=== PATIENT | female | born 1955 | race Caucasian/White ===

== ENCOUNTER 2016-11-01 12:24 | Outpatient (CLI) | payer MEDICARE, MEDICAID | END 2016-11-01 12:25 | disposition critical access hospital (66) | LOC: EMS 12:24 | PROVIDERS: ATTEND Surgery | DX: R10.9 Unspecified abdominal pain (principal) | CPT/HCPCS: A0425; A0427 ==

== ENCOUNTER 2016-11-01 12:49 | Emergency (ER) | payer MEDICARE, MEDICAID ==
[2016-11-01] MEDS ORDERED: HYDROmorphone 1 MG/ML SYRINGE IVP STA ×2 (13:10→16:34)
--- NOTE | 2016-11-01 13:15 | ED Physician Documentation ---
PD HPI ABD PAIN - Stated complaint Stated Complaint: ABD PX - Chief complaint Chief Complaint: Abd Pain - History obtained from History obtained from: Patient, EMS - History of Present Illness Timing - onset: Other (This is a 61-year-old woman who presents by an ambulance for abdominal pain. 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 She has had multiple abdominal surgeries including appendectomy, bowel resections for diverticulitis et cetera. She was seen here on April 21 of last year and sent to [place] for common bile duct stone associated with the above complicated medical issues. She was treated conservatively there with antibiotics per her without ERCP or surgical intervention based on her comorbidities. She was feeling okay for a while after antibiotics but for the last month has had constant right upper quadrant pain radiating to the back associated with poor appetite and incontinence of urine and bowel. She is noncompliant with all of her medications including insulin, warfarin et cetera. She hasn't taken any medications for the last month. She is care for at home by her son.) Review of Systems Ten Systems: 10 systems reviewed and negative Constitutional: denies: Fever, Chills Nose: denies: Rhinorrhea / runny nose, Congestion Cardiac: denies: Chest pain / pressure, Palpitations Respiratory: reports: Dyspnea, Cough GI: denies: Vomiting, Diarrhea PD PAST MEDICAL HISTORY - Past Medical History Past Medical History: Yes Cardiovascular: Hypertension, Coronary artery disease, Deep vein thrombosis, [place] Respiratory: Asthma, COPD, Emphysema Neuro: CVA, Head injury, Fainting Endocrine/Autoimmune: Type 2 diabetes GI: Hiatal hernia, Hemorrhoids, Diverticulitis : None Psych: Depression, Anxiety Musculoskeletal: Gout Derm: None - Past Surgical History Past Surgical History: Yes General: Appendectomy, Bowel surgery 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 - Present Medications Home Medications: Ambulatory Orders Medication Instructions Recorded Confirmed Gabapentin [Neurontin] 1,200 mg PO Q8H 01/15/15 11/01/16 Warfarin Sodium [Coumadin] 5 mg PO DAILY 01/15/15 11/01/16 Metoprolol Tartrate 25 mg PO DAILY 11/07/15 11/01/16 Insulin Lispro Protamin/Lispro 15 units SUBQ BID 11/01/16 11/01/16 [Humalog Mix 75-25 Kwikpen] Lisinopril 5 mg ORAL DAILY 11/01/16 11/01/16 Spironolactone 25 mg ORAL DAILY 11/01/16 11/01/16 buPROPion [Wellbutrin Sr] 100 mg ORAL BID 11/01/16 11/01/16 traMADol [Ultram] 50 mg ORAL DAILY 11/01/16 11/01/16 - Allergies Allergies/Adverse Reactions: Allergies Allergy/AdvReac Type Severity Reaction Status Date / Time latex Allergy Unknown Verified 11/01/16 12:58 levofloxacin Allergy Itching Verified 07/15/15 11:57 levopropoxyphene Allergy Unknown Verified 11/01/16 12:58 Penicillins Allergy Hives Verified 07/15/15 11:57 - Social History Does the pt smoke?: Yes Smoking Status: Former smoker Does the pt drink ETOH?: No Does the pt have substance abuse?: Yes - Family History Family history: reports: Non contributory - Immunizations Immunizations are current?: No Immunizations: TDAP >10years/unknown - POLST Patient has POLST: No PD ED PE NORMAL - Vitals Vital signs reviewed: Yes - General General: Alert and oriented X 3, No acute distress - HEENT HEENT: PERRL, EOMI - Neck Neck: Supple, no meningeal sign, No bony TTP - Cardiac Cardiac: RRR, No murmur - Respiratory Respiratory: No respiratory distress, Clear bilaterally - Abdomen Abdomen: Other (TTP RUQ without G/R) - Back Back: No CVA TTP, No spinal TTP - Extremities Extremities: Other (Bilateral LE amputations ) - Neuro Neuro: Alert and oriented X 3, Normal speech - Psych Psych: Normal mood, Normal affect Results - Vitals Vitals: Vital Signs - 24 hr 11/01/16 11/01/16 11/01/16 12:54 14:43 16:43 Temperature 36.9 C Heart Rate 90 88 87 Respiratory 18 18 20 Rate Blood Pressure 137/94 H 134/84 H 139/94 H O2 Saturation 94 92 96 11/01/16 11/01/16 17:54 18:45 Temperature 35.9 C L Heart Rate 88 Respiratory 20 Rate Blood Pressure 144/92 H O2 Saturation 90 L 92 Oxygen O2 Source Room air - EKG (time done) 1326 Rate: Rate (enter#) (90) Rhythm: NSR QRS: LVH Ischemia: Q waves (anterior), Non specific changes Computer interpretation: Agree with computer - Labs Labs: Laboratory Tests 11/01/16 11/01/16 11/01/16 13:44 13:44 13:44 WBC 11.4 H RBC 3.52 L Hgb 11.3 L Hct 33.6 L MCV 95.6 MCH 32.0 H MCHC 33.5 RDW 15.5 H Plt Count 218 MPV 8.2 Neut # 7.8 H Lymph # 2.4 [place] # 1.0 Eos # 0.1 Baso # 0.1 Absolute Nucleated RBC 0.03 Nucleated RBCs 0.2 PT 17.1 H INR 1.5 H Sodium 133 L Potassium 4.6 Chloride 101 Carbon Dioxide 22 Anion Gap 10.0 BUN 27 H Creatinine 0.6 Estimated GFR (MDRD) 102 Glucose 197 H Lactic Acid Calcium 8.3 L Total Bilirubin 0.8 AST 199 H ALT 494 H Alkaline Phosphatase 102 Troponin I Total Protein 6.0 L Albumin 3.0 L Globulin 3.0 Albumin/Globulin Ratio 1.0 Lipase 12 L 11/01/16 11/01/16 13:44 13:44 WBC RBC Hgb Hct MCV MCH MCHC RDW Plt Count MPV Neut # Lymph # [place] # Eos # Baso # Absolute Nucleated RBC Nucleated RBCs PT INR Sodium Potassium Chloride Carbon Dioxide Anion Gap BUN Creatinine Estimated GFR (MDRD) Glucose Lactic Acid 1.7 Calcium Total Bilirubin AST ALT Alkaline Phosphatase Troponin I 0.04 Total Protein Albumin Globulin Albumin/Globulin Ratio Lipase - Rads (name of study) RUQ sono Radiology: EMP read contemporaneously (cholelithiasis with with 7mm GB wall and 8mm CBD) PD MEDICAL DECISION MAKING - ED course ED course: 61-year-old woman with multiple comorbidities including ischemic cardiomyopathy , coronary disease presents with one month of right upper quadrant pain, and has cholecystitis with liver enzyme abnormalities on examination. Her discharge summary from [facility] was reviewed, previously had negative HIDA scan. But now seems like she does have cholecystitis. Surgeon here was consulted, Dr. Morin who felt that given her comorbidities needed to be transferred and [facility] was called at 430 p.m. Accepted to the hospitalist service there shortly thereafter by Dr. Dobbins Departure - Departure Disposition: 02 Transfer Acute Care Hosp Clinical Impression: Cholecystitis Condition: Stable Discharge Date/Time: 11/01/16 19:12
[2016-11-01] MEDS ORDERED: HYDROmorphone 1 MG/ML SYRINGE ONE ×2 (13:17→16:36)
--- NOTE | 2016-11-01 13:50 | XRAY Report ---
EXAM: CHEST RADIOGRAPHY EXAM DATE: 11/01/2016 01:24 PM. CLINICAL HISTORY: Cough. COMPARISON: None. TECHNIQUE: 1 view. FINDINGS: Lungs/Pleura: Irregular opacities in left lung base medially. No pleural effusion or pneumothorax. Mediastinum: Within exam limitations, cardiomediastinal contour is normal. Other: None. IMPRESSION: Irregular opacities in left lung base medially may represent atelectasis, aspiration or i nfectious process. [facility] Referring Provider Line: [phone] SITE ID: [id number]
[2016-11-01 13:52] LABS: BASOPHILS # (AUTO) 0.1 10^3/uL (0.0-0.1); BASOPHILS % (AUTO) 0.8 %; EOSINOPHILS # (AUTO) 0.1 10^3/uL (0.0-0.7); EOSINOPHILS % (AUTO) 0.5 %; HCT - HEMATOCRIT 33.6 % (37.0-47.0); HGB - HEMOGLOBIN 11.3 g/dL (12.0-16.0); LYMPHOCYTES # (AUTO) 2.4 10^3/uL (1.5-3.5); LYMPHOCYTES % (AUTO) 21.1 %; MEAN CORPUSCULAR HGB CONC 33.5 g/dL (32.0-36.0); MEAN CORPUSCULAR VOLUME 95.6 fL (81.0-99.0); MEAN PLATELET VOLUME 8.2 fL (7.9-10.8); MONOCYTES % (AUTO) 9.1 %; NEUTROPHILS # (AUTO) 7.8 10^3/uL (1.5-6.6); NEUTROPHILS % (AUTO) 68.5 %; NUCLEATED RED BLOOD CELLS AUTO 0.2 /100WBC; RED BLOOD COUNT 3.52 10^6/uL (4.20-5.40); RED CELL DISTRIBUTION WIDTH 15.5 % (12.0-15.0); UNCORRECTED WHITE BLOOD COUNT 11.4 x10^3/uL; WHITE BLOOD COUNT 11.4 x10^3/uL (4.8-10.8)
[2016-11-01 13:58] LABS: INR 1.5 (0.8-1.2); PT - PROTHROMBIN TIME 17.1 secs (9.9-12.6)
[2016-11-01 14:11] LABS: BILIRUBIN,TOTAL 0.8 mg/dL (0.2-1.0); CALCIUM 8.3 mg/dL (8.5-10.3); CREATININE 0.6 mg/dL (0.4-1.0); POTASSIUM 4.6 mmol/L (3.5-5.0)
[2016-11-01] MEDS ORDERED: metroNIDAZOLE 500 MG/100 ML 100 ML IV ONE (16:34)
[2016-11-01] MEDS ORDERED: cefTRIAXone 1 GM in SODIUM CHLORIDE 0.9% MINIBAG 100 ML IV STA (16:34)
[2016-11-01] MEDS ORDERED: cefTRIAXone 1 GM VIAL ONE (16:36)
--- NOTE | 2016-11-01 17:06 | Ultrasound Report ---
RIGHT UPPER QUADRANT ULTRASOUND: 11/01/2016 CLINICAL INDICATION: Pain. COMPARISON: 04/21/2016 TECHNIQUE: Real-time scanning was performed with medical service representative static images obtained. The liver measures 18.9 cm. Hepatic echotexture is normal. No intrahepatic biliary dilatation or focal parenchymal lesion is seen. The common bile duct is again prominent, measuring 8 mm. The gallbladder demonstrates stones and sludge within the lumen. Gallbladder wall thickening has increased, now measuring 7 mm (previously 4 mm). The right kidney measures 10.6 cm, and demonstrates a small cortical cyst and trace perinephric fluid. Right pleural effusion is again noted. IMPRESSION: INCREASING GALLBLADDER WALL THICKENING. STABLE CHOLELITHIASIS. STABLE PROMINENCE OF THE COMMON BILE DUCT. JOB #: [id number] EXT JOB #: [id number]
[2016-11-01] MEDS ORDERED: metroNIDAZOLE 500 MG/100 ML 100 ML ONE (17:11)
[2016-11-01 17:54] VITALS: BP 144/92
== END 2016-11-01 19:12 | disposition short-term general hospital (02) ==
LOC: EDUNIT# → ED 12:49 → SUPCPDRO 12:49 → ED 19:12
DX: K81.9 Cholecystitis, unspecified (principal); E11.9 Type 2 diabetes mellitus without complications; Z79.4 Long term (current) use of insulin; I25.10 Atherosclerotic heart disease of native coronary artery without angina pectoris; I10 Essential (primary) hypertension; I25.2 Old myocardial infarction; J44.9 Chronic obstructive pulmonary disease, unspecified; J45.909 Unspecified asthma, uncomplicated; Z86.73 Personal history of transient ischemic attack (TIA), and cerebral infarction without residual deficits; Z86.718 Personal history of other venous thrombosis and embolism; Z79.01 Long term (current) use of anticoagulants; T38.3X6A Underdosing of insulin and oral hypoglycemic [antidiabetic] drugs, initial encounter; T45.516A Underdosing of anticoagulants, initial encounter; Z87.891 Personal history of nicotine dependence; M10.9 Gout, unspecified; Z89.612 Acquired absence of left leg above knee; Z89.611 Acquired absence of right leg above knee
CPT/HCPCS: 36415; 71010; 76705; 80053; 83605; 83690; 84484; 85025; 85610; 93005; 93010; 96374; 96375; 96376; 99284; 99285; J1170

== ENCOUNTER 2016-11-01 18:58 | Outpatient (CLI) | payer MEDICARE, MEDICAID | END 2016-11-01 18:59 | disposition short-term general hospital (02) | LOC: EMS 18:58 | PROVIDERS: ATTEND Surgery | DX: K81.9 Cholecystitis, unspecified (principal) | CPT/HCPCS: A0425; A0426 ==

== ENCOUNTER 2016-12-22 15:33 | Outpatient (CLI) | payer MEDICARE, MEDICAID | END 2016-12-22 15:34 | disposition critical access hospital (66) | LOC: EMS 15:33 | PROVIDERS: ATTEND Surgery | DX: R30.9 Painful micturition, unspecified (principal); R46.89 Other symptoms and signs involving appearance and behavior | CPT/HCPCS: A0425; A0429 ==

== ENCOUNTER 2016-12-22 15:56 | Inpatient (IN) | payer MEDICARE, MEDICAID ==
[2016-12-22] MEDS ORDERED: SODIUM CHLORIDE 0.9% 1,000 ML IV ONE ×2 (16:05)
[2016-12-22] MEDS ORDERED: SODIUM CHLORIDE 0.9% 500 ML IV ONE (16:07)
--- NOTE | 2016-12-22 16:11 | ED Physician Documentation ---
History of Present Illness - Stated complaint Stated Complaint: FAILURE TO THRIVE - Chief complaint Chief Complaint: General - History obtained from History obtained from: Patient, EMS - History of Present Illness Timing: Other (1 month) Pain level max: 4 Pain level now: 3 Improved by: nothing Worsened by: nothing - Additonal information Additional information: Patient is a 61 year old female with a history of DM, CHF, cardiac disease. Per EMS, family states she has been non-compliant with her medications for at least the last month. (Last ED note 11/01 states noncompliant for at least a month at that time). States decreased appetite for several months. Lying in bed daily at home. Not seeing psychiatry or counseling. States feels depressed Review of Systems Ten Systems: 10 systems reviewed and negative Constitutional: denies: Fever, Chills Ears: denies: Ear pain Nose: denies: Rhinorrhea / runny nose, Congestion Throat: denies: Sore throat Cardiac: denies: Chest pain / pressure Respiratory: denies: Cough GI: denies: Nausea, Vomiting, Diarrhea Skin: denies: Rash Musculoskeletal: denies: Neck pain, Back pain Neurologic: reports: Generalized weakness. denies: Focal weakness, Numbness, Seizure, Confused, Altered mental status, Headache Psychiatric: reports: Depressed. 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 - Present Medications Home Medications: Ambulatory Orders Medication Instructions Recorded Confirmed Gabapentin [Neurontin] 1,200 mg PO Q8H 01/15/15 11/01/16 Warfarin Sodium [Coumadin] 5 mg PO DAILY 01/15/15 12/22/16 Metoprolol Tartrate 25 mg PO BID 11/07/15 12/22/16 Insulin Lispro Protamin/Lispro 15 units SUBQ BID 11/01/16 12/22/16 [Humalog Mix 75-25 Kwikpen] Lisinopril 5 mg ORAL DAILY 11/01/16 12/22/16 Spironolactone 25 mg ORAL BID 11/01/16 12/22/16 buPROPion [Wellbutrin Sr] 100 mg ORAL BID 11/01/16 12/22/16 traMADol [Ultram] 50 mg ORAL Q6HR 11/01/16 12/22/16 Ascorbic Acid [Vitamin C] 500 mg PO DAILY 12/22/16 12/22/16 Ascorbic Acid [Vitamin C] 500 mg PO DAILY 12/22/16 12/22/16 DULoxetine [Cymbalta] 40 mg PO DAILY 12/22/16 12/22/16 Ferrous Sulfate 325 mg PO BID 12/22/16 12/22/16 Multivit with Calcium,Iron,Min 1 each PO DAILY 12/22/16 12/22/16 [Multiple Vitamins For Women] - Allergies Allergies/Adverse Reactions: Allergies Allergy/AdvReac Type Severity Reaction Status Date / Time latex Allergy Unknown Verified 11/01/16 12:58 levofloxacin Allergy Itching Verified 07/15/15 11:57 levopropoxyphene Allergy Unknown Verified 11/01/16 12:58 Penicillins Allergy Hives Verified 07/15/15 11:57 - Social History Does the pt smoke?: Yes Smoking Status: Former smoker Does the pt drink ETOH?: No Does the pt have substance abuse?: Yes - Immunizations Immunizations are current?: No Immunizations: TDAP >10years/unknown - POLST Patient has POLST: No PD ED PE NORMAL - Vitals Vital signs reviewed: Yes - General General: Alert and oriented X 3, No acute distress - HEENT HEENT: PERRL, Ears normal, Pharynx benign, Other (dry lips) - Neck Neck: Supple, no meningeal sign - Cardiac Cardiac: RRR, Strong equal pulses - Respiratory Respiratory: No respiratory distress, Clear bilaterally - Abdomen Abdomen: Soft, Non tender, Non distended - Back Back: No CVA TTP, No spinal TTP - Derm Derm: Warm and dry - Extremities Extremities: Other (B BKA. no signs of infection.) - Neuro Neuro: Alert and oriented X 3 - Psych Psych: Normal mood, Normal affect Results - Vitals Vitals: Vital Signs - 24 hr 12/22/16 16:00 Temperature 36.6 C Heart Rate 91 Respiratory 14 Rate Blood Pressure 157/107 H O2 Saturation 100 Oxygen O2 Source Room air - EKG (time done) 1816 Rate: Rate (enter#) (94) Rhythm: NSR [place]: Normal Intervals: Normal PA QRS: LVH Ischemia: ST elevation c/w repol, Q waves (V2-5) Computer interpretation: Agree with computer - Labs Labs: Laboratory Tests 12/22/16 12/22/16 12/22/16 16:30 16:30 18:10 WBC 13.6 H RBC 5.17 Hgb 15.3 Hct 48.1 H MCV 93.0 MCH 29.5 MCHC 31.8 L RDW 17.6 H Plt Count 178 MPV 8.8 Neut # 11.5 H Lymph # 1.2 L [place] # 1.0 Eos # 0.0 Baso # 0.0 Absolute Nucleated RBC 0.13 Nucleated RBCs 0.9 PT 16.5 H INR 1.5 H Sodium 125 L Potassium 5.9 H Chloride 90 L Carbon Dioxide 23 Anion Gap 12.0 BUN 62 H Creatinine 1.0 Estimated GFR (MDRD) 57 L Glucose 153 H Glycated Hemoglobin Estim Average Glucose Calcium 8.4 L Total Bilirubin 1.6 H AST 27 ALT 58 Alkaline Phosphatase 133 H Total Creatine Kinase Total Protein 6.3 L Albumin 2.6 L Globulin 3.7 Albumin/Globulin Ratio 0.7 L Lipase 12 L Salicylates < 6.0 Acetaminophen < 10 L Ethyl Alcohol < 5.0 12/22/16 12/22/16 18:10 18:10 WBC RBC Hgb Hct MCV MCH MCHC RDW Plt Count MPV Neut # Lymph # [place] # Eos # Baso # Absolute Nucleated RBC Nucleated RBCs PT INR Sodium Potassium Chloride Carbon Dioxide Anion Gap BUN Creatinine Estimated GFR (MDRD) Glucose Glycated Hemoglobin 8.3 H Estim Average Glucose 192 H Calcium Total Bilirubin AST ALT Alkaline Phosphatase Total Creatine Kinase 108 Total Protein Albumin Globulin Albumin/Globulin Ratio Lipase Salicylates Acetaminophen Ethyl Alcohol PD MEDICAL DECISION MAKING - ED course Complexity details: reviewed results, re-evaluated patient, considered differential, d/w patient, d/w security system 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 She is likely profoundly depressed. Will likely need psychiatric care after her acute medical issues are taken care of. She is found to be hyperkalemic and hyponatremic. She did not urinate in the emergency department and this will need to be performed on the floor to evaluate for potential infection. She was given IV fluids. No acute EKG changes. Sodium will need to be corrected slowly. Discussed the case with the hospitalist who accepts. This document was made in part using voice recognition software. While efforts are made to proofread this document, sound alike and grammatical errors may occur. Departure - Departure Disposition: 66 [facility] DC/Xfer Clinical Impression: Hyponatremia, Acute hypokalemia Leukocytosis Qualifiers: Leukocytosis type: unspecified Qualified Code(s): D72.829 - Elevated white blood cell count, unspecified Condition: Stable Discharge Date/Time: 12/22/16 19:41
[2016-12-22 17:01] LABS: ALBUMIN/GLOBULIN RATIO 0.7 (1.0-2.2); BILIRUBIN,TOTAL 1.6 mg/dL (0.2-1.0); BUN - BLOOD UREA NITROGEN 62 mg/dL (6-20); CALCIUM 8.4 mg/dL (8.5-10.3); CARBON DIOXIDE - CO2 23 mmol/L (21-32); CHLORIDE 90 mmol/L (101-111); GFR - MDRD 57 (>89); GLUCOSE 153 mg/dL (70-100); LIPASE 12 U/L (22-51); POTASSIUM 5.9 mmol/L (3.5-5.0); SALICYLATE < 6.0 mg/dL; SODIUM 125 mmol/L (135-145); TOTAL PROTEIN 6.3 g/dL (6.7-8.2)
[2016-12-22 17:03] LABS: ACETAMINOPHEN < 10 ug/mL (10-30)
[2016-12-22 17:15] LABS: BASOPHILS % (AUTO) 0.1 %; EOSINOPHILS % (AUTO) 0.1 %; HCT - HEMATOCRIT 48.1 % (37.0-47.0); HGB - HEMOGLOBIN 15.3 g/dL (12.0-16.0); LYMPHOCYTES # (AUTO) 1.2 10^3/uL (1.5-3.5); LYMPHOCYTES % (AUTO) 8.5 %; MEAN CORPUSCULAR HEMOGLOBIN 29.5 pg (27.0-31.0); MEAN CORPUSCULAR HGB CONC 31.8 g/dL (32.0-36.0); MEAN PLATELET VOLUME 8.8 fL (7.9-10.8); MONOCYTES % (AUTO) 7.1 %; NEUTROPHILS # (AUTO) 11.5 10^3/uL (1.5-6.6); NEUTROPHILS % (AUTO) 84.2 %; NUCLEATED RED BLOOD CELLS AUTO 0.9 /100WBC; RED BLOOD COUNT 5.17 10^6/uL (4.20-5.40); RED CELL DISTRIBUTION WIDTH 17.6 % (12.0-15.0); UNCORRECTED WHITE BLOOD COUNT 13.6 x10^3/uL; WHITE BLOOD COUNT 13.6 x10^3/uL (4.8-10.8)
[2016-12-22 18:22] LABS: INR 1.5 (0.8-1.2); PT - PROTHROMBIN TIME 16.5 secs (9.9-12.6)
[2016-12-22] MEDS ORDERED: PROCHLORPERAZINE 10 MG/2 ML VIAL IVP PRN ×2 (19:03→20:00)
[2016-12-22] MEDS ORDERED: ONDANSETRON 4 MG/2 ML VIAL IVP PRN (19:03)
[2016-12-22] MEDS ORDERED: ACETAMINOPHEN 325 MG TABLET PO PRN (19:03)
[2016-12-22] MEDS ORDERED: SODIUM CHLORIDE FLUSH 0.9% 10 ML SYRINGE IVP PRN ×2 (19:03→20:00)
[2016-12-22] MEDS ORDERED: TEMAZEPAM 15 MG CAPSULE PO PRN ×2 (19:03→20:00)
[2016-12-22] MEDS ORDERED: SODIUM POLYSTYRENE SULFONATE 15 GM/60 ML BOTTLE PO SCH (19:15)
[2016-12-22] MEDS ORDERED: SODIUM POLYSTYRENE SULFONATE 15 GM/60 ML BOTTLE PO STA (19:15)
[2016-12-22 19:32] LABS: HEMOGLOBIN A1C 1.07 g/dL
[2016-12-22] MEDS ORDERED: SODIUM CHLORIDE 0.9% 1,000 ML IV SCH (20:00)
[2016-12-22] MEDS: INSULIN ASPART 300 UNIT/3 ML PEN SUBQ SCH (20:30)
[2016-12-22] MEDS: HEPARIN 5,000 UNIT/ML VIAL SUBQ SCH (20:39)
[2016-12-22] MEDS: ONDANSETRON 4 MG/2 ML VIAL IVP PRN (20:39)
[2016-12-22] MEDS: ACETAMINOPHEN 325 MG TABLET PO PRN (20:58)
[2016-12-22] MEDS ORDERED: HEPARIN 5,000 UNIT/ML VIAL SUBQ SCH (21:00)
[2016-12-22] MEDS ORDERED: INSULIN ASPART 300 UNIT/3 ML PEN SUBQ SCH (21:00)
[2016-12-22] MEDS: SODIUM CHLORIDE FLUSH 0.9% 10 ML SYRINGE IVP SCH (21:04)
[2016-12-22] MEDS: SODIUM CHLORIDE 0.9% 1,000 ML IV SCH (21:09)
[2016-12-22] MEDS: METOPROLOL TARTRATE 25 MG TABLET PO SCH (21:16)
[2016-12-22] MEDS ORDERED: SODIUM CHLORIDE FLUSH 0.9% 10 ML SYRINGE IVP SCH (22:00)
--- NOTE | 2016-12-22 23:26 | PROVIDER PROGRESS NOTE ---
Hospitalist Cross-cover Note - Cross-Cover Note Cross-Cover Note: Called to bedside to look at rash on pt buttock. Pt states she has had the pain for several weeks. Pain is deep, burning sensation. On exam, pt has multiple small blistering lesions in dermatomal distributionon L buttock (S2 or s3). +crusting on some lesions, no appearance of new lesions. mild base erythema, no evidence of obvious secondary infection. - pt is outside time frame for acyclovir as lesion has likely been well over 72hrs and no evidence of new lesions - will try topical lidocaine for pain control, but may need oral medications as well. - standard contact precautions for health care workers - if possible or immunocompromised health care workers should not care for patient
[2016-12-23] MEDS: LIDOCAINE OINTMENT 5% 35.44 GM TUBE TOP SCH ×5 (01:39→21:19)
[2016-12-23] MEDS: GABAPENTIN 100 MG CAPSULE PO SCH ×4 (01:40→21:21)
[2016-12-23] MEDS: traMADol 50 MG TABLET PO PRN ×2 (01:57→10:59)
[2016-12-23] MEDS: SODIUM CHLORIDE 0.9% 1,000 ML IV SCH ×2 (05:14→16:12)
[2016-12-23] MEDS: SODIUM CHLORIDE FLUSH 0.9% 10 ML SYRINGE IVP SCH ×3 (07:17→21:21)
[2016-12-23 08:15] LABS: BASOPHILS % (AUTO) 0.5 %; EOSINOPHILS % (AUTO) 0.3 %; HCT - HEMATOCRIT 42.1 % (37.0-47.0); HGB - HEMOGLOBIN 13.5 g/dL (12.0-16.0); LYMPHOCYTES # (AUTO) 1.2 10^3/uL (1.5-3.5); LYMPHOCYTES % (AUTO) 13.2 %; MEAN CORPUSCULAR HEMOGLOBIN 29.4 pg (27.0-31.0); MEAN CORPUSCULAR VOLUME 91.7 fL (81.0-99.0); MEAN PLATELET VOLUME 8.6 fL (7.9-10.8); MONOCYTES # (AUTO) 0.8 10^3/uL (0.0-1.0); MONOCYTES % (AUTO) 8.9 %; NEUTROPHILS % (AUTO) 77.1 %; NUCLEATED RED BLOOD CELLS AUTO 1.1 /100WBC; RED BLOOD COUNT 4.59 10^6/uL (4.20-5.40); RED CELL DISTRIBUTION WIDTH 17.6 % (12.0-15.0); UNCORRECTED WHITE BLOOD COUNT 9.1 x10^3/uL; WHITE BLOOD COUNT 9.1 x10^3/uL (4.8-10.8)
[2016-12-23] MEDS: INSULIN ASPART 300 UNIT/3 ML PEN SUBQ SCH ×4 (08:20→21:19)
[2016-12-23 08:27] LABS: ALBUMIN/GLOBULIN RATIO 0.7 (1.0-2.2); BILIRUBIN,TOTAL 1.1 mg/dL (0.2-1.0); CALCIUM 7.5 mg/dL (8.5-10.3); CREATININE 0.8 mg/dL (0.4-1.0); MAGNESIUM 1.7 mg/dL (1.7-2.8); POTASSIUM 4.3 mmol/L (3.5-5.0); TOTAL PROTEIN 5.4 g/dL (6.7-8.2)
[2016-12-23] MEDS ORDERED: POLYETHYLENE GLYCOL 3350 17 GM PACKET PO SCH (09:00)
[2016-12-23] MEDS ORDERED: FAMOTIDINE 20 MG TABLET PO SCH (09:00)
[2016-12-23] MEDS ORDERED: DULoxetine 30 MG CAPSULE PO SCH (09:00)
[2016-12-23] MEDS: HEPARIN 5,000 UNIT/ML VIAL SUBQ SCH ×2 (10:52→21:21)
[2016-12-23] MEDS: FAMOTIDINE 20 MG TABLET PO SCH (10:52)
[2016-12-23] MEDS: METOPROLOL TARTRATE 25 MG TABLET PO SCH ×3 (10:52→21:19)
[2016-12-23] MEDS: POLYETHYLENE GLYCOL 3350 17 GM PACKET PO SCH (10:52)
[2016-12-23 11:59] LABS: BILIRUBIN,URINE NEGATIVE (NEGATIVE)
[2016-12-23 12:43] LABS: UR CULTURE IF IND NOT INDICATED; WBC,URINE 0-3 /HPF (0-5)
--- NOTE | 2016-12-23 13:07 | HISTORY & PHYSICAL EXAMINATION ---
Chief Complaint - Chief Complaint Chief Complaint: generalized weakness History of Present Illness - Admitted From Admitted From:: emergence department - History Obtained From History obtained from: patient - History of Present Illness HPI Comment/Other: this is a 61-year-old Cauc[place] female with significant past medical history of COPD, hypertension, DM2, seizure, urinary incontinence, diverticulitis, coronary artery disease with am MA in 2015 complicated with ventricular thrombus and embolic events including a CVA and emboli to the lower extremities , which requires bilateral lower extremities amputations, who present emergence department for evaluation of generalized weakness, dysuria, and failure to thrive. Patient state she has been lying in the bed daily for one month. She report she was loss of appetite for more than one month but denies loss of weight. She report she had history urinary incontinence. She had dysuria for about one week but denies hematuria. Patient state she has been burning sensation and pain at her left toyin and back area for more than two weeks. Patient report heart burning but denies chest pain, shortness of breathing. Patient report cough but without sputum. Patient report depression abut denies suicidal ideation or attempt. Patient denies fever, chill, headache, GI bleeding. No nausea, vomiting or diarrhea. Lab test Na 125, K 5.9, and slight elevated WBC at 13.6, HGB 15.3, Plt 178, creatinine 1.0, BUN 62. UA and UDS are pending. Patient is admitted for evaluation of generalized weakness and follow up. Review of Systems - Constitutional Constitutional: reports: Fatigue, Weakness, Poor appetite. denies: Fever, Chills, Diaphoresis, Night sweats, Weight gain, Weight loss - Eyes Eyes: denies: Pain, Irritation, Amaurosis, Blurred vision, Spots in vision, Field loss, Vision loss, Dipolpia - Ears, Nose & Throat Ears, Nose & Throat: denies: Ear pain, Hearing loss, Hearing aids, Tinnitus, Vertigo, Nasal pain, Nasal discharge, Nosebleeds, Nasal obstruction, Nasal congestion, Postnasal drainage, Sore throat - Cardiovascular Cariovascular: denies: Irregular heart rate, Palpitations, Chest pain, Edema, Lightheadedness, Syncope, Exertional dyspnea, Orthopnea - Respiratory Respiratory: reports: Cough. denies: Sputum production, Wheezing, Snoring, Hemoptysis, Orthopnea, SOB at rest, SOB with exertion, Apnea - Gastrointestinal Gastrointestinal: reports: Abdominal pain (left flank topic burning pain), Reflux/heartburn, Poor appetite. denies: Abdominal distention, Constipation, Diarrhea, Change in bowel habits, Rectal bleeding, Black stools, Nausea, Vomiting, Toyin blood emesis, Coffee grounds emesis - Genitourinary Genitourinary: reports: Dysuria, Incontinence. denies: Frequency, Urgency, Hematuria - Musculoskeletal Musculoskeletal: reports: Back pain, Muscle weakness. denies: Muscle aches, Stiffness, Gout, Joint pain - Integumentary Integumentary: reports: Rash, Lesions. denies: Dryness, Lumps, Acne, Pigment changes - Neurological Neurological: reports: General weakness. denies: Focal weakness, Headache, Dizziness, Numbness, Seizures, Incoordination, Slurred speech - Psychiatric Psychiatric: reports: Depression. denies: Anxiety, Suicidal, Delusions, Hallucinations, Homicidal - Endocrine Endocrine: denies: Polyuria, Polydypsia, Polyphagia, Intolerance to cold - Hematologic/Lymphatic Hematologic/Lymphatic: denies: Bruising, Petechiae, Lymphadenopathy, Bleeding tendencies History - Past Medical History Cardiovascular: reports: Hypertension, Coronary artery disease, Deep vein thrombosis, [place] Respiratory: reports: Asthma, COPD, Emphysema Neuro: reports: CVA, Head injury, Fainting Endocrine/Autoimmune: reports: Type 2 diabetes GI: reports: Hiatal hernia, Hemorrhoids, Diverticulitis : reports: None Psych: reports: Depression, Anxiety Musculoskeletal: reports: Gout Derm: reports: None MRSA Hx?: Yes - Past Surgical History General: reports: Appendectomy, Bowel surgery 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 - POLST Patient has POLST: No Meds/Allgy - Home Medications Home Medications: Ambulatory Orders Medication Instructions Recorded Confirmed Warfarin Sodium [Coumadin] 5 mg PO DAILY 01/15/15 12/23/16 Metoprolol Tartrate 25 mg PO BID 11/07/15 12/23/16 Insulin Lispro Protamin/Lispro 15 units SUBQ BID 11/01/16 12/23/16 [Humalog Mix 75-25 Kwikpen] Lisinopril 5 mg ORAL DAILY 11/01/16 12/23/16 Spironolactone 25 mg ORAL BID 11/01/16 12/23/16 traMADol [Ultram] 50 mg ORAL Q6HR 11/01/16 12/23/16 Ascorbic Acid [Vitamin C] 500 mg PO DAILY 12/22/16 12/23/16 DULoxetine [Cymbalta] 40 mg PO DAILY 12/22/16 12/23/16 Ferrous Sulfate 325 mg PO BIDWM 12/22/16 12/23/16 Multivit with Calcium,Iron,Min 1 each PO DAILY 12/22/16 12/23/16 [Multiple Vitamins For Women] - Allergies Allergies/Adverse Reactions: Allergies Allergy/AdvReac Type Severity Reaction Status Date / Time latex Allergy Unknown Verified 11/01/16 12:58 levofloxacin Allergy Itching Verified 07/15/15 11:57 levopropoxyphene Allergy Unknown Verified 11/01/16 12:58 Penicillins Allergy Hives Verified 07/15/15 11:57 Exam - Vital Signs Vital Signs: Vital Signs x48h Temp Pulse Resp BP Pulse Ox 12/23/16 07:49 36.4 C L 77 16 136/90 H 97 12/23/16 06:33 36.4 C L 78 16 108/78 96 - Physical Exam General Appearance: positive: Alert, Mild distress. negative: Anxious, Lethargic Eyes Bilateral: positive: Normal inspection, PERRL, EOMI. negative: No lid inflammation, Conjunctivae nml ENT: positive: ENT inspection nml, Pharynx nml, Dry mucous membranes. negative : Purulent nasal drainage, Pharyngeal erythema, Oral lesions Neck: positive: Nml inspection, Thyroid nml, Trachea midline. negative: Lymphadenopathy (R), Lymphadenopathy (L), Stiff neck, Carotid bruit, Swelling/ bruising Respiratory: positive: Chest non-tender, No respiratory distress, Breath sounds nml, Other (cough without sputum). negative: Wheezes, Rales, Rhonchi Cardiovascular: positive: Regular rate & rhythm, No murmur, No gallop. negative : Tachycardia, Bradycardia, Systolic murmur, Diastolic murmur Abdomen: positive: Non-tender, No distention, Other (mild slower bowel sound but pt tolerate food and had bowel movement without diarrhea). negative: Tenderness, Guarding, Rebound Back: positive: Other (red with dry bruits at left lower back flank area). negative: CVA tenderness (R), CVA tenderness (L) Skin: positive: Warm, Dry, Skin rash. negative: Diaphoresis, Pallor, Puncture wound, Embolic lesions Extremities: positive: Non-tender, Other (amputation of bilerate lower extremities) Neurologic/Psychiatric: positive: Oriented x3, Sensation nml, Weakness, Depressed mood/affect. negative: Disoriented to person, Disoriented to place, Disoriented to time, Facial droop, Slurred/abnml speech Conclusion/Plan - Problem List (1) Generalized weakness Conclusion/Plan: combination of pt's medical conditions, PT evaluation and treatment, closely monitor (2) Hyponatremia Conclusion/Plan: Na125, mild to moderate NS IVF and slowly correct the lower sodium (3) Hyperkalemia Conclusion/Plan: K5.9, pt denies chest pain, palpitation, SOB, order once kayalxate, on tele, closely monitor (4) Dysuria Conclusion/Plan: order UA, follow up (5) DM2 (diabetes mellitus, type 2) Conclusion/Plan: resume home meds, slide scale (6) Left flank pain Conclusion/Plan: appear herpes zoster, not acute it has been two weeks after pt had the initially symptoms Lidocaine cream topical Gabapentin (7) HTN (hypertension) Conclusion/Plan: stable, reconciliaition of home meds, monitor (8) History of embolism Conclusion/Plan: check daily PT/INR, will resume Coumadin after PT/INR (9) Depression Conclusion/Plan: resume home meds, closely monitor - Lab Results Fish Bones: 12/23/16 08:08 12/23/16 08:08 Issues/Core Measures - Anticipated LOS Anticipated Stay Length: 2 or more midnights - Issues Hospital Issues and Management Plan: heparin for DVT prophylaxis - DVT/VTE - Prophylaxis VTE/DVT Device ordered at admit?: Yes
[2016-12-23] MEDS: ASCORBIC ACID CHEW 500 MG TABLET PO SCH (14:24)
[2016-12-23] MEDS: CALCIUM CARBONATE CHEW 500 MG TABLET PO SCH ×2 (14:24→21:19)
[2016-12-23] MEDS: LISINOPRIL 5 MG TABLET PO SCH (14:25)
[2016-12-23] MEDS: MULTIVITAMIN TABLET PO SCH (14:25)
[2016-12-23] MEDS: SPIRONOLACTONE 25 MG TABLET PO SCH ×2 (14:25→21:19)
--- NOTE | 2016-12-23 16:10 | XRAY Report ---
FRONTAL CHEST: 12/23/2016 CLINICAL INDICATION: Cough. COMPARISON: 11/01/2016. FINDINGS: Frontal view of the chest demonstrates a normal cardiac silhouette. There is a new left ba silar infiltrate and likely small left effusion. No pneumothorax. The right lung is clear. IMPRESSION: NEW LEFT BASILAR INFILTRATE AND LIKELY SMALL EFFUSION. JOB #: [id number] EXT JOB #:[id number]
[2016-12-23] MEDS: FERROUS SULFATE 325 MG TABLET PO SCH (16:13)
[2016-12-23] MEDS: ONDANSETRON 4 MG/2 ML VIAL IVP PRN (16:20)
[2016-12-23] MEDS: ACETAMINOPHEN 325 MG TABLET PO PRN (16:20)
[2016-12-23] MEDS: traMADol 50 MG TABLET PO SCH (21:19)
[2016-12-24] MEDS: SODIUM CHLORIDE 0.9% 1,000 ML IV SCH ×3 (02:02→21:00)
[2016-12-24] MEDS: traMADol 50 MG TABLET PO SCH ×3 (02:02→14:51)
[2016-12-24] MEDS: ACETAMINOPHEN 325 MG TABLET PO PRN (05:04)
[2016-12-24] MEDS: LIDOCAINE OINTMENT 5% 35.44 GM TUBE TOP SCH ×4 (05:12→20:58)
[2016-12-24] MEDS: GABAPENTIN 100 MG CAPSULE PO SCH ×3 (06:57→21:00)
[2016-12-24] MEDS: SODIUM CHLORIDE FLUSH 0.9% 10 ML SYRINGE IVP SCH ×3 (07:07→21:00)
[2016-12-24] MEDS: INSULIN ASPART 300 UNIT/3 ML PEN SUBQ SCH ×4 (07:42→20:58)
[2016-12-24] MEDS: FAMOTIDINE 20 MG TABLET PO SCH (10:31)
[2016-12-24] MEDS: MULTIVITAMIN TABLET PO SCH (10:31)
[2016-12-24] MEDS: METOPROLOL TARTRATE 25 MG TABLET PO SCH ×2 (10:32→20:58)
[2016-12-24] MEDS: SPIRONOLACTONE 25 MG TABLET PO SCH ×2 (10:32→20:59)
[2016-12-24] MEDS: CALCIUM CARBONATE CHEW 500 MG TABLET PO SCH ×2 (10:32→20:58)
[2016-12-24] MEDS: FERROUS SULFATE 325 MG TABLET PO SCH ×2 (10:33→17:10)
[2016-12-24] MEDS: POLYETHYLENE GLYCOL 3350 17 GM PACKET PO SCH (10:34)
[2016-12-24 10:36] LABS: BASOPHILS # (AUTO) 0.1 10^3/uL (0.0-0.1); BASOPHILS % (AUTO) 0.6 %; EOSINOPHILS % (AUTO) 0.2 %; HCT - HEMATOCRIT 52.1 % (37.0-47.0); HGB - HEMOGLOBIN 16.2 g/dL (12.0-16.0); LYMPHOCYTES # (AUTO) 1.5 10^3/uL (1.5-3.5); LYMPHOCYTES % (AUTO) 14.7 %; MEAN CORPUSCULAR HEMOGLOBIN 29.2 pg (27.0-31.0); MEAN CORPUSCULAR VOLUME 94.1 fL (81.0-99.0); MONOCYTES # (AUTO) 0.7 10^3/uL (0.0-1.0); MONOCYTES % (AUTO) 7.3 %; NEUTROPHILS % (AUTO) 77.2 %; NUCLEATED RED BLOOD CELLS AUTO 0.8 /100WBC; RED BLOOD COUNT 5.54 10^6/uL (4.20-5.40); RED CELL DISTRIBUTION WIDTH 18.1 % (12.0-15.0); UNCORRECTED WHITE BLOOD COUNT 10.3 x10^3/uL; WHITE BLOOD COUNT 10.3 x10^3/uL (4.8-10.8)
[2016-12-24] MEDS: DULoxetine 20 MG CAPSULE PO SCH (10:37)
[2016-12-24] MEDS: HEPARIN 5,000 UNIT/ML VIAL SUBQ SCH ×2 (10:38→20:56)
[2016-12-24] MEDS: ASCORBIC ACID CHEW 500 MG TABLET PO SCH (10:38)
[2016-12-24] MEDS: LISINOPRIL 5 MG TABLET PO SCH (10:38)
[2016-12-24 10:46] LABS: INR 1.3 (0.8-1.2); PT - PROTHROMBIN TIME 14.8 secs (9.9-12.6)
[2016-12-24 10:50] LABS: BILIRUBIN,TOTAL 1.1 mg/dL (0.2-1.0)
[2016-12-24 10:52] LABS: ALBUMIN/GLOBULIN RATIO 0.7 (1.0-2.2); CALCIUM 7.8 mg/dL (8.5-10.3); MAGNESIUM 1.8 mg/dL (1.7-2.8); POTASSIUM 4.6 mmol/L (3.5-5.0); TOTAL PROTEIN 6.4 g/dL (6.7-8.2)
[2016-12-24] MEDS ORDERED: SODIUM CHLORIDE 1 GM TABLET PO SCH (11:00)
[2016-12-24] MEDS: ONDANSETRON ODT 4 MG TABLET TL PRN (12:03)
[2016-12-24] MEDS: cefTRIAXone 1 GM in SODIUM CHLORIDE 0.9% MINIBAG 100 ML IV SCH (12:51)
[2016-12-24] MEDS: AZITHROMYCIN INJ 500 MG in SODIUM CHLORIDE 0.9% 250 ML IV SCH (14:06)
[2016-12-24] MEDS ORDERED: LIDOCAINE-MPF 1% 5 ML VIAL ONE (15:00)
[2016-12-24] MEDS ORDERED: SODIUM CHLORIDE 0.9% 500 ML IV ONE (16:55)
--- NOTE | 2016-12-24 17:14 | PROVIDER PROGRESS NOTE ---
Subjective - Subjective Pt reports feeling: No change Subjective: pt report she has some abdominal pain, want to sleep. Pt denies chest pain, short of breathing, headache. Pt is alert, oriented plus 3 Objective - Vital Signs/Intake & Output Vital Signs: Vital Signs x48h Temp Pulse Resp BP BP Pulse Ox 12/24/16 17:08 36.4 C L 82/63 L 12/24/16 16:55 34.8 C L 80 16 89/67 L 97 12/24/16 16:40 76/60 L 12/24/16 16:20 83 16 98 12/24/16 14:00 36.3 C L 82 16 139/95 H 96 Intake & Output: Intake & Output 12/21/16 12/22/16 12/23/16 12/24/16 23:59 23:59 23:59 23:59 Intake Total 4103 674 Output Total 300 Balance -300 4103 674 - Objective General Appearance: positive: No acute distress, Alert. negative: Lethargic Eyes Bilateral: positive: Normal inspection, PERRL. negative: No lid inflammation, Conjunctivae nml ENT: positive: ENT inspection nml, Pharynx nml, No signs of dehydration. negative: Purulent nasal drainage, Pharyngeal erythema Neck: positive: Nml inspection, Thyroid nml, No JVD, Trachea midline. negative : Thyromegaly, Lymphadenopathy (R), Lymphadenopathy (L), Stiff neck, Carotid bruit, Swelling/bruising, Tracheal deviation Respiratory: positive: Chest non-tender, No respiratory distress, Rhonchi Cardiovascular: positive: Regular rate & rhythm, No murmur, No gallop. negative : Tachycardia, Bradycardia, Systolic murmur, Diastolic murmur, Gallop/S4 Peripheral Pulses: 2+ Radial (R), 2+ Radial (L), 2+ Dorsalis pedis (R), 2+ Dorsalis pedis (L) Abdomen: positive: Non-tender, Nml bowel sounds, No distention. negative: Tenderness, Guarding, Rebound Back: positive: Nml inspection. negative: CVA tenderness (R), CVA tenderness (L ) Skin: positive: Warm, Dry, Skin rash, Other (dried burst at left flank and lower back area). negative: Diaphoresis Extremities: positive: Non-tender, Other (bilateral amputation). negative: Calf tenderness, Brie's sign/cords - Lab Results Fish Bones: 12/25/16 06:35 12/25/16 05:25 Other Labs: Lab Results x24hrs 12/24/16 12/24/16 12/24/16 Range/Units 16:47 12:02 10:06 WBC (4.8-10.8) x10^3/uL RBC (4.20-5.40) 10^6/uL Hgb (12.0-16.0) g/dL Hct (37.0-47.0) % MCV (81.0-99.0) fL MCH (27.0-31.0) pg MCHC (32.0-36.0) g/dL RDW (12.0-15.0) % Plt Count (130-450) 10^3/uL MPV (7.9-10.8) fL Neut # (1.5-6.6) 10^3/uL Lymph # (1.5-3.5) 10^3/uL Hardy # (0.0-1.0) 10^3/uL Eos # (0.0-0.7) 10^3/uL Baso # (0.0-0.1) 10^3/uL Absolute Nucleated RBC x10^3/uL Nucleated RBCs /100WBC PT 14.8 H (9.9-12.6) secs INR 1.3 H (0.8-1.2) Sodium (135-145) mmol/L Potassium (3.5-5.0) mmol/L Chloride (101-111) mmol/L Carbon Dioxide (21-32) mmol/L Anion Gap (6-13) BUN (6-20) mg/dL Creatinine (0.4-1.0) mg/dL Estimated GFR (MDRD) (>89) Glucose (70-100) mg/dL POC Whole Bld Glucose 130 H 89 (70 - 100) mg/dL Calcium (8.5-10.3) mg/dL Magnesium (1.7-2.8) mg/dL Total Bilirubin (0.2-1.0) mg/dL AST (10-42) IU/L ALT (10-60) IU/L Alkaline Phosphatase (42-121) IU/L Total Protein (6.7-8.2) g/dL Albumin (3.2-5.5) g/dL Globulin (2.1-4.2) g/dL Albumin/Globulin Ratio (1.0-2.2) 12/24/16 12/24/16 12/24/16 Range/Units 10:06 10:06 07:36 WBC 10.3 (4.8-10.8) x10^3/uL RBC 5.54 H (4.20-5.40) 10^6/uL Hgb 16.2 H (12.0-16.0) g/dL Hct 52.1 H (37.0-47.0) % MCV 94.1 (81.0-99.0) fL MCH 29.2 (27.0-31.0) pg MCHC 31.0 L (32.0-36.0) g/dL RDW 18.1 H (12.0-15.0) % Plt Count 125 L (130-450) 10^3/uL MPV 9.0 (7.9-10.8) fL Neut # 8.0 H (1.5-6.6) 10^3/uL Lymph # 1.5 (1.5-3.5) 10^3/uL Hardy # 0.7 (0.0-1.0) 10^3/uL Eos # 0.0 (0.0-0.7) 10^3/uL Baso # 0.1 (0.0-0.1) 10^3/uL Absolute Nucleated RBC 0.08 x10^3/uL Nucleated RBCs 0.8 /100WBC PT (9.9-12.6) secs INR (0.8-1.2) Sodium 130 L (135-145) mmol/L Potassium 4.6 (3.5-5.0) mmol/L Chloride 95 L (101-111) mmol/L Carbon Dioxide 26 (21-32) mmol/L Anion Gap 9.0 (6-13) BUN 54 H (6-20) mg/dL Creatinine 1.0 (0.4-1.0) mg/dL Estimated GFR (MDRD) 57 L (>89) Glucose 83 (70-100) mg/dL POC Whole Bld Glucose 98 (70 - 100) mg/dL Calcium 7.8 L (8.5-10.3) mg/dL Magnesium 1.8 (1.7-2.8) mg/dL Total Bilirubin 1.1 H (0.2-1.0) mg/dL AST 38 (10-42) IU/L ALT 49 (10-60) IU/L Alkaline Phosphatase 144 H (42-121) IU/L Total Protein 6.4 L (6.7-8.2) g/dL Albumin 2.7 L (3.2-5.5) g/dL Globulin 3.7 (2.1-4.2) g/dL Albumin/Globulin Ratio 0.7 L (1.0-2.2) 12/23/16 Range/Units 20:56 WBC (4.8-10.8) x10^3/uL RBC (4.20-5.40) 10^6/uL Hgb (12.0-16.0) g/dL Hct (37.0-47.0) % MCV (81.0-99.0) fL MCH (27.0-31.0) pg MCHC (32.0-36.0) g/dL RDW (12.0-15.0) % Plt Count (130-450) 10^3/uL MPV (7.9-10.8) fL Neut # (1.5-6.6) 10^3/uL Lymph # (1.5-3.5) 10^3/uL Hardy # (0.0-1.0) 10^3/uL Eos # (0.0-0.7) 10^3/uL Baso # (0.0-0.1) 10^3/uL Absolute Nucleated RBC x10^3/uL Nucleated RBCs /100WBC PT (9.9-12.6) secs INR (0.8-1.2) Sodium (135-145) mmol/L Potassium (3.5-5.0) mmol/L Chloride (101-111) mmol/L Carbon Dioxide (21-32) mmol/L Anion Gap (6-13) BUN (6-20) mg/dL Creatinine (0.4-1.0) mg/dL Estimated GFR (MDRD) (>89) Glucose (70-100) mg/dL POC Whole Bld Glucose 165 H (70 - 100) mg/dL Calcium (8.5-10.3) mg/dL Magnesium (1.7-2.8) mg/dL Total Bilirubin (0.2-1.0) mg/dL AST (10-42) IU/L ALT (10-60) IU/L Alkaline Phosphatase (42-121) IU/L Total Protein (6.7-8.2) g/dL Albumin (3.2-5.5) g/dL Globulin (2.1-4.2) g/dL Albumin/Globulin Ratio (1.0-2.2) Assessment/Plan - Problem List (1) Generalized weakness Impression: continue PT treatment, encourage pt active as tolerate (2) Hyponatremia Impression: 1 gram NaCl ordered recheck with CMP (4) Dysuria Impression: pt feels better, UA negative UTI, continue monitor (5) DM2 (diabetes mellitus, type 2) Impression: slide scale, adjust insulin level as needed (10) Hypotension Impression: BP down to 85, pt state she feels dizziness, denies chest pain, headache. complains of abdominal pain 500 NS bolus recheck BP every 15 min, and vital every [address] of abdomen hold BP meds (11) Hypothermia Impression: order warming up recheck T, vital sign Q4H
[2016-12-24] MEDS: WARFARIN 5 MG TABLET PO SCH (18:55)
--- NOTE | 2016-12-24 20:48 | CT Preliminary Report ---
Exam: CT Abdomen/Pelvis W/O IMPRESSION: 1. Moderate left pleural effusion, increased. Small right pleural effusion, decreased. Small loculated pleural effusion at the left major fissure. Moderate left lower lobe airspace disease, new, could represent pneumonia. Mild airspace disease post eriorly in the right lower lobe, new. 2. Calcified gallstones. Mild common duct dilatation measuring 9 mm that tapers distally, appears unc hanged. 3. No evidence for bowel obstruction. A few sigmoid diverticula. Mild diffuse mesenteric stranding. M ild left lateral recess ascites. Increased presacral fluid/edema, could be related to increased fluid overload. 4. Severe diffuse anasarca. 5. Bilateral adrenal gland thickening or masses, increased compared to the prior with adjacent strand ing. This can be seen with adrenal hyperplasia. Adrenal mass is not excluded. [facility] SITE ID: [id number]
--- NOTE | 2016-12-24 20:51 | CT Report ---
EXAM: CT ABDOMEN AND PELVIS EXAM DATE: 12/24/2016 07:43 PM. CLINICAL HISTORY: Abdominal pain. COMPARISONS: CT abdomen pelvis 04/21/2016. Abdomen ultrasound 11/01/2016. TECHNIQUE: Routine helical CT imaging was performed through the abdomen and pelvis. IV contrast: No. Enteric contrast: Yes. Reconstructions: Coronal and sagittal. In accordance with CT protocol optimization, one or more of the following dose reduction techniques w ere utilized for this exam: automated exposure control, adjustment of mA and/or KV based on patient s ize, or use of iterative reconstructive technique. FINDINGS: Lung Bases: Moderate left pleural effusion, increased. Small right pleural effusion, decreased. Small loculated pleural effusion at the left major fissure. Moderate left lower lobe airspace disease, new. Mild airspace disease posteriorly in the right lower lobe, new. Prominent heart size. Small hiatal hernia. Liver: Normal. No masses. Gallbladder/Bile Ducts: Calcified gallstones. Mild common duct dilatation measuring 9 mm that tapers distally, appears unchanged. Spleen: No splenomegaly. Small splenic Calcification, unchanged. Pancreas: Unremarkable. Adrenals: Bilateral adrenal gland thickening or masses, increased compared to the prior with adjacent stranding. This can be seen with adrenal hyperplasia. Adrenal mass is not excluded. Kidneys: No renal calculi. Mild atrophy of the right kidney. Nonspecific low-density mass posterior m id pole right kidney measuring 7 mm. No hydronephrosis. Peritoneal Cavity/Bowel: No evidence for bowel obstruction. A few sigmoid diverticula. Mild diffuse m esenteric stranding. Mild left lateral recess ascites. Increased presacral fluid/edema, could be rela elver to increased fluid overload. No free air. Severe diffuse anasarca Pelvic Organs: Normal. The bladder and visualized pelvic organs are within normal limits. Vasculature: No abdominal aortic aneurysm Bones: No acute bone findings seen. IMPRESSION: 1. Moderate left pleural effusion, increased. Small right pleural effusion, decreased. Small loculated pleural effusion at the left major fissure. Moderate left lower lobe airspace disease, new, could represent pneumonia. Mild airspace disease post eriorly in the right lower lobe, new. 2. Calcified gallstones. Mild common duct dilatation measuring 9 mm that tapers distally, appears unc hanged. 3. No evidence for bowel obstruction. A few sigmoid diverticula. Mild diffuse mesenteric stranding. M ild left lateral recess ascites. Increased presacral fluid/edema, could be related to increased fluid overload. 4. Severe diffuse anasarca. 5. Bilateral adrenal gland thickening or masses, increased compared to the prior with adjacent strand ing. This can be seen with adrenal hyperplasia. Adrenal mass is not excluded. [facility] Referring Provider Line: [phone] SITE ID: [id number]
[2016-12-25] MEDS: GABAPENTIN 100 MG CAPSULE PO SCH ×3 (05:44→22:20)
[2016-12-25] MEDS: SODIUM CHLORIDE FLUSH 0.9% 10 ML SYRINGE IVP SCH ×3 (05:45→22:25)
[2016-12-25 05:50] LABS: INR 1.5 (0.8-1.2); PT - PROTHROMBIN TIME 16.5 secs (9.9-12.6)
[2016-12-25] MEDS: SODIUM CHLORIDE 0.9% 1,000 ML IV SCH (05:51)
[2016-12-25 05:52] LABS: ALBUMIN/GLOBULIN RATIO 0.6 (1.0-2.2); CALCIUM 7.6 mg/dL (8.5-10.3); POTASSIUM 4.4 mmol/L (3.5-5.0); TOTAL PROTEIN 5.6 g/dL (6.7-8.2)
[2016-12-25 06:48] LABS: BASOPHILS % (AUTO) 0.3 %; EOSINOPHILS % (AUTO) 0.1 %; HCT - HEMATOCRIT 44.8 % (37.0-47.0); LYMPHOCYTES # (AUTO) 1.1 10^3/uL (1.5-3.5); LYMPHOCYTES % (AUTO) 7.8 %; MEAN CORPUSCULAR HGB CONC 31.3 g/dL (32.0-36.0); MEAN CORPUSCULAR VOLUME 92.7 fL (81.0-99.0); MEAN PLATELET VOLUME 8.7 fL (7.9-10.8); MONOCYTES # (AUTO) 1.1 10^3/uL (0.0-1.0); MONOCYTES % (AUTO) 7.7 %; NEUTROPHILS # (AUTO) 12.4 10^3/uL (1.5-6.6); NEUTROPHILS % (AUTO) 84.1 %; NUCLEATED RED BLOOD CELLS AUTO 0.5 /100WBC; RED BLOOD COUNT 4.83 10^6/uL (4.20-5.40); RED CELL DISTRIBUTION WIDTH 18.1 % (12.0-15.0); UNCORRECTED WHITE BLOOD COUNT 14.7 x10^3/uL; WHITE BLOOD COUNT 14.7 x10^3/uL (4.8-10.8)
[2016-12-25] MEDS: INSULIN ASPART 300 UNIT/3 ML PEN SUBQ SCH ×5 (08:17→22:44)
[2016-12-25] MEDS: HEPARIN 5,000 UNIT/ML VIAL SUBQ SCH ×2 (08:18→22:37)
[2016-12-25] MEDS: SODIUM CHLORIDE 1 GM TABLET PO SCH (08:19)
[2016-12-25] MEDS: ASCORBIC ACID CHEW 500 MG TABLET PO SCH (08:19)
[2016-12-25] MEDS: CALCIUM CARBONATE CHEW 500 MG TABLET PO SCH ×2 (08:19→22:24)
[2016-12-25] MEDS: METOPROLOL TARTRATE 25 MG TABLET PO SCH ×2 (08:20→22:35)
[2016-12-25] MEDS: DULoxetine 20 MG CAPSULE PO SCH (08:20)
[2016-12-25] MEDS: MULTIVITAMIN TABLET PO SCH (08:20)
[2016-12-25] MEDS: FAMOTIDINE 20 MG TABLET PO SCH (08:20)
[2016-12-25] MEDS: POLYETHYLENE GLYCOL 3350 17 GM PACKET PO SCH (08:20)
[2016-12-25] MEDS: SPIRONOLACTONE 25 MG TABLET PO SCH ×2 (08:20→22:20)
[2016-12-25] MEDS: LISINOPRIL 5 MG TABLET PO SCH (08:20)
[2016-12-25] MEDS: LIDOCAINE OINTMENT 5% 35.44 GM TUBE TOP SCH ×4 (08:21→22:39)
[2016-12-25] MEDS: FERROUS SULFATE 325 MG TABLET PO SCH ×2 (08:21→17:27)
[2016-12-25] MEDS: cefTRIAXone 1 GM in SODIUM CHLORIDE 0.9% MINIBAG 100 ML IV SCH (08:29)
[2016-12-25] MEDS ORDERED: cefTRIAXone 1 GM VIAL ONE (08:31)
[2016-12-25] MEDS: ACETAMINOPHEN 325 MG TABLET PO PRN (09:11)
[2016-12-25] MEDS ORDERED: traMADol 50 MG TABLET PO ONE (09:26)
[2016-12-25] MEDS: traMADol 50 MG TABLET PO PRN (09:29)
[2016-12-25] MEDS ORDERED: COSYNTROPIN 0.25 MG VIAL IM ONE (11:26)
--- NOTE | 2016-12-25 12:49 | ED Physician Documentation ---
ED Addendum - Addendum Addendum: 12/25/16 12:49 I was called by nurse practitioner waiting to place a peripheral IV in this woman who was difficult for IV access. I personally placed a 20-gauge IV in the left external jugular vein after ChloraPrep which javi and flushed well.
[2016-12-25] MEDS ORDERED: DOCUSATE SODIUM 250 MG CAPSULE PO ONE (13:40)
[2016-12-25] MEDS: AZITHROMYCIN INJ 500 MG in SODIUM CHLORIDE 0.9% 250 ML IV SCH (13:47)
[2016-12-25] MEDS: WARFARIN 5 MG TABLET PO SCH (13:48)
[2016-12-25] MEDS: DOCUSATE SODIUM 250 MG CAPSULE PO SCH (13:48)
[2016-12-25] MEDS ORDERED: SODIUM CHLORIDE 0.9% 500 ML IV ONE ×2 (16:19→17:33)
--- NOTE | 2016-12-25 16:59 | PROVIDER PROGRESS NOTE ---
Subjective - Subjective Pt reports feeling: Improved Subjective: pt feels better, she eat well, more energetic. Objective - Vital Signs/Intake & Output Vital Signs: Vital Signs x48h Temp Pulse Resp BP Pulse Ox 12/25/16 16:00 36.3 C L 80 15 82/61 L 94 12/25/16 14:57 36.6 C 81 14 75/60 L 98 12/25/16 13:48 36.6 C 74 16 102/68 97 12/25/16 13:00 36.5 C 74 14 90/57 L 98 12/25/16 11:40 36.8 C 73 16 103/73 97 12/25/16 11:00 36.8 C 73 14 102/76 86 L 12/25/16 09:48 36.6 C 73 16 114/76 94 12/25/16 09:00 36.5 C 83 14 122/77 85 L Intake & Output: Intake & Output 12/22/16 12/23/16 12/24/16 12/25/16 23:59 23:59 23:59 23:59 Intake Total 4103 1854 194 Output Total 300 Balance -300 4103 1854 1945 - Objective General Appearance: positive: No acute distress, Alert. negative: Lethargic Eyes Bilateral: positive: Normal inspection, PERRL. negative: No lid inflammation, Conjunctivae nml ENT: positive: ENT inspection nml, Pharynx nml, No signs of dehydration. negative: Purulent nasal drainage, Pharyngeal erythema, Dry mucous membranes Neck: positive: Nml inspection, Thyroid nml, Trachea midline. negative: Lymphadenopathy (R), Lymphadenopathy (L), Stiff neck, Carotid bruit, Tracheal deviation Respiratory: positive: Chest non-tender, No respiratory distress, Rhonchi Cardiovascular: positive: Regular rate & rhythm, No murmur, No gallop. negative : Systolic murmur, Diastolic murmur, Gallop/S4 Peripheral Pulses: 2+ Radial (R), 2+ Radial (L) Abdomen: positive: Non-tender, Nml bowel sounds, No distention. negative: Tenderness, Guarding, Rebound Back: positive: Nml inspection. negative: CVA tenderness (R), CVA tenderness (L ) Skin: positive: Color nml, Warm, Dry. negative: Diaphoresis, Skin rash Extremities: positive: Non-tender, Other (amputated bilateral lower extremities) . negative: Calf tenderness, Brie's sign/cords Neurologic/Psychiatric: positive: Oriented x3, Motor nml, Sensation nml, Weakness. negative: Disoriented to person, Disoriented to place, Disoriented to time, Sensory loss, Facial droop, Slurred/abnml speech - Lab Results Fish Bones: 12/25/16 06:35 12/25/16 05:25 Other Labs: Lab Results x24hrs 12/25/16 12/25/16 12/25/16 Range/Units 16:24 11:08 08:52 WBC (4.8-10.8) x10^3/uL RBC (4.20-5.40) 10^6/uL Hgb (12.0-16.0) g/dL Hct (37.0-47.0) % MCV (81.0-99.0) fL MCH (27.0-31.0) pg MCHC (32.0-36.0) g/dL RDW (12.0-15.0) % Plt Count (130-450) 10^3/uL MPV (7.9-10.8) fL Neut # (1.5-6.6) 10^3/uL Lymph # (1.5-3.5) 10^3/uL [place] # (0.0-1.0) 10^3/uL Eos # (0.0-0.7) 10^3/uL Baso # (0.0-0.1) 10^3/uL Absolute Nucleated RBC x10^3/uL Nucleated RBCs /100WBC PT (9.9-12.6) secs INR (0.8-1.2) Sodium (135-145) mmol/L Potassium (3.5-5.0) mmol/L Chloride (101-111) mmol/L Carbon Dioxide (21-32) mmol/L Anion Gap (6-13) BUN (6-20) mg/dL Creatinine (0.4-1.0) mg/dL Estimated GFR (MDRD) (>89) Glucose (70-100) mg/dL POC Whole Bld Glucose 223 H 240 H (70 - 100) mg/dL Calcium (8.5-10.3) mg/dL Total Bilirubin (0.2-1.0) mg/dL AST (10-42) IU/L ALT (10-60) IU/L Alkaline Phosphatase (42-121) IU/L Total Protein (6.7-8.2) g/dL Albumin (3.2-5.5) g/dL Globulin (2.1-4.2) g/dL Albumin/Globulin Ratio (1.0-2.2) Cortisol AM Sample 26.2 ug/dL 12/25/16 12/25/16 12/25/16 Range/Units 07:33 06:35 05:25 WBC 14.7 H (4.8-10.8) x10^3/uL RBC 4.83 (4.20-5.40) 10^6/uL Hgb 14.0 (12.0-16.0) g/dL Hct 44.8 (37.0-47.0) % MCV 92.7 (81.0-99.0) fL MCH 29.0 (27.0-31.0) pg MCHC 31.3 L (32.0-36.0) g/dL RDW 18.1 H (12.0-15.0) % Plt Count 148 (130-450) 10^3/uL MPV 8.7 (7.9-10.8) fL Neut # 12.4 H (1.5-6.6) 10^3/uL Lymph # 1.1 L (1.5-3.5) 10^3/uL [place] # 1.1 H (0.0-1.0) 10^3/uL Eos # 0.0 (0.0-0.7) 10^3/uL Baso # 0.0 (0.0-0.1) 10^3/uL Absolute Nucleated RBC 0.08 x10^3/uL Nucleated RBCs 0.5 /100WBC PT 16.5 H (9.9-12.6) secs INR 1.5 H (0.8-1.2) Sodium (135-145) mmol/L Potassium (3.5-5.0) mmol/L Chloride (101-111) mmol/L Carbon Dioxide (21-32) mmol/L Anion Gap (6-13) BUN (6-20) mg/dL Creatinine (0.4-1.0) mg/dL Estimated GFR (MDRD) (>89) Glucose (70-100) mg/dL POC Whole Bld Glucose 206 H (70 - 100) mg/dL Calcium (8.5-10.3) mg/dL Total Bilirubin (0.2-1.0) mg/dL AST (10-42) IU/L ALT (10-60) IU/L Alkaline Phosphatase (42-121) IU/L Total Protein (6.7-8.2) g/dL Albumin (3.2-5.5) g/dL Globulin (2.1-4.2) g/dL Albumin/Globulin Ratio (1.0-2.2) Cortisol AM Sample ug/dL 12/25/16 12/24/16 12/24/16 Range/Units 05:25 20:55 16:47 WBC (4.8-10.8) x10^3/uL RBC (4.20-5.40) 10^6/uL Hgb (12.0-16.0) g/dL Hct (37.0-47.0) % MCV (81.0-99.0) fL MCH (27.0-31.0) pg MCHC (32.0-36.0) g/dL RDW (12.0-15.0) % Plt Count (130-450) 10^3/uL MPV (7.9-10.8) fL Neut # (1.5-6.6) 10^3/uL Lymph # (1.5-3.5) 10^3/uL [place] # (0.0-1.0) 10^3/uL Eos # (0.0-0.7) 10^3/uL Baso # (0.0-0.1) 10^3/uL Absolute Nucleated RBC x10^3/uL Nucleated RBCs /100WBC PT (9.9-12.6) secs INR (0.8-1.2) Sodium 131 L (135-145) mmol/L Potassium 4.4 (3.5-5.0) mmol/L Chloride 99 L (101-111) mmol/L Carbon Dioxide 22 (21-32) mmol/L Anion Gap 10.0 (6-13) BUN 51 H (6-20) mg/dL Creatinine 1.0 (0.4-1.0) mg/dL Estimated GFR (MDRD) 57 L (>89) Glucose 119 H (70-100) mg/dL POC Whole Bld Glucose 116 H 130 H (70 - 100) mg/dL Calcium 7.6 L (8.5-10.3) mg/dL Total Bilirubin 1.0 (0.2-1.0) mg/dL AST 21 (10-42) IU/L ALT 36 (10-60) IU/L Alkaline Phosphatase 111 (42-121) IU/L Total Protein 5.6 L (6.7-8.2) g/dL Albumin 2.2 L (3.2-5.5) g/dL Globulin 3.4 (2.1-4.2) g/dL Albumin/Globulin Ratio 0.6 L (1.0-2.2) Cortisol AM Sample ug/dL Assessment/Plan - Problem List (1) Generalized weakness Impression: continue PT treatment and evaluation (2) Hyponatremia Impression: improved, continue 1 gram NaCl (3) Hyperkalemia Impression: resolved, continue monitor (4) Dysuria Impression: improved, UA negative for UTI (5) DM2 (diabetes mellitus, type 2) Impression: adjust insulin, slide scale (6) Left flank pain Impression: better improved per pt, continue to treat (10) Hypotension Impression: pt is alert, oriented plus 3 happen again, order EKG, troponin, CT of head, pt complain headache NS 500 bolus recheck vital order cortisol test order TSH test if hemodynamically unstable, then transfer to ICU ECHO (11) Hypothermia Impression: happen again, order warming up order cortisol and TSH test will transfer to ICU if unstable
[2016-12-25] MEDS ORDERED: SODIUM CHLORIDE 0.9% 500 ML IV SCH (17:54)
--- NOTE | 2016-12-25 18:01 | CT Preliminary Report ---
Exam: CT Head W/O IMPRESSION: 1. Chronic appearing posterior right temporal lobe infarct is new compared to 11/06/2015. 2. No localizing parenchymal edema or hemorrhage. 3. Stable old small right superior parietal lobe infarct unchanged. [facility] SITE ID: [id number]
--- NOTE | 2016-12-25 18:04 | CT Report ---
EXAM: CT HEAD EXAM DATE: 12/25/2016 05:20 PM. CLINICAL HISTORY: Headache, dizziness. COMPARISON: 11/06/2015. TECHNIQUE: Multiaxial CT images were obtained from the foramen magnum to the vertex. IV contrast: Non e. Reformats: Coronal. In accordance with CT protocol optimization, one or more of the following dose reduction techniques w ere utilized for this exam: automated exposure control, adjustment of mA and/or KV based on patient s ize, or use of iterative reconstructive technique. FINDINGS: Parenchyma: There is a small area of cortical encephalomalacia within the superior posterior right pa rietal lobe. There is a moderate-sized area of encephalomalacia in the posterior right temporal lobe which is new since previous. Negative for acute hemorrhage. No midline shift or mass effect. Mild per iventricular white matter hypodensity. Extraaxial Spaces: There is no abnormal subdural or epidural fluid collection. Ventricles: Normal in size and position. Sinuses: Imaged paranasal sinuses, orbits, and mastoids show no significant abnormality. Bones: No fracture or bony destruction. Other: None. IMPRESSION: 1. Chronic appearing posterior right temporal lobe infarct is new compared to 11/06/2015. 2. No localizing parenchymal edema or hemorrhage. 3. Stable old small right superior parietal lobe infarct unchanged. [facility] Referring Provider Line: [phone] SITE ID: [id number]
[2016-12-25] MEDS ORDERED: SODIUM CHLORIDE 0.9% 500 ML IV PRN (20:18)
[2016-12-25] MEDS ORDERED: SODIUM CHLORIDE FLUSH 0.9% 10 ML SYRINGE IVP PRN (20:18)
[2016-12-25] MEDS ORDERED: SODIUM CHLORIDE FLUSH 0.9% 10 ML SYRINGE IVP ONE (20:39)
--- NOTE | 2016-12-26 00:36 | CONSULTATION NOTE ---
DATE OF CONSULTATION: 12/25/2016 00:00:00 REQUESTING PROVIDER: ERLIN Chase. REASON FOR CONSULTATION: Bilateral adrenal hyperplasia with possible bilateral adrenal masses. HISTORY OF PRESENT ILLNESS: This is a 61-year-old female with past medical history of COPD, hypertension, diabetes, seizure, urinary incontinence, diverticulitis, coronary artery disease with a previous myocardial infarct which was complicated by ventricular thrombus with subsequent embolic events resulting in bilateral lower extremity amputation. She presented to the emergency department yesterday for complaints of not being able to get out of bed for an entire month with nausea and vomiting and generalized weakness. She also states that she had not eaten anything for an entire month and does not recall having any bowel movements during that time. She also complains of left abdominal and left back pain, and she is unsure of the length of time that this has been present. She underwent a CT scan upon evaluation in the emergency department, which demonstrated "a loculated pleural effusion in the left fissure, a possible left- sided pneumonia, mild diffuse mesenteric stranding with a small amount of ascites. There is diffuse anasarca, and there is bilateral adrenal gland thickening or masses increased when compared to her prior CT scan with adjacent stranding. Adrenal mass is not excluded. This can be seen with adrenal hyperplasia". For this reason, a surgical consultation was obtained. Upon questioning the patient, she does state that she has been more depressed lately and fatigued. She does not note any change in her blood pressure at home. PAST MEDICAL HISTORY Includes: 1. Diabetes. 2. Coronary artery disease status post DC. 3. History of deep venous thrombosis. 4. Asthma. 5. COPD. 6. Emphysema. 7. History of CVA. 8. Hiatal hernia, diverticulitis in the past. 9. Anxiety and depression. 10. Gout. PAST SURGICAL HISTORY 1. Appendectomy. 2. Unknown type of bowel surgery. 3. Bilateral lower extremity amputations. 4. Hysterectomy. HOME MEDICATIONS 1. Coumadin 5 mg daily. 2. Metoprolol 25 mg daily. 3. Insulin 15 units subcutaneous twice daily. 4. Lisinopril 5 mg daily. 5. Spironolactone 25 mg twice daily. 6. Tramadol 50 mg q.6 hours. 7. Ascorbic acid 500 mg daily. 8. Cymbalta 40 mg p.o. daily. 9. Ferrous sulfate 225 mg twice daily. 10. Multivitamin. ALLERGIES TO MEDICATIONS 1. LATEX. 2. LEVOFLOXACIN. 3. LEVOPROPOXYPHENE. 4. PENICILLINS. PHYSICAL EXAMINATION VITAL SIGNS: Temperature is 36.3, blood pressure 85/58, respiratory rate is 15 , heart rate is 70, O2 sat is 94% on room air. GENERAL: The patient is sitting in bed comfortably. She is awake, alert, oriented x3, in no acute distress. She has central obesity. CARDIOVASCULAR: Regular rate and rhythm. CHEST: Clear to auscultation bilaterally with diminished breath sounds bilaterally. ABDOMEN: Soft, slightly distended with mild tenderness to palpation in the left lateral abdomen, with no guarding and no rigidity and no rebound tenderness. LABORATORY VALUES White blood cell count 14.7, hemoglobin 14.9, hematocrit 44.8, platelets 148. INR is 1.5. Sodium 131, potassium 4.4, chloride 99, bicarb 22, BUN 51, creatinine 1, glucose 119, UA has many bacteria but many squamous cells and is considered to be a contaminant. ASSESSMENT: This is a 61-year-old female complaining of abdominal pain with a mild leukocytosis, and CT scan findings which demonstrate diffuse mesenteric stranding and bilateral adrenal thickening, possibly suggesting bilateral adrenal hyperplasia versus bilateral adrenal masses. PLAN: It is unlikely that the adrenal finding is contributing to either her abdominal pain or her leukocytosis. I am recommending workup for bilateral adrenal hyperplasia vs bilateral adrenal masses including dexamethasone suppression test, serum ACTH, aldosterone-renin levels, and an MRI of the abdomen to further delineate these adrenal lesions. She is tolerating a diet, and her pain seems to be well controlled. I would recommend obtaining a serum lactate to ensure that this is not elevated. I will follow the results of the above-mentioned studies to make further recommendations. JOB #: [id number] EXT JOB #:[id number]
[2016-12-26] MEDS: traMADol 50 MG TABLET PO PRN ×2 (02:37→14:44)
[2016-12-26] MEDS: ACETAMINOPHEN 325 MG TABLET PO PRN (03:58)
[2016-12-26 04:24] LABS: BASOPHILS % (AUTO) 0.2 %; EOSINOPHILS % (AUTO) 0.1 %; HCT - HEMATOCRIT 43.9 % (37.0-47.0); HGB - HEMOGLOBIN 13.5 g/dL (12.0-16.0); LYMPHOCYTES # (AUTO) 0.9 10^3/uL (1.5-3.5); LYMPHOCYTES % (AUTO) 5.2 %; MEAN CORPUSCULAR HEMOGLOBIN 28.5 pg (27.0-31.0); MEAN CORPUSCULAR HGB CONC 30.8 g/dL (32.0-36.0); MEAN CORPUSCULAR VOLUME 92.6 fL (81.0-99.0); MEAN PLATELET VOLUME 8.7 fL (7.9-10.8); MONOCYTES # (AUTO) 1.2 10^3/uL (0.0-1.0); MONOCYTES % (AUTO) 6.6 %; NEUTROPHILS # (AUTO) 15.9 10^3/uL (1.5-6.6); NEUTROPHILS % (AUTO) 87.9 %; NUCLEATED RED BLOOD CELLS AUTO 0.4 /100WBC; RED BLOOD COUNT 4.74 10^6/uL (4.20-5.40); RED CELL DISTRIBUTION WIDTH 17.9 % (12.0-15.0)
[2016-12-26] MEDS: SODIUM CHLORIDE FLUSH 0.9% 10 ML SYRINGE IVP SCH ×3 (04:33→21:53)
[2016-12-26 04:35] LABS: ALBUMIN/GLOBULIN RATIO 0.6 (1.0-2.2); BILIRUBIN,TOTAL 0.4 mg/dL (0.2-1.0); CALCIUM 7.5 mg/dL (8.5-10.3); CREATININE 1.1 mg/dL (0.4-1.0); POTASSIUM 4.4 mmol/L (3.5-5.0); TOTAL PROTEIN 5.7 g/dL (6.7-8.2)
[2016-12-26] MEDS: GABAPENTIN 100 MG CAPSULE PO SCH ×3 (06:42→21:47)
[2016-12-26] MEDS ORDERED: ZINC OXIDE 20% OINT 28.35 GM TUBE TOP PRN (07:19)
[2016-12-26] MEDS: ASCORBIC ACID CHEW 500 MG TABLET PO SCH (09:08)
[2016-12-26] MEDS: FERROUS SULFATE 325 MG TABLET PO SCH ×2 (09:08→17:51)
[2016-12-26] MEDS: INSULIN ASPART 300 UNIT/3 ML PEN SUBQ SCH ×4 (09:08→21:46)
[2016-12-26] MEDS: MULTIVITAMIN TABLET PO SCH (09:08)
[2016-12-26] MEDS: CALCIUM CARBONATE CHEW 500 MG TABLET PO SCH ×2 (09:08→21:47)
[2016-12-26] MEDS: FAMOTIDINE 20 MG TABLET PO SCH (09:09)
[2016-12-26] MEDS: DOCUSATE SODIUM 250 MG CAPSULE PO SCH (09:09)
[2016-12-26] MEDS: DULoxetine 20 MG CAPSULE PO SCH (09:09)
[2016-12-26] MEDS: HEPARIN 5,000 UNIT/ML VIAL SUBQ SCH (09:09)
[2016-12-26] MEDS: LISINOPRIL 5 MG TABLET PO SCH (09:10)
[2016-12-26] MEDS: POLYETHYLENE GLYCOL 3350 17 GM PACKET PO SCH (09:10)
[2016-12-26] MEDS: METOPROLOL TARTRATE 25 MG TABLET PO SCH (09:10)
[2016-12-26] MEDS: LIDOCAINE OINTMENT 5% 35.44 GM TUBE TOP SCH ×4 (09:10→21:47)
[2016-12-26] MEDS: SODIUM CHLORIDE 1 GM TABLET PO SCH (09:11)
[2016-12-26] MEDS: SPIRONOLACTONE 25 MG TABLET PO SCH ×2 (09:11→20:49)
[2016-12-26] MEDS: ONDANSETRON ODT 4 MG TABLET TL PRN (14:12)
[2016-12-26] MEDS: WARFARIN 5 MG TABLET PO SCH (14:13)
[2016-12-26] MEDS ORDERED: WARFARIN 2.5 MG TABLET PO SCH (17:00)
[2016-12-26] MEDS: AZITHROMYCIN INJ 500 MG in SODIUM CHLORIDE 0.9% 250 ML IV SCH (17:49)
[2016-12-26] MEDS: cefTRIAXone 1 GM in SODIUM CHLORIDE 0.9% MINIBAG 100 ML IV SCH (17:59)
--- NOTE | 2016-12-26 18:23 | XRAY Preliminary Report ---
Exam: XR Chest for Line Placement IMPRESSION: 1. Left PICC catheter tip at cavoatrial junction. 2. Extensive infiltrates throughout the left lung. [facility] SITE ID: [id number]
--- NOTE | 2016-12-26 18:25 | XRAY Report ---
EXAM: CHEST RADIOGRAPHY EXAM DATE: 12/26/2016 05:52 PM. CLINICAL HISTORY: Eval tip of PICC. COMPARISON: None. TECHNIQUE: 1 view. FINDINGS: Lungs/Pleura: Extensive hazy infiltration of left lung with obscuration of left hemidiaphragm. Probab le small left effusion area clear right lung with coarse lung markings. No definite pneumothorax. Mediastinum: Normal heart size. Upper lobe vessels not distended. Other: Left PIC catheter at cavoatrial junction about 5.4 cm below level of robert. IMPRESSION: 1. Left PICC catheter tip at cavoatrial junction. 2. Extensive infiltrates throughout the left lung. [facility] Referring Provider Line: [phone] SITE ID: [id number]
--- NOTE | 2016-12-26 18:49 | PROVIDER PROGRESS NOTE ---
Assessment/Plan - Problem List (1) Pneumonia Qualifiers: Pneumonia type: due to unspecified organism Laterality: left Assessment/Plan: Pt's respiratory status is improving, no respiratory distress. Continue iv antibiotics (2) Hypotension Assessment/Plan: No sudden drops in BP today. Pt's iv's have infiltrated. A PICC line was inserted today, confirmed by CXR. No evidence for AMI, sepsis, GI bleed or dehydration as cause of previous 2 days of sudden hypotension. Will continue to monitor in ICU. (3) Absence attack Assessment/Plan: No further sudden lethargy (which accompanied hypotension the past 2 days). Will evaluate for TIA with brain CT and MRI. (4) Ischemic cardiomyopathy Assessment/Plan: Echo today was remarkable for 4-chamber dilitation, LVEF 20%, large ovoid clots in the apex of the LV and the RV and probably in the descending aorta/abdominal aorta. I reviewed her past admissions and LVEF has been this low with Hx of CAD and MIs. Will change Metoprolol Tartrate to Carvedilol 12.5 mg po bid, continue RAVINDER but lower the dose due to low BP, continue Spironolactone and ASA. Pt needs anticoagulation. Will start Lovenox therapetic dose until INR therapeutic on Coumadin. (5) DM2 (diabetes mellitus, type 2) Qualifiers: Diabetes mellitus complication detail: with other neurological complication Assessment/Plan: Continue DM meds and diet. (6) Psychiatric disorder Assessment/Plan: The patient described that she has needed psych care in the past and wishes to continue. Thus far, no evidence of psychiatric behavior. - Current Meds Current Meds: Current Medications Generic Name Dose Route Start Last Admin Trade Name María PRN Reason Stop Dose Admin Acetaminophen 650 mg 12/22/16 20:00 12/26/16 03:58 Tylenol PO 650 mg Q4HR PRN Administration Pain 1 to 4 Ascorbic Acid 500 mg 12/23/16 13:00 12/26/16 09:08 Vitamin C PO 500 mg DAILY MILA Administration Calcium Carbonate/Glycine 500 mg 12/23/16 13:00 12/26/16 09:08 Tums PO 500 mg BID MILA Administration Docusate Sodium 250 - 500 mg 12/25/16 14:00 12/26/16 09:09 Colace 250mg Capsule PO 250 mg DAILY MILA Administration Duloxetine HCl 40 mg 12/24/16 09:00 12/26/16 09:09 Cymbalta PO 40 mg DAILY MILA Administration Famotidine 20 mg 12/23/16 09:00 12/26/16 09:09 Pepcid PO 20 mg DAILY MILA Administration Ferrous Sulfate 325 mg 12/23/16 17:00 12/26/16 17:51 Feosol PO 325 mg BIDWM MILA Administration Gabapentin 100 mg 12/22/16 23:45 12/26/16 14:13 Neurontin PO 100 mg TID MILA Administration Heparin Sodium (Porcine) 5,000 unit 12/22/16 21:00 12/26/16 09:09 SUBQ 5,000 unit BID MILA Administration Ceftriaxone Sodium 1 gm/ 100 mls @ 200 mls/hr 12/24/16 10:00 12/26/16 17:59 Sodium Chloride IV 200 mls/hr DAILY MILA Administration Azithromycin 500 mg/ Sodium 250 mls @ 250 mls/hr 12/24/16 11:00 12/26/16 17:49 Chloride IV 250 mls/hr DAILY@1100 MILA Administration Insulin Aspart 2 - 10 unit 12/26/16 08:00 12/26/16 17:51 Novolog SUBQ Not Given 0800,1200,1700,2100 [facility] Protocol Lidocaine 1 applic 12/22/16 23:45 12/26/16 17:51 Xylocaine Ointment 5% TOP 1 applic QID MILA Administration Multivitamins 1 tab 12/23/16 13:00 12/26/16 09:08 Theragran PO 1 tab DAILYWM [facility] Administration Ondansetron HCl 4 mg 12/22/16 20:00 12/23/16 16:20 Zofran Inj IVP 4 mg Q6HR PRN Administration Nausea / Vomiting Ondansetron HCl 4 mg 12/24/16 11:47 12/26/16 14:12 Zofran Odt TL 4 mg Q4HR PRN Administration Nausea / Vomiting Polyethylene Glycol 17 gm 12/23/16 09:00 12/26/16 09:10 Miralax PO 17 gm DAILY MILA Administration Sodium Chloride 10 ml 12/22/16 22:00 12/26/16 14:04 Normal Saline Flush 0.9% IVP Not Given Q8HR [facility] Spironolactone 25 mg 12/23/16 13:00 12/26/16 09:11 Aldactone PO 25 mg BID MILA Administration Tramadol HCl 25 mg 12/26/16 12:06 12/26/16 14:44 Ultram PO 25 mg Q12H PRN Administration PAIN Warfarin Sodium 5 mg 12/24/16 17:00 12/26/16 14:13 Coumadin PO 5 mg QDWARFARIN MILA Administration - Lab Result Fish Bone Diagrams: 12/27/16 04:25 12/27/16 04:25 - Additional Planning My Orders: My Active Orders 12/26/16 Brain W/WO [MRI] Routine 12/26/16 12:06 traMADol [Ultram] 25 mg PO Q12H PRN 12/26/16 12:07 Lisinopril [Zestril] 2.5 mg PO DAILY 12/26/16 21:00 Carvedilol [Coreg] 12.5 mg PO BID Subjective - Subjective Patient Reports: Feeling Better Objective Vital Signs: Vital Signs - 24 hr 12/25/16 12/25/16 12/25/16 19:00 20:00 21:00 Temperature 36.9 C Heart Rate [ 78 78 80 Monitoring electrodes] Respiratory 17 16 14 Rate Blood Pressure Blood Pressure 112/84 H 112/85 H 96/79 [Right Brachial artery] O2 Saturation 97 99 93 12/25/16 12/25/16 12/25/16 22:00 22:35 23:00 Temperature Heart Rate [ 80 78 Monitoring electrodes] Respiratory 19 20 Rate Blood Pressure 107/74 Blood Pressure 105/82 H 104/84 H [Right Brachial artery] O2 Saturation 95 94 12/26/16 12/26/16 12/26/16 00:00 01:00 02:00 Temperature 36.9 C Heart Rate [ 79 77 78 Monitoring electrodes] Respiratory 14 16 14 Rate Blood Pressure Blood Pressure 108/80 103/81 H 116/92 H [Right Brachial artery] O2 Saturation 95 96 100 12/26/16 12/26/16 12/26/16 03:00 04:00 05:00 Temperature 36.9 C Heart Rate [ 77 78 78 Monitoring electrodes] Respiratory 27 H 15 14 Rate Blood Pressure Blood Pressure 103/77 95/68 85/73 L [Right Brachial artery] O2 Saturation 93 94 93 12/26/16 12/26/16 12/26/16 06:00 06:47 08:00 Temperature 36.8 C Heart Rate [ 79 79 76 Monitoring electrodes] Respiratory 14 13 15 Rate Blood Pressure Blood Pressure 93/74 90/55 L 103/83 H [Right Brachial artery] O2 Saturation 96 93 96 12/26/16 12/26/16 12/26/16 09:00 09:10 10:00 Temperature Heart Rate [ 76 77 Monitoring electrodes] Respiratory 17 100 H Rate Blood Pressure 103/83 H Blood Pressure 94/75 106/86 H [Right Brachial artery] O2 Saturation 96 12/26/16 12/26/16 12/26/16 11:00 12:00 13:00 Temperature 36.6 C Heart Rate [ 74 73 72 Monitoring electrodes] Respiratory 14 12 12 Rate Blood Pressure Blood Pressure 96/86 H 100/62 104/86 H [Right Brachial artery] O2 Saturation 95 99 95 12/26/16 12/26/16 12/26/16 14:00 15:00 16:18 Temperature 36.6 C Heart Rate [ 72 73 76 Monitoring electrodes] Respiratory 16 13 14 Rate Blood Pressure Blood Pressure 97/84 H 100/79 111/82 H [Right Brachial artery] O2 Saturation 96 98 97 12/26/16 12/26/16 17:00 18:00 Temperature Heart Rate [ 72 78 Monitoring electrodes] Respiratory 17 18 Rate Blood Pressure Blood Pressure 102/74 106/55 L [Right Brachial artery] O2 Saturation 97 96 Oxygen O2 Source Room air I&O (Last 24 Hrs): Intake and Output Totals x24h 12/24/16 12/25/16 12/26/16 23:59 23:59 23:59 Intake Total 1854 3390 830 Output Total 105 405 Balance 1854 3285 425 General: Alert, Cooperative HEENT: Mucous membr. moist/pink Neck: Supple Neuro: Non Focal Cardiovascular: Regular rate, Other (1-2/6 syst murmur LLSB) Respiratory: No respiratory distress Abdomen: Soft Extremities: Other (BKAs) - Results Results: Laboratory Results WBC 18.0 x10^3/uL (4.8-10.8) H 12/26/16 04:16 RBC 4.74 10^6/uL (4.20-5.40) 12/26/16 04:16 Hgb 13.5 g/dL (12.0-16.0) 12/26/16 04:16 Hct 43.9 % (37.0-47.0) 12/26/16 04:16 MCV 92.6 fL (81.0-99.0) 12/26/16 04:16 MCH 28.5 pg (27.0-31.0) 12/26/16 04:16 MCHC 30.8 g/dL (32.0-36.0) L 12/26/16 04:16 RDW 17.9 % (12.0-15.0) H 12/26/16 04:16 Plt Count 165 10^3/uL (130-450) 12/26/16 04:16 MPV 8.7 fL (7.9-10.8) 12/26/16 04:16 Neut # 15.9 10^3/uL (1.5-6.6) H 12/26/16 04:16 Lymph # 0.9 10^3/uL (1.5-3.5) L 12/26/16 04:16 Trigg # 1.2 10^3/uL (0.0-1.0) H 12/26/16 04:16 Eos # 0.0 10^3/uL (0.0-0.7) 12/26/16 04:16 Baso # 0.0 10^3/uL (0.0-0.1) 12/26/16 04:16 Absolute Nucleated RBC 0.07 x10^3/uL 12/26/16 04:16 Nucleated RBCs 0.4 /100WBC 12/26/16 04:16 PT 16.5 secs (9.9-12.6) H 12/25/16 05:25 INR 1.5 (0.8-1.2) H 12/25/16 05:25 Whole Blood INR 1.4 (0.8-1.2) H 12/26/16 05:06 Sodium 129 mmol/L (135-145) L 12/26/16 04:16 Potassium 4.4 mmol/L (3.5-5.0) 12/26/16 04:16 Chloride 101 mmol/L (101-111) 12/26/16 04:16 Carbon Dioxide 21 mmol/L (21-32) 12/26/16 04:16 Anion Gap 7.0 (6-13) 12/26/16 04:16 BUN 59 mg/dL (6-20) H 12/26/16 04:16 Creatinine 1.1 mg/dL (0.4-1.0) H 12/26/16 04:16 Estimated GFR (MDRD) 51 (>89) L 12/26/16 04:16 Glucose 142 mg/dL (70-100) H 12/26/16 04:16 POC Whole Bld Glucose 129 mg/dL (70 - 100) H 12/26/16 17:32 Glycated Hemoglobin 8.3 % (4.6-6.2) H 12/22/16 18:10 Estim Average Glucose 192 (70-100) H 12/22/16 18:10 Lactic Acid 1.5 mmol/L (0.5-2.2) 12/26/16 04:16 Calcium 7.5 mg/dL (8.5-10.3) L 12/26/16 04:16 Magnesium 1.8 mg/dL (1.7-2.8) 12/24/16 10:06 Total Bilirubin 0.4 mg/dL (0.2-1.0) 12/26/16 04:16 AST 17 IU/L (10-42) 12/26/16 04:16 ALT 31 IU/L (10-60) 12/26/16 04:16 Alkaline Phosphatase 108 IU/L (42-121) 12/26/16 04:16 Total Creatine Kinase 108 IU/L (22-269) 12/22/16 18:10 Troponin I < 0.04 ng/mL (<0.49) 12/26/16 10:08 B-Natriuretic Peptide 1899 pg/mL (5-100) H 12/26/16 10:08 Total Protein 5.7 g/dL (6.7-8.2) L 12/26/16 04:16 Albumin 2.2 g/dL (3.2-5.5) L 12/26/16 04:16 Globulin 3.5 g/dL (2.1-4.2) 12/26/16 04:16 Albumin/Globulin Ratio 0.6 (1.0-2.2) L 12/26/16 04:16 Lipase 12 U/L (22-51) L 12/22/16 16:30 TSH 7.66 uIU/mL (0.34-5.60) H 12/25/16 16:35 Cortisol AM Sample 26.2 ug/dL 12/25/16 08:52 Urine Color YELLOW 12/22/16 22:00 Urine Clarity CLOUDY (CLEAR) 12/22/16 22:00 Urine pH 6.0 PH (5.0-7.5) 12/22/16 22:00 Ur Specific Dresher 1.020 (1.002-1.030) 12/22/16 22:00 Urine Protein 100 mg/dL (NEGATIVE) H 12/22/16 22:00 Urine Glucose (UA) NEGATIVE mg/dL (NEGATIVE) 12/22/16 22:00 Urine Ketones NEGATIVE mg/dL (NEGATIVE) 12/22/16 22:00 Urine Occult Blood TRACE-LYSE (NEGATIVE) 12/22/16 22:00 Urine Nitrite NEGATIVE (NEGATIVE) 12/22/16 22:00 Urine Bilirubin NEGATIVE (NEGATIVE) 12/22/16 22:00 Urine Urobilinogen 0.2 (NORMAL) E.U./dL (NORMAL) 12/22/16 22:00 Ur Leukocyte Esterase NEGATIVE (NEGATIVE) 12/22/16 22:00 Urine RBC 0-5 /HPF (0-5) 12/22/16 22:00 Urine WBC 0-3 /HPF (0-5) 12/22/16 22:00 Ur Squamous Epith Cells MANY Squamous (<= Few) H 12/22/16 22:00 Amorphous Sediment Marked /LPF 12/22/16 22:00 Urine Bacteria Many /HPF (None Seen) H 12/22/16 22:00 Urine Culture Comments NOT INDICATED 12/22/16 22:00 Salicylates < 6.0 mg/dL 12/22/16 16:30 Urine Opiates Screen NEGATIVE (NEGATIVE) 12/22/16 22:00 Ur Oxycodone Screen NEGATIVE (NEGATIVE) 12/22/16 22:00 Urine Methadone Screen NEGATIVE (NEGATIVE) 12/22/16 22:00 Ur Propoxyphene Screen NEGATIVE (NEGATIVE) 12/22/16 22:00 Acetaminophen < 10 ug/mL (10-30) L 12/22/16 16:30 Ur Barbiturates Screen NEGATIVE (NEGATIVE) 12/22/16 22:00 Ur Tricyclics Screen NEGATIVE (NEGATIVE) 12/22/16 22:00 Ur Phencyclidine Scrn NEGATIVE (NEGATIVE) 12/22/16 22:00 Ur Amphetamine Screen NEGATIVE (NEGATIVE) 12/22/16 22:00 U Methamphetamines Scrn NEGATIVE (NEGATIVE) 12/22/16 22:00 U Benzodiazepines Scrn NEGATIVE (NEGATIVE) 12/22/16 22:00 Urine Cocaine Screen NEGATIVE (NEGATIVE) 12/22/16 22:00 U Cannabinoids Screen POSITIVE (NEGATIVE) H 12/22/16 22:00 Ethyl Alcohol < 5.0 mg/dL 12/22/16 16:30 - Procedures Procedures: Procedures CONTINUOUS INVASIVE MECHANICAL VENTILATION <96 CONSEC HRS (01/14/15)
[2016-12-26] MEDS: CARVEDILOL 12.5 MG TABLET PO SCH (20:49)
[2016-12-26] MEDS ORDERED: ENOXAPARIN 40 MG/0.4 ML SYRINGE SUBQ SCH (21:00)
[2016-12-26] MEDS: ENOXAPARIN 60 MG/0.6 ML SYRINGE SUBQ SCH (21:46)
[2016-12-27 05:49] LABS: MONOCYTES % (AUTO) 5.3 %
[2016-12-27 05:53] LABS: INR 2.5 (0.8-1.2); PT - PROTHROMBIN TIME 28.1 secs (9.9-12.6)
[2016-12-27 05:56] LABS: BASOPHILS % (AUTO) 0.1 %; EOSINOPHILS % (AUTO) 0.1 %; HGB - HEMOGLOBIN 14.1 g/dL (12.0-16.0); LYMPHOCYTES # (AUTO) 1.1 10^3/uL (1.5-3.5); LYMPHOCYTES % (AUTO) 5.7 %; MEAN CORPUSCULAR HGB CONC 31.3 g/dL (32.0-36.0); MEAN CORPUSCULAR VOLUME 92.6 fL (81.0-99.0); NEUTROPHILS # (AUTO) 16.4 10^3/uL (1.5-6.6); NEUTROPHILS % (AUTO) 88.8 %; NUCLEATED RED BLOOD CELLS AUTO 0.1 /100WBC; RED BLOOD COUNT 4.86 10^6/uL (4.20-5.40); RED CELL DISTRIBUTION WIDTH 18.9 % (12.0-15.0); UNCORRECTED WHITE BLOOD COUNT 18.5 x10^3/uL; WHITE BLOOD COUNT 18.5 x10^3/uL (4.8-10.8)
[2016-12-27 06:02] LABS: ALBUMIN/GLOBULIN RATIO 0.6 (1.0-2.2); BILIRUBIN,TOTAL 0.7 mg/dL (0.2-1.0); CALCIUM 7.5 mg/dL (8.5-10.3); CREATININE 1.1 mg/dL (0.4-1.0); POTASSIUM 4.8 mmol/L (3.5-5.0)
[2016-12-27] MEDS: GABAPENTIN 100 MG CAPSULE PO SCH ×3 (06:32→21:12)
[2016-12-27] MEDS: SODIUM CHLORIDE FLUSH 0.9% 10 ML SYRINGE IVP SCH ×3 (06:33→21:14)
[2016-12-27] MEDS: INSULIN ASPART 300 UNIT/3 ML PEN SUBQ SCH ×4 (07:49→21:29)
[2016-12-27] MEDS: DOCUSATE SODIUM 250 MG CAPSULE PO SCH (07:50)
[2016-12-27] MEDS: POLYETHYLENE GLYCOL 3350 17 GM PACKET PO SCH (07:52)
[2016-12-27] MEDS: MULTIVITAMIN TABLET PO SCH (08:46)
[2016-12-27] MEDS: FERROUS SULFATE 325 MG TABLET PO SCH ×2 (08:46→21:13)
[2016-12-27] MEDS: ASCORBIC ACID CHEW 500 MG TABLET PO SCH (08:46)
[2016-12-27] MEDS: CALCIUM CARBONATE CHEW 500 MG TABLET PO SCH ×2 (08:46→21:11)
[2016-12-27] MEDS: ENOXAPARIN 60 MG/0.6 ML SYRINGE SUBQ SCH ×2 (08:47→21:12)
[2016-12-27] MEDS: DULoxetine 20 MG CAPSULE PO SCH (08:47)
[2016-12-27] MEDS: CARVEDILOL 12.5 MG TABLET PO SCH ×2 (08:47→21:12)
[2016-12-27] MEDS: cefTRIAXone 1 GM in SODIUM CHLORIDE 0.9% MINIBAG 100 ML IV SCH (08:47)
[2016-12-27] MEDS: FAMOTIDINE 20 MG TABLET PO SCH (08:47)
[2016-12-27] MEDS: LIDOCAINE OINTMENT 5% 35.44 GM TUBE TOP SCH ×4 (08:48→21:16)
[2016-12-27] MEDS: SPIRONOLACTONE 25 MG TABLET PO SCH ×2 (08:49→21:11)
[2016-12-27] MEDS: LISINOPRIL 5 MG TABLET PO SCH (08:49)
--- NOTE | 2016-12-27 10:02 | CONSULTATION NOTE ---
Referring Provider Name of Referring Provider:: Matt Porras CRNA Consult Date: 12/27/16 (Met with Dr. Gilbert to review PICC line placement. He recommended that the line be pulled back 4 cm, which I did, redressed and placed new stat lock secure device.) History - Past Medical History Cardiovascular: reports: Hypertension, Coronary artery disease, Deep vein thrombosis, [place] Respiratory: reports: Asthma, COPD, Emphysema Neuro: reports: CVA, Head injury, Fainting Endocrine/Autoimmune: reports: Type 2 diabetes GI: reports: Hiatal hernia, Hemorrhoids, Diverticulitis : reports: None Psych: reports: Depression, Anxiety Musculoskeletal: reports: Gout Derm: reports: None MRSA Hx?: Yes - Past Surgical History General: reports: Appendectomy, Bowel surgery 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 - POLST Patient has POLST: No Meds/Allgy - Home Medications Home Medications: Ambulatory Orders Medication Instructions Recorded Confirmed Warfarin Sodium [Coumadin] 5 mg PO DAILY 01/15/15 12/23/16 Metoprolol Tartrate 25 mg PO BID 11/07/15 12/23/16 Insulin Lispro Protamin/Lispro 15 units SUBQ BID 11/01/16 12/23/16 [Humalog Mix 75-25 Kwikpen] Lisinopril 5 mg ORAL DAILY 11/01/16 12/23/16 Spironolactone 25 mg ORAL BID 11/01/16 12/23/16 traMADol [Ultram] 50 mg ORAL Q6HR 11/01/16 12/23/16 Ascorbic Acid [Vitamin C] 500 mg PO DAILY 12/22/16 12/23/16 DULoxetine [Cymbalta] 40 mg PO DAILY 12/22/16 12/23/16 Ferrous Sulfate 325 mg PO BIDWM 12/22/16 12/23/16 Multivit with Calcium,Iron,Min 1 each PO DAILY 12/22/16 12/23/16 [Multiple Vitamins For Women] - Allergies Allergies/Adverse Reactions: Allergies Allergy/AdvReac Type Severity Reaction Status Date / Time latex Allergy Unknown Verified 11/01/16 12:58 levofloxacin Allergy Itching Verified 07/15/15 11:57 levopropoxyphene Allergy Unknown Verified 11/01/16 12:58 Penicillins Allergy Hives Verified 07/15/15 11:57 Exam - Vital Signs Vital Signs: Vital Signs x48h Temp Pulse Resp BP Pulse Ox 12/27/16 08:52 86 13 97/79 96 12/27/16 07:34 37.2 C 88 15 100/47 L 93 12/27/16 07:00 37.0 C 89 14 102/91 H 92 12/27/16 06:00 90 12 106/72 92 12/27/16 05:00 37.4 C 88 12 98/68 91 L 12/27/16 04:00 88 15 108/71 95 12/27/16 03:00 85 18 103/78 91 L Conclusion/Plan - Lab Results Fish Bones: 12/27/16 04:25 12/27/16 04:25
[2016-12-27] MEDS ORDERED: GADOBUTROL 7.5 MMOL/7.5 ML VIAL IVP ONE (12:36)
[2016-12-27] MEDS: AZITHROMYCIN INJ 500 MG in SODIUM CHLORIDE 0.9% 250 ML IV SCH (13:11)
[2016-12-27] MEDS: traMADol 50 MG TABLET PO PRN (13:12)
[2016-12-27] MEDS: WARFARIN 5 MG TABLET PO SCH (13:12)
--- NOTE | 2016-12-27 14:03 | MRI Preliminary Report ---
Exam: MRI Brain W/WO IMPRESSION: (Study limited by motion artifact.) 1. Linear and wedge-shaped focus of signal abnormality in the right superior temporal gyrus extending to the superior temporal sulcus. Finding suggest a late acute or subacute infarct (likely less than one week-up to 3 weeks in age). No associated hemorrhage. 2. Focal area of cortical and subcortical T2 and FLAIR bright signal in the high right parietal conve xity with subcortical focus in the high right precentral gyrus. This may represent sequela of old lac un[place] infarct. 3. White matter T2 and FLAIR bright signal in the cerebral hemispheres and brainstem. It is nonspecif ic but typically secondary to small vessel ischemic change. Critical result: We are paging the referring physician to be made aware of these findings. [facility] SITE ID: [id number]
--- NOTE | 2016-12-27 14:06 | MRI Report ---
EXAM: MRI BRAIN WITHOUT AND WITH CONTRAST EXAM DATE: 12/27/2016 12:47 PM. CLINICAL HISTORY: CVA. COMPARISON: CT scan of the head 12/25/2016, 11/06/2015. TECHNIQUE: Multiplanar, multisequence T1-weighted and fluid-sensitive MR sequences of the brain were performed. Sequences optimized for routine evaluation. Other: None. Without and with IV Contrast: 3 c c Gadavist. FINDINGS: (Study is limited by patient motion artifact.) Brain Volume: Normal for age. Parenchyma/Dura: Wedge-shaped focus of signal abnormality is seen in the mid and posterior aspect of the right superior temporal gyrus extending to the superior temporal sulcus. Decreased T1 with increa sed T2 and FLAIR signal is seen. Patchy areas of increased diffusion is seen. Several foci of decreas ed ADC map signal are present as well. No associated hemorrhage. 13 mm focus of cortical and underlying white matter T2 and FLAIR bright signal is seen in the high po sterior right parietal lobe without associated restricted diffusion. Linear focus of subcortical whit e matter T2 and FLAIR bright signal is seen in the high right precentral gyrus without restricted dif fusion. Mild patchy periventricular and deep white matter T2 and FLAIR bright signal is seen througho ut the cerebral hemispheres and brainstem. Ventricles/Cisterns: No hydrocephalus. No abnormal extra-axial fluid collection or hemorrhage. Orbits: Unremarkable. Sella turcica: Unremarkable. IAC: Unremarkable. Vasculature: Normal signal flow void is seen in the major arterial structures at the skull base. Sinuses: No sinusitis evident. Bones: The skull appears intact. Other: None. IMPRESSION: (Study limited by motion artifact.) 1. Linear and wedge-shaped focus of signal abnormality in the right superior temporal gyrus extending to the superior temporal sulcus. Finding suggest a late acute or subacute infarct (likely less than one week-up to 3 weeks in age). No associated hemorrhage. 2. Focal area of cortical and subcortical T2 and FLAIR bright signal in the high right parietal conve xity with subcortical focus in the high right precentral gyrus. This may represent sequela of old [place] infarct. 3. White matter T2 and FLAIR bright signal in the cerebral hemispheres and brainstem. It is nonspecif ic but typically secondary to small vessel ischemic change. Critical result: We are paging the referring physician to be made aware of these findings. [facility] Referring Provider Line: [phone] SITE ID: [id number]
[2016-12-27] MEDS ORDERED: SODIUM CHLORIDE 0.9% 1,000 ML IV ONE ×3 (14:17→15:39)
[2016-12-27] MEDS ORDERED: SODIUM CHLORIDE FLUSH 0.9% 10 ML SYRINGE IVP ONE (14:18)
[2016-12-27] MEDS: SODIUM CHLORIDE FLUSH 0.9% 10 ML SYRINGE IVP PRN (14:30)
--- NOTE | 2016-12-27 15:03 | MRI Preliminary Report ---
Exam: MRI Abdomen W/WO IMPRESSION: 1. Bilateral adrenal gland enlargement left greater than right with bilateral adrenal gland nodules a nd nodularity similar compared to 04/21/2016 and 12/24/2016 CT scans although the nodularity and size of the implants is slightly more prominent compared to 01/28/2014. Overall, findings may be due in p art related to hyperplasia or reactive in origin with the overall appearance of the nodules appearing similar. Ability to differentiate for adenoma is limited due to respiratory motion. 2. Bilateral renal cysts including a left renal hemorrhagic/proteinaceous cyst. 3. Cholelithiasis. 4. Large left pleural effusion and [id number] right pleural effusions. 5. Subcutaneous edema. [facility] SITE ID: [id number]
--- NOTE | 2016-12-27 15:31 | MRI Report ---
EXAM: MR ABDOMEN WITH AND WITHOUT CONTRAST (MR ADRENALS) EXAM DATE: 12/27/2016 12:42 PM. CLINICAL HISTORY: Abdominal pain. COMPARISON: 04/21/2016. 12/24/2016. TECHNIQUE: Multiplanar breath-hold T1 and T2 sequences obtained through the adrenals and abdomen on a n MR scanner. Thin-section, in-phase and [id number] sequence obtained through the adrenal glands. 3 -D axial precontrast and postcontrast images were obtained following the intravenous administration o f 3 cc of Gadavist. Coronal postcontrast images were also obtained. FINDINGS: Throughout the study, motion limits detail. Lung Bases: Large left and small to moderate right pleural effusions and bibasilar opacities. There i s a small to moderate hiatal hernia. Liver: Signal intensity of the liver is homogeneous. No distinct hepatic lesions are identified. No i ntrahepatic ductal dilatation. Gallbladder: Gallstones are seen in the gallbladder. No pericholecystic fluid or edema. No biliary du ctal dilatation. Pancreas: Pancreatic parenchymal volume loss is again seen. No peripancreatic edema. Detail of the pa ncreas is limited due to motion. Spleen: The spleen appears normal. Kidneys: Signal intensity of the kidneys is. There is right renal atrophy in comparison to the left. There are bilateral renal cysts present, the largest measuring up to 10 mm. No hydronephrosis. There is perinephric stranding bilaterally, left greater than right. High-attenuation 10 mm lesion in the l eft kidney likely represents a hemorrhagic cyst with high signal intensity on the T1 and markedly dec reased signal intensity on the T2 weighted sequences. Adrenals: There is adrenal gland nodularity and thickening bilaterally with a lobular contour as befo re. This is similar compared to the 12/24/[address] from 04/21/2016 although slightly more promi nent compared to 01/28/2014 CT. The lobularity and thickening is more prominent on the left than the right, with slight enlargement particularly of the left adrenal gland. The most prominent area of nod ularity is seen in the body of the left adrenal gland as before, measuring 10 mm although this is unc hanged. Due to motion, clear depiction for assessment of dropout of signal between in- and out-of-pha se images is limited. Bowel: Stomach is mildly distended and unremarkable. Included portions of the small bowel and colon a re unremarkable. There is mild mesenteric edema. Small volume of fluid is seen in the abdomen. Retroperitoneum: Extensive peripheral noncalcified atheromatous plaque and thrombus is seen in the ab dominal aorta, particularly proximally. Maximal size of the proximal abdominal aorta measures 2.3 cm. No enlarged retroperitoneal lymph nodes. Degenerative changes of the lower thoracic and lumbar spine. There is diffuse subcutaneous edema. IMPRESSION: 1. Bilateral adrenal gland enlargement, left greater than right, with bilateral adrenal gland nodules and nodularity similar compared to 04/21/2016 and 12/24/2016 CT scans. However, the nodularity and s ize of the adrenal glands is slightly more prominent compared to the CT from 01/28/2014. Overall, fin dings may be due in part to hyperplasia or reactive in origin with the overall appearance of the nodu les appearing similar and/or adrenal adenomas. Ability to differentiate and delineate for an adrenal adenoma is limited due to respiratory motion. 2. Bilateral renal cysts including a left renal hemorrhagic/proteinaceous cyst. 3. Cholelithiasis. 4. Large left pleural effusion and [id number] right pleural effusions. 5. Subcutaneous edema. [facility] Referring Provider Line: [phone] SITE ID: [id number]
[2016-12-27] MEDS: MAG HYDROX/AL HYDROX/SIMETH 30 ML UDC PO PRN (23:29)
[2016-12-28] MEDS ORDERED: MIN OIL/DIMETHICON/COCONUT OIL 92 GM TUBE TOP ONE (02:54)
[2016-12-28] MEDS ORDERED: MIN OIL/DIMETHICON/COCONUT OIL 92 GM TUBE TOP PRN (03:25)
[2016-12-28] MEDS: SODIUM CHLORIDE FLUSH 0.9% 10 ML SYRINGE IVP SCH ×3 (05:30→21:58)
[2016-12-28] MEDS: GABAPENTIN 100 MG CAPSULE PO SCH ×3 (05:30→20:29)
[2016-12-28 06:00] LABS: BASOPHILS # (AUTO) 0.1 10^3/uL (0.0-0.1); BASOPHILS % (AUTO) 0.6 %; EOSINOPHILS % (AUTO) 0.2 %; HCT - HEMATOCRIT 43.2 % (37.0-47.0); HGB - HEMOGLOBIN 13.5 g/dL (12.0-16.0); LYMPHOCYTES # (AUTO) 0.9 10^3/uL (1.5-3.5); LYMPHOCYTES % (AUTO) 6.1 %; MEAN CORPUSCULAR HEMOGLOBIN 28.7 pg (27.0-31.0); MEAN CORPUSCULAR HGB CONC 31.1 g/dL (32.0-36.0); MEAN CORPUSCULAR VOLUME 92.2 fL (81.0-99.0); MEAN PLATELET VOLUME 8.8 fL (7.9-10.8); MONOCYTES # (AUTO) 0.8 10^3/uL (0.0-1.0); MONOCYTES % (AUTO) 5.3 %; NEUTROPHILS # (AUTO) 13.6 10^3/uL (1.5-6.6); NEUTROPHILS % (AUTO) 87.8 %; NUCLEATED RED BLOOD CELLS AUTO 0.2 /100WBC; RED BLOOD COUNT 4.69 10^6/uL (4.20-5.40); RED CELL DISTRIBUTION WIDTH 18.7 % (12.0-15.0); UNCORRECTED WHITE BLOOD COUNT 15.5 x10^3/uL; WHITE BLOOD COUNT 15.5 x10^3/uL (4.8-10.8)
[2016-12-28 06:06] LABS: PT - PROTHROMBIN TIME 57.1 secs (9.9-12.6)
[2016-12-28 06:11] LABS: ALBUMIN/GLOBULIN RATIO 0.6 (1.0-2.2); BILIRUBIN,TOTAL 0.8 mg/dL (0.2-1.0); CALCIUM 7.3 mg/dL (8.5-10.3); CREATININE 0.9 mg/dL (0.4-1.0); POTASSIUM 4.6 mmol/L (3.5-5.0); TOTAL PROTEIN 3.9 g/dL (6.7-8.2)
[2016-12-28] MEDS: INSULIN ASPART 300 UNIT/3 ML PEN SUBQ SCH ×4 (08:29→20:29)
[2016-12-28] MEDS: FERROUS SULFATE 325 MG TABLET PO SCH ×2 (09:30→17:22)
[2016-12-28] MEDS: CARVEDILOL 12.5 MG TABLET PO SCH ×2 (09:31→21:58)
[2016-12-28] MEDS: DOCUSATE SODIUM 250 MG CAPSULE PO SCH (09:32)
[2016-12-28] MEDS: POLYETHYLENE GLYCOL 3350 17 GM PACKET PO SCH (09:32)
[2016-12-28] MEDS: CALCIUM CARBONATE CHEW 500 MG TABLET PO SCH ×2 (09:41→20:29)
[2016-12-28] MEDS: DULoxetine 20 MG CAPSULE PO SCH (09:42)
[2016-12-28] MEDS: MULTIVITAMIN TABLET PO SCH (09:42)
[2016-12-28] MEDS: SPIRONOLACTONE 25 MG TABLET PO SCH ×2 (09:42→21:58)
[2016-12-28] MEDS: LISINOPRIL 5 MG TABLET PO SCH (09:42)
[2016-12-28] MEDS: ASCORBIC ACID CHEW 500 MG TABLET PO SCH (09:42)
[2016-12-28] MEDS: cefTRIAXone 1 GM in SODIUM CHLORIDE 0.9% MINIBAG 100 ML IV SCH (09:46)
[2016-12-28] MEDS: FAMOTIDINE 20 MG TABLET PO SCH (10:30)
[2016-12-28] MEDS: AZITHROMYCIN INJ 500 MG in SODIUM CHLORIDE 0.9% 250 ML IV SCH (10:30)
[2016-12-28] MEDS: LIDOCAINE OINTMENT 5% 35.44 GM TUBE TOP SCH ×3 (10:38→21:58)
[2016-12-28] MEDS: WARFARIN 2.5 MG TABLET PO SCH (14:30)
[2016-12-28] MEDS: SODIUM CHLORIDE FLUSH 0.9% 10 ML SYRINGE IVP PRN (20:29)
[2016-12-29] MEDS: MAG HYDROX/AL HYDROX/SIMETH 30 ML UDC PO PRN (04:00)
[2016-12-29] MEDS: SODIUM CHLORIDE FLUSH 0.9% 10 ML SYRINGE IVP SCH ×3 (06:13→21:20)
[2016-12-29] MEDS: GABAPENTIN 100 MG CAPSULE PO SCH ×4 (06:13→21:20)
[2016-12-29] MEDS: ONDANSETRON 4 MG/2 ML VIAL IVP PRN (06:21)
[2016-12-29] MEDS: FERROUS SULFATE 325 MG TABLET PO SCH ×2 (08:43→17:16)
[2016-12-29] MEDS: CARVEDILOL 12.5 MG TABLET PO SCH ×2 (08:44→21:12)
[2016-12-29] MEDS: MULTIVITAMIN TABLET PO SCH (08:44)
[2016-12-29] MEDS: CALCIUM CARBONATE CHEW 500 MG TABLET PO SCH ×2 (08:44→21:20)
[2016-12-29] MEDS: ASCORBIC ACID CHEW 500 MG TABLET PO SCH (08:44)
[2016-12-29] MEDS: DOCUSATE SODIUM 250 MG CAPSULE PO SCH (08:45)
[2016-12-29] MEDS: FAMOTIDINE 20 MG TABLET PO SCH (08:45)
[2016-12-29] MEDS: DULoxetine 20 MG CAPSULE PO SCH (08:45)
[2016-12-29] MEDS: LISINOPRIL 5 MG TABLET PO SCH (08:46)
[2016-12-29] MEDS: SPIRONOLACTONE 25 MG TABLET PO SCH ×2 (08:46→21:20)
[2016-12-29] MEDS: POLYETHYLENE GLYCOL 3350 17 GM PACKET PO SCH (08:46)
[2016-12-29] MEDS: INSULIN ASPART 300 UNIT/3 ML PEN SUBQ SCH ×4 (08:50→21:21)
[2016-12-29 09:24] LABS: BASOPHILS # (AUTO) 0.1 10^3/uL (0.0-0.1); BASOPHILS % (AUTO) 0.4 %; EOSINOPHILS % (AUTO) 0.2 %; HGB - HEMOGLOBIN 12.9 g/dL (12.0-16.0); LYMPHOCYTES # (AUTO) 0.6 10^3/uL (1.5-3.5); LYMPHOCYTES % (AUTO) 4.7 %; MEAN CORPUSCULAR HEMOGLOBIN 28.7 pg (27.0-31.0); MEAN CORPUSCULAR HGB CONC 31.4 g/dL (32.0-36.0); MEAN CORPUSCULAR VOLUME 91.5 fL (81.0-99.0); MEAN PLATELET VOLUME 8.3 fL (7.9-10.8); MONOCYTES # (AUTO) 0.9 10^3/uL (0.0-1.0); MONOCYTES % (AUTO) 6.9 %; NEUTROPHILS # (AUTO) 11.9 10^3/uL (1.5-6.6); NEUTROPHILS % (AUTO) 87.8 %; NUCLEATED RED BLOOD CELLS AUTO 0.1 /100WBC; RED BLOOD COUNT 4.48 10^6/uL (4.20-5.40); RED CELL DISTRIBUTION WIDTH 18.4 % (12.0-15.0); UNCORRECTED WHITE BLOOD COUNT 13.6 x10^3/uL; WHITE BLOOD COUNT 13.6 x10^3/uL (4.8-10.8)
[2016-12-29 09:31] LABS: INR 3.3 (0.8-1.2); PT - PROTHROMBIN TIME 37.1 secs (9.9-12.6)
[2016-12-29 09:37] LABS: ALBUMIN/GLOBULIN RATIO 0.6 (1.0-2.2); BILIRUBIN,TOTAL 0.7 mg/dL (0.2-1.0); BUN - BLOOD UREA NITROGEN 50 mg/dL (6-20); CALCIUM 7.6 mg/dL (8.5-10.3); CARBON DIOXIDE - CO2 27 mmol/L (21-32); CHLORIDE 100 mmol/L (101-111); CREATININE 0.8 mg/dL (0.4-1.0); GFR - MDRD 73 (>89); GLUCOSE 184 mg/dL (70-100); MAGNESIUM 1.6 mg/dL (1.7-2.8); PHOSPHORUS 1.7 mg/dL (2.5-4.6); POTASSIUM 4.7 mmol/L (3.5-5.0); SODIUM 132 mmol/L (135-145); TOTAL PROTEIN 4.7 g/dL (6.7-8.2)
[2016-12-29] MEDS: cefTRIAXone 1 GM in SODIUM CHLORIDE 0.9% MINIBAG 100 ML IV SCH (09:37)
[2016-12-29 09:49] LABS: CALCIUM, IONIZED 1.12 mmol/L (1.15-1.33); VBG PH 7.371 (7.31-7.41)
[2016-12-29] MEDS ORDERED: LIDOCAINE JELLY 2% 5 ML TUBE TOP ONE (10:06)
[2016-12-29] MEDS: AZITHROMYCIN INJ 500 MG in SODIUM CHLORIDE 0.9% 250 ML IV SCH (10:07)
[2016-12-29] MEDS: LIDOCAINE OINTMENT 5% 35.44 GM TUBE TOP SCH ×3 (10:50→17:20)
[2016-12-29] MEDS: MAGNESIUM OXIDE 400 MG TABLET PO SCH (12:34)
[2016-12-29] MEDS: WARFARIN 2.5 MG TABLET PO SCH (13:37)
--- NOTE | 2016-12-29 13:46 | PROVIDER PROGRESS NOTE ---
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 and was on coumadin but in April of 2016 she stopped her coumadin for unknown reason and now has developed more emboli Plan: Lovenox and coumadin Patients INR is 2.5 today If therapuetic for 24 hours then can stop lovenox and continue coumadin alone (2) Right ventricular apical thrombus Assessment/Plan: On echocardiogram patient found to have 0.6 x 1.8 cm apical thrombus with a translucent center meaning that it is subacute Patient likely having absence attacks and hypotension secondary to these cardiac thrombi in right and left ventricle Hypotension is likely due to reduced EF of 20% in conjunction with bilateral thrombi that may be effecting flow of blood through the heart Patients also likely having transient absence attacks secondary to the thrombus as he is likely having TIAs due to emboli 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 Continue IV ceftriaxone and azithromycin day 4 (4) Hypotension Assessment/Plan: Patient had another sudden drop in her BP with lethargy around 4pm today she responded to IVF but BP still no higher than 80-90 systolic No evidence for AMI, sepsis, GI bleed or dehydration as cause of sudden hypotension. Mostly likely this is occurring secondary to CHF with very low EF and cardiac thrombus causing decreased blood flow through the heart Will continue to monitor in ICU. (5) Absence attack Assessment/Plan: Patient had another event today with drop in her BP MRI suggests a linear and wedge-shaped focus of signal abnormality in the right superior temporal gyrus extending to superior temporal sulcus. Finding suggest a late acute or subacute infarct. No associated hemorrhage Patient likely having TIAs secondary to cardiac thrombus and she likely had a recent stoke Patient on coumadin now with therapeutic dose Will start ASA and lipitor PT to evaluate once more stable (6) Ischemic cardiomyopathy Assessment/Plan: Echo was remarkable for 4-chamber dilitation, LVEF 20%, large ovoid clots in the apex of the LV and the RV and probably in the descending aorta/abdominal aorta. Past admissions were reviewed and LVEF has been this low with Hx of CAD and MIs. Metoprolol Tartrate changed to Carvedilol 12.5 mg po bid, continue RAVINDER but lower the dose due to low BP, continue Spironolactone and ASA. Placed on lovenox and coumadin for thrombus. May need to adjust coreg dose if BP continues to be low. (7) DM2 (diabetes mellitus, type 2) Qualifiers: Diabetes mellitus complication detail: with other neurological complication Assessment/Plan: SS insulin and dm diet BG well controlled (8) Depression Assessment/Plan: Patient has history of psych disorder with inpatient hospitalization She currently appears very depressed She is on cymbalta Will continue to monitor closely. - Current Meds Current Meds: Current Medications Generic Name Dose Route Start Last Admin Trade Name Freq PRN Reason Stop Dose Admin Acetaminophen 650 mg 12/22/16 20:00 12/26/16 03:58 Tylenol PO 650 mg Q4HR PRN Administration Pain 1 to 4 Al Hydroxide/Mg Hydroxide 30 ml 12/27/16 23:04 12/29/16 04:00 Mylanta Plus PO 30 ml Q4HR PRN Administration INDIGESTION Ascorbic Acid 500 mg 12/23/16 13:00 12/29/16 08:44 Vitamin C PO 500 mg DAILY MILA Administration Calcium Carbonate/Glycine 500 mg 12/23/16 13:00 12/29/16 08:44 Tums PO 500 mg BID MILA Administration Carvedilol 12.5 mg 12/26/16 21:00 12/29/16 08:44 Coreg PO 12.5 mg BID MILA Administration Docusate Sodium 250 - 500 mg 12/25/16 14:00 12/29/16 08:45 Colace 250mg Capsule PO Not Given DAILY MILA Famotidine 20 mg 12/23/16 09:00 12/29/16 08:45 Pepcid PO 20 mg DAILY MILA Administration Ferrous Sulfate 325 mg 12/23/16 17:00 12/29/16 08:43 Feosol PO 325 mg BIDWM MILA Administration Gabapentin 100 mg 12/22/16 23:45 12/29/16 06:17 Neurontin PO Not Given TID MILA Ceftriaxone Sodium 1 gm/ 100 mls @ 200 mls/hr 12/24/16 10:00 12/29/16 09:37 Sodium Chloride IV 200 mls/hr DAILY MILA Administration Azithromycin 500 mg/ Sodium 250 mls @ 250 mls/hr 12/24/16 11:00 12/29/16 10:07 Chloride IV 250 mls/hr DAILY@1100 MILA Administration Insulin Aspart 2 - 10 unit 12/26/16 08:00 12/29/16 13:06 Novolog SUBQ 2 unit 0800,1200,1700,2100 MILA Administration Protocol Lidocaine 1 applic 12/22/16 23:45 12/29/16 12:38 Xylocaine Ointment 5% TOP 1 applic QID MILA Administration Lisinopril 2.5 mg 12/26/16 12:07 12/29/16 08:46 Zestril PO 2.5 mg DAILY MILA Administration Magnesium Oxide 400 mg 12/29/16 11:00 12/29/16 12:34 Mag Ox PO 400 mg DAILYWM MILA Administration Mineral Oil 1 applic 12/28/16 03:25 12/28/16 05:41 Cavilon TOP 1 applic PRN PRN Administration Skin Care Multivitamins 1 tab 12/23/16 13:00 12/29/16 08:44 Theragran PO 1 tab DAILYWM MILA Administration Ondansetron HCl 4 mg 12/22/16 20:00 12/29/16 06:21 Zofran Inj IVP 4 mg Q6HR PRN Administration Nausea / Vomiting Ondansetron HCl 4 mg 12/24/16 11:47 12/26/16 14:12 Zofran Odt TL 4 mg Q4HR PRN Administration Nausea / Vomiting Polyethylene Glycol 17 gm 12/23/16 09:00 12/29/16 08:46 Miralax PO 17 gm DAILY MILA Administration Sodium Chloride 10 ml 12/22/16 22:00 12/29/16 06:13 Normal Saline Flush 0.9% IVP Not Given Q8HR MILA Sodium Chloride 10 ml 12/26/16 18:50 12/27/16 14:30 Normal Saline Flush 0.9% IVP 10 ml PRN PRN Administration NEEDED PER PROVIDER ORDERS Sodium Chloride 20 ml 12/26/16 18:50 12/28/16 20:29 Normal Saline Flush 0.9% IVP 20 ml PRN PRN Administration After TPN or Blood Draw Spironolactone 25 mg 12/23/16 13:00 12/29/16 08:46 Aldactone PO 25 mg BID MILA Administration Tramadol HCl 25 mg 12/26/16 12:06 12/27/16 13:12 Ultram PO 25 mg Q12H PRN Administration PAIN Warfarin Sodium 2.5 mg 12/28/16 08:37 12/29/16 13:37 Coumadin PO Not Given QDWARFARIN MILA - Lab Result Lab results reviewed: Yes Fish Bone Diagrams: 12/29/16 09:17 12/29/16 09:17 - EKG Results EKG Interpreted Independently: Yes - Diagnostic Imaging Results Diagnostic Imaging Results: Final report reviewed - Additional Planning Condition/Complexity: Guarded My Orders: My Active Orders 12/29/16 10:06 Admit \ Transfer \ Status [RC] ONCE 12/29/16 10:08 Vital Signs [RC] Q4HR 12/29/16 10:11 DULoxetine [Cymbalta] 60 mg PO DAILY 12/29/16 11:00 Magnesium Oxide [Mag Ox] 400 mg PO DAILYWM 12/29/16 12:00 Neutra-Phos [K-Phos Neutral] 250 mg PO TIDWM 12/30/16 05:00 CBC - COMP BLD CT W/AUTO DIFF [HEME] DAILYLAB CMP, RFLX TO IONIZED CA IF [CHEM] DAILYLAB MAGNESIUM [CHEM] DAILYLAB PHOSPHORUS [CHEM] DAILYLAB PT WITH INR [COAG] DAILYLAB 12/31/16 05:00 CBC - COMP BLD CT W/AUTO DIFF [HEME] DAILYLAB CMP, RFLX TO IONIZED CA IF [CHEM] DAILYLAB MAGNESIUM [CHEM] DAILYLAB PHOSPHORUS [CHEM] DAILYLAB PT WITH INR [COAG] DAILYLAB 01/01/17 05:00 CBC - COMP BLD CT W/AUTO DIFF [HEME] DAILYLAB CMP, RFLX TO IONIZED CA IF [CHEM] DAILYLAB MAGNESIUM [CHEM] DAILYLAB PHOSPHORUS [CHEM] DAILYLAB PT WITH INR [COAG] DAILYLAB Plan Discussed with:: Patient Time Spent: 31-60 minutes Subjective - Subjective Patient Reports: Other (She is very lethargic and appears to be depressed. She denies any fevers or chills. She denies any chest pain or shortness of breath.) Nursing Reports: Other (HYpotensive and lethargic) Objective Vital Signs: Vital Signs - 24 hr 12/28/16 12/28/16 12/28/16 14:00 15:00 16:00 Temperature 36.9 C Heart Rate [ 70 72 73 Monitoring electrodes] Respiratory 15 16 13 Rate Blood Pressure 92/63 96/69 86/72 L [Right Brachial artery] O2 Saturation 99 99 99 12/28/16 12/28/16 12/28/16 17:27 18:00 19:00 Temperature Heart Rate [ 73 75 74 Monitoring electrodes] Respiratory 13 13 14 Rate Blood Pressure 85/65 L 95/77 90/52 L [Right Brachial artery] O2 Saturation 99 99 100 12/28/16 12/28/16 12/28/16 20:00 21:00 22:00 Temperature 36.8 C Heart Rate [ 73 75 76 Monitoring electrodes] Respiratory 25 H 14 12 Rate Blood Pressure 95/71 92/55 L 93/62 [Right Brachial artery] O2 Saturation 100 96 98 12/28/16 12/29/16 12/29/16 23:00 00:00 01:00 Temperature 36.7 C Heart Rate [ 80 77 78 Monitoring electrodes] Respiratory 15 12 16 Rate Blood Pressure 95/75 102/69 97/64 [Right Brachial artery] O2 Saturation 100 99 93 12/29/16 12/29/16 12/29/16 02:00 03:00 04:00 Temperature Heart Rate [ 80 82 85 Monitoring electrodes] Respiratory 14 25 H 19 Rate Blood Pressure 119/76 116/79 122/77 [Right Brachial artery] O2 Saturation 95 95 88 L 12/29/16 12/29/16 12/29/16 05:00 06:00 07:00 Temperature 36.7 C Heart Rate [ 86 87 88 Monitoring electrodes] Respiratory 21 12 19 Rate Blood Pressure 134/84 H 134/86 H 118/83 H [Right Brachial artery] O2 Saturation 98 99 98 08/10/17 08/10/17 08/10/17 08:00 09:00 13:00 Temperature 36.4 C L 37.2 C Heart Rate [ 90 90 82 Monitoring electrodes] Respiratory 16 23 16 Rate Blood Pressure 128/79 123/74 108/68 [Right Brachial artery] O2 Saturation 99 94 95 Oxygen O2 Source Room air I&O (Last 24 Hrs): Intake and Output Totals x24h 12/27/16 12/28/16 12/29/16 23:59 23:59 23:59 Intake Total 1834 1497 826 Output Total 507 432 410 Balance 1327 1065 416 General: Other (Depressed and lethargic) HEENT: Atraumatic, PERRLA, EOMI, Mucous membr. moist/pink Neck: Supple, No JVD, No thyromegaly, +2 carotid pulse wo bruit, No LAD Lymphatic: no adenopathy Neuro: Non Focal, CN 2-12 Grossly Intact, Oriented Times 3, Other (Lethargic but arousable) Cardiovascular: Regular rate, Other (2/6 systolic mumur LLSB) Respiratory: Chest non-tender, No respiratory distress, Breath sounds nml Abdomen: Normal bowel sounds, Soft, No tenderness, No hepatospenomegaly Extremities: No clubbing, No cyanosis, No edema, Normal pulses Skin: No rashes, No breakdown - Results Results: Laboratory Results WBC 13.6 x10^3/uL (4.8-10.8) H 12/29/16 09:17 RBC 4.48 10^6/uL (4.20-5.40) 12/29/16 09:17 Hgb 12.9 g/dL (12.0-16.0) 12/29/16 09:17 Hct 41.0 % (37.0-47.0) 12/29/16 09:17 MCV 91.5 fL (81.0-99.0) 12/29/16:17 MCH 28.7 pg (27.0-31.0) 12/29/16 09:17 MCHC 31.4 g/dL (32.0-36.0) L 12/29/16 09:17 RDW 18.4 % (12.0-15.0) H 12/29/16 09:17 Plt Count 168 10^3/uL (130-450) 12/29/16 09:17 MPV 8.3 fL (7.9-10.8) 12/29/16 09: Neut # 11.9 10^3/uL (1.5-6.6) H 12/29/16 09:17 Lymph # 0.6 10^3/uL (1.5-3.5) L 12/29/16 09:17 [place] # 0.9 10^3/uL (0.0-1.0) 12/29/16 09: Eos # 0.0 10^3/uL (0.0-0.7) 12/29/16 09: Baso # 0.1 10^3/uL (0.0-0.1) 12/29/16 09: Absolute Nucleated RBC 0.01 x10^3/uL 12/29/16 09: Nucleated RBCs 0.1 /100WBC 12/29/16 09:17 PT 37.1 secs (9.9-12.6) H 12/29/16 09:17 INR 3.3 (0.8-1.2) H 12/29/16 09:17 Whole Blood INR 1.4 (0.8-1.2) H 12/26/16 05:06 VBG pH 7.371 (7.31-7.41) 12/29/16 09:17 Ionized Calcium 1.12 mmol/L (1.15-1.33) L 12/29/16 09:17 Sodium 132 mmol/L (135-145) L 12/29/16 09:17 Potassium 4.7 mmol/L (3.5-5.0) 12/29/16 09:17 Chloride 100 mmol/L (101-111) L 12/29/16 09:17 Carbon Dioxide 27 mmol/L (21-32) 12/29/16 09:17 Anion Gap 5.0 (6-13) L 12/29/16 09:17 BUN 50 mg/dL (6-20) H 12/29/16 09:17 Creatinine 0.8 mg/dL (0.4-1.0) 12/29/16 09:17 Estimated GFR (MDRD) 73 (>89) L 12/29/16 09:17 Glucose 184 mg/dL (70-100) H 12/29/16 09:17 POC Whole Bld Glucose 162 mg/dL (70 - 100) H 12/29/16 12:58 Glycated Hemoglobin 8.3 % (4.6-6.2) H 12/22/16 18:10 Estim Average Glucose 192 (70-100) H 12/22/16 18:10 Lactic Acid 1.5 mmol/L (0.5-2.2) 12/26/16 04:16 Calcium 7.6 mg/dL (8.5-10.3) L 12/29/16 09:17 Ionized Calcium YES 12/29/16 09:17 Phosphorus 1.7 mg/dL (2.5-4.6) L 12/29/16 09:17 Magnesium 1.6 mg/dL (1.7-2.8) L 12/29/16 09:17 Total Bilirubin 0.7 mg/dL (0.2-1.0) 12/29/16 09:17 AST 17 IU/L (10-42) 12/29/16 09:17 ALT 20 IU/L (10-60) 12/29/16 09:17 Alkaline Phosphatase 64 IU/L (42-121) 12/29/16 09:17 Total Creatine Kinase 108 IU/L (22-269) 12/22/16 18:10 Troponin I < 0.04 ng/mL (<0.49) 12/26/16 10:08 B-Natriuretic Peptide 1899 pg/mL (5-100) H 12/26/16 10:08 Total Protein 4.7 g/dL (6.7-8.2) L 12/29/16 09:17 Albumin 1.7 g/dL (3.2-5.5) L 12/29/16 09:17 Globulin 3.0 g/dL (2.1-4.2) 12/29/16 09:17 Albumin/Globulin Ratio 0.6 (1.0-2.2) L 12/29/16 09:17 Lipase 12 U/L (22-51) L 12/22/16 16:30 TSH 7.66 uIU/mL (0.34-5.60) H 12/25/16 16:35 Cortisol AM Sample 26.2 ug/dL 12/25/16 08:52 Urine Color YELLOW 12/22/16 22:00 Urine Clarity CLOUDY (CLEAR) 12/22/16 22:00 Urine pH 6.0 PH (5.0-7.5) 12/22/16 22:00 Ur Specific Carlyle 1.020 (1.002-1.030) 12/22/16 22:00 Urine Protein 100 mg/dL (NEGATIVE) H 12/22/16 22:00 Urine Glucose (UA) NEGATIVE mg/dL (NEGATIVE) 12/22/16 22:00 Urine Ketones NEGATIVE mg/dL (NEGATIVE) 12/22/16 22:00 Urine Occult Blood TRACE-LYSE (NEGATIVE) 12/22/16 22:00 Urine Nitrite NEGATIVE (NEGATIVE) 12/22/16 22:00 Urine Bilirubin NEGATIVE (NEGATIVE) 12/22/16 22:00 Urine Urobilinogen 0.2 (NORMAL) E.U./dL (NORMAL) 12/22/16 22:00 Ur Leukocyte Esterase NEGATIVE (NEGATIVE) 12/22/16 22:00 Urine RBC 0-5 /HPF (0-5) 12/22/16 22:00 Urine WBC 0-3 /HPF (0-5) 12/22/16 22:00 Ur Squamous Epith Cells MANY Squamous (<= Few) H 12/22/16 22:00 Amorphous Sediment Marked /LPF 12/22/16 22:00 Urine Bacteria Many /HPF (None Seen) H 12/22/16 22:00 Urine Culture Comments NOT INDICATED 12/22/16 22:00 Salicylates < 6.0 mg/dL 12/22/16 16:30 Urine Opiates Screen NEGATIVE (NEGATIVE) 12/22/16 22:00 Ur Oxycodone Screen NEGATIVE (NEGATIVE) 12/22/16 22:00 Urine Methadone Screen NEGATIVE (NEGATIVE) 12/22/16 22:00 Ur Propoxyphene Screen NEGATIVE (NEGATIVE) 12/22/16 22:00 Acetaminophen < 10 ug/mL (10-30) L 12/22/16 16:30 Ur Barbiturates Screen NEGATIVE (NEGATIVE) 12/22/16 22:00 Ur Tricyclics Screen NEGATIVE (NEGATIVE) 12/22/16 22:00 Ur Phencyclidine Scrn NEGATIVE (NEGATIVE) 12/22/16 22:00 Ur Amphetamine Screen NEGATIVE (NEGATIVE) 12/22/16 22:00 U Methamphetamines Scrn NEGATIVE (NEGATIVE) 12/22/16 22:00 U Benzodiazepines Scrn NEGATIVE (NEGATIVE) 12/22/16 22:00 Urine Cocaine Screen NEGATIVE (NEGATIVE) 12/22/16 22:00 U Cannabinoids Screen POSITIVE (NEGATIVE) H 12/22/16 22:00 Ethyl Alcohol < 5.0 mg/dL 12/22/16 16:30 - Procedures Procedures: Procedures CONTINUOUS INVASIVE MECHANICAL VENTILATION <96 CONSEC HRS (01/14/15)
[2016-12-29] MEDS: NEUTRA-PHOS 250 MG TABLET PO SCH ×3 (14:10→22:18)
--- NOTE | 2016-12-29 14:55 | PROVIDER PROGRESS NOTE ---
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 and was on coumadin but in April of 2016 she stopped her coumadin for unknown reason and now has developed more emboli Patients INR is 5.0 today Stop lovenox and continue coumadin (2) Right ventricular apical thrombus Assessment/Plan: On echocardiogram patient found to have 0.6 x 1.8 cm apical thrombus with a translucent center meaning that it is subacute Patient likely having absence attacks and hypotension secondary to these cardiac thrombi in right and left ventricle Hypotension is likely due to reduced EF of 20% in conjunction with bilateral thrombi that may be effecting flow of blood through the heart Patients also likely having transient absence attacks secondary to the thrombus as he is likely having TIAs due to emboli 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 WBC is elevated was 18.5 yesterday and down to 15.5 today Continue IV ceftriaxone and azithromycin day 5 Improving (4) Hypotension Assessment/Plan: Patient had another sudden drop in her BP with lethargy around 4pm yesterday she responded to IVF but BP still no higher than 80-90 systolic No evidence for AMI, sepsis, GI bleed or dehydration as cause of sudden hypotension. Mostly likely this is occurring secondary to CHF with very low EF and cardiac thrombus causing decreased blood flow through the heart Will continue to monitor in ICU. (5) CVA Assessment/Plan: Patient had another event today with drop in her BP MRI suggests a linear and wedge-shaped focus of signal abnormality in the right superior temporal gyrus extending to superior temporal sulcus. Finding suggest a late acute or subacute infarct. No associated hemorrhage Patient likely having TIAs secondary to cardiac thrombus and she likely had a recent stoke Patient on coumadin now with therapeutic dose Will start ASA and lipitor PT to evaluate once more stable (6) Ischemic cardiomyopathy Assessment/Plan: Echo was remarkable for 4-chamber dilitation, LVEF 20%, large ovoid clots in the apex of the LV and the RV and probably in the descending aorta/abdominal aorta. Past admissions were reviewed and LVEF has been this low with Hx of CAD and MIs. Metoprolol Tartrate changed to Carvedilol 12.5 mg po bid, continued RAVINDER but lower the dose due to low BP, continued Spironolactone and ASA. Placed on coumadin for thrombus. HOld bP meds today as BP continues to run low (7) DM2 (diabetes mellitus, type 2) Qualifiers: Diabetes mellitus complication detail: with other neurological complication Assessment/Plan: SS insulin and dm diet BG well controlled (8) Depression Assessment/Plan: Patient has history of psych disorder with inpatient hospitalization She currently appears very depressed She is on cymbalta Will continue to monitor closely. Social work consult - Current Meds Current Meds: Current Medications Generic Name Dose Route Start Last Admin Trade Name Freq PRN Reason Stop Dose Admin Acetaminophen 650 mg 12/22/16 20:00 12/26/16 03:58 Tylenol PO 650 mg Q4HR PRN Administration Pain 1 to 4 Al Hydroxide/Mg Hydroxide 30 ml 12/27/16 23:04 12/29/16 04:00 Mylanta Plus PO 30 ml Q4HR PRN Administration INDIGESTION Ascorbic Acid 500 mg 12/23/16 13:00 12/29/16 08:44 Vitamin C PO 500 mg DAILY MILA Administration Calcium Carbonate/Glycine 500 mg 12/23/16 13:00 12/29/16 08:44 Tums PO 500 mg BID MILA Administration Carvedilol 12.5 mg 12/26/16 21:00 12/29/16 08:44 Coreg PO 12.5 mg BID MILA Administration Docusate Sodium 250 - 500 mg 12/25/16 14:00 12/29/16 08:45 Colace 250mg Capsule PO Not Given DAILY MILA Famotidine 20 mg 12/23/16 09:00 12/29/16 08:45 Pepcid PO 20 mg DAILY MILA Administration Ferrous Sulfate 325 mg 12/23/16 17:00 12/29/16 08:43 Feosol PO 325 mg BIDWM MILA Administration Gabapentin 100 mg 12/22/16 23:45 12/29/16 14:13 Neurontin PO 100 mg TID MILA Administration Ceftriaxone Sodium 1 gm/ 100 mls @ 200 mls/hr 12/24/16 10:00 12/29/16 09:37 Sodium Chloride IV 200 mls/hr DAILY MILA Administration Azithromycin 500 mg/ Sodium 250 mls @ 250 mls/hr 12/24/16 11:00 12/29/16 10:07 Chloride IV 250 mls/hr DAILY@1100 MILA Administration Insulin Aspart 2 - 10 unit 12/26/16 08:00 12/29/16 13:06 Novolog SUBQ 2 unit 0800,1200,1700,2100 MILA Administration Protocol Lidocaine 1 applic 12/22/16 23:45 12/29/16 12:38 Xylocaine Ointment 5% TOP 1 applic QID MILA Administration Lisinopril 2.5 mg 12/26/16 12:07 12/29/16 08:46 Zestril PO 2.5 mg DAILY MILA Administration Magnesium Oxide 400 mg 12/29/16 11:00 12/29/16 12:34 Mag Ox PO 400 mg DAILYWM MILA Administration Mineral Oil 1 applic 12/28/16 03:25 12/28/16 05:41 Cavilon TOP 1 applic PRN PRN Administration Skin Care Multivitamins 1 tab 12/23/16 13:00 12/29/16 08:44 Theragran PO 1 tab DAILYWM MILA Administration Ondansetron HCl 4 mg 12/22/16 20:00 12/29/16 06:21 Zofran Inj IVP 4 mg Q6HR PRN Administration Nausea / Vomiting Ondansetron HCl 4 mg 12/24/16 11:47 12/26/16 14:12 Zofran Odt TL 4 mg Q4HR PRN Administration Nausea / Vomiting Polyethylene Glycol 17 gm 12/23/16 09:00 12/29/16 08:46 Miralax PO 17 gm DAILY MILA Administration Sodium Chloride 10 ml 12/22/16 22:00 12/29/16 14:08 Normal Saline Flush 0.9% IVP 10 ml Q8HR MILA Administration Sodium Chloride 10 ml 12/26/16 18:50 12/27/16 14:30 Normal Saline Flush 0.9% IVP 10 ml PRN PRN Administration NEEDED PER PROVIDER ORDERS Sodium Chloride 20 ml 12/26/16 18:50 12/28/16 20:29 Normal Saline Flush 0.9% IVP 20 ml PRN PRN Administration After TPN or Blood Draw Sodium Phosphate 250 mg 12/29/16 12:00 12/29/16 14:10 K-Phos Neutral PO 250 mg TIDWM MILA Administration Spironolactone 25 mg 12/23/16 13:00 12/29/16 08:46 Aldactone PO 25 mg BID MILA Administration Tramadol HCl 25 mg 12/26/16 12:06 12/27/16 13:12 Ultram PO 25 mg Q12H PRN Administration PAIN Warfarin Sodium 2.5 mg 12/28/16 08:37 12/29/16 13:37 Coumadin PO Not Given QDWARFARIN MILA - Lab Result Lab results reviewed: Yes Fish Bone Diagrams: 12/29/16 09:17 12/29/16 09:17 - EKG Results EKG Interpreted Independently: Yes - Diagnostic Imaging Results Diagnostic Imaging Results: Final report reviewed - Additional Planning Condition/Complexity: Guarded My Orders: My Active Orders 12/29/16 10:08 Vital Signs [RC] Q4HR 12/29/16 10:11 DULoxetine [Cymbalta] 60 mg PO DAILY 12/29/16 11:00 Magnesium Oxide [Mag Ox] 400 mg PO DAILYWM 12/29/16 12:00 Neutra-Phos [K-Phos Neutral] 250 mg PO TIDWM 12/29/16 15:00 Aspirin [Diana] 81 mg PO DAILYWM 12/29/16 21:00 Atorvastatin [Lipitor] 80 mg PO QPM 12/30/16 05:00 CBC - COMP BLD CT W/AUTO DIFF [HEME] DAILYLAB CMP, RFLX TO IONIZED CA IF [CHEM] DAILYLAB MAGNESIUM [CHEM] DAILYLAB PHOSPHORUS [CHEM] DAILYLAB PT WITH INR [COAG] DAILYLAB 12/31/16 05:00 CBC - COMP BLD CT W/AUTO DIFF [HEME] DAILYLAB CMP, RFLX TO IONIZED CA IF [CHEM] DAILYLAB MAGNESIUM [CHEM] DAILYLAB PHOSPHORUS [CHEM] DAILYLAB PT WITH INR [COAG] DAILYLAB 01/01/17 05:00 CBC - COMP BLD CT W/AUTO DIFF [HEME] DAILYLAB CMP, RFLX TO IONIZED CA IF [CHEM] DAILYLAB MAGNESIUM [CHEM] DAILYLAB PHOSPHORUS [CHEM] DAILYLAB PT WITH INR [COAG] DAILYLAB Consult/Specialty: PT Plan Discussed with:: Patient Time Spent: 31-60 minutes Subjective - Subjective Patient Reports: Other (Drowsy but easily arousable. Does not want to talk to me. She denies any chest pain, shortness of breath, cough, fevers or chills. She states she feels weak and depressed.) Nursing Reports: No Complaints Objective Vital Signs: Vital Signs - 24 hr 12/28/16 12/28/16 12/28/16 15:00 16:00 17:27 Temperature 36.9 C Heart Rate [ 72 73 73 Monitoring electrodes] Respiratory 16 13 13 Rate Blood Pressure 96/69 86/72 L 85/65 L [Right Brachial artery] O2 Saturation 99 99 99 12/28/16 12/28/16 12/28/16 18:00 19:00 20:00 Temperature 36.8 C Heart Rate [ 75 74 73 Monitoring electrodes] Respiratory 13 14 25 H Rate Blood Pressure 95/77 90/52 L 95/71 [Right Brachial artery] O2 Saturation 99 100 100 12/28/16 12/28/16 12/28/16 21:00 22:00 23:00 Temperature 36.7 C Heart Rate [ 75 76 80 Monitoring electrodes] Respiratory 14 12 15 Rate Blood Pressure 92/55 L 93/62 95/75 [Right Brachial artery] O2 Saturation 96 98 100 12/29/16 12/29/16 12/29/16 00:00 01:00 02:00 Temperature Heart Rate [ 77 78 80 Monitoring electrodes] Respiratory 12 16 14 Rate Blood Pressure 102/69 97/64 119/76 [Right Brachial artery] O2 Saturation 99 93 95 12/29/16 12/29/16 12/29/16 03:00 04:00 05:00 Temperature Heart Rate [ 82 85 86 Monitoring electrodes] Respiratory 25 H 19 21 Rate Blood Pressure 116/79 122/77 134/84 H [Right Brachial artery] O2 Saturation 95 88 L 98 12/29/16 12/29/16 12/29/16 06:00 07:00 08:00 Temperature 36.7 C 36.4 C L Heart Rate [ 87 88 90 Monitoring electrodes] Respiratory 12 19 16 Rate Blood Pressure 134/86 H 118/83 H 128/79 [Right Brachial artery] O2 Saturation 99 98 99 12/29/16 12/29/16 09:00 13:00 Temperature 37.2 C Heart Rate [ 90 82 Monitoring electrodes] Respiratory 23 16 Rate Blood Pressure 123/74 108/68 [Right Brachial artery] O2 Saturation 94 95 Oxygen O2 Source Room air I&O (Last 24 Hrs): Intake and Output Totals x24h 12/27/16 12/28/16 12/29/16 23:59 23:59 23:59 Intake Total 1834 1497 826 Output Total 507 432 410 Balance 1327 1065 416 General: Oriented x3, Cooperative, Other (Very depressed and sleepy) HEENT: Atraumatic, PERRLA, EOMI, Other (Dry mucus membranes) Neck: Supple, No JVD, No thyromegaly, +2 carotid pulse wo bruit, No LAD Lymphatic: no adenopathy Neuro: Alert, Non Focal, CN 2-12 Grossly Intact, Oriented Times 3 Cardiovascular: Regular rate, Other (Systolic murmur) Respiratory: Chest non-tender, No respiratory distress, Breath sounds nml Abdomen: Normal bowel sounds, Soft, No tenderness, No hepatospenomegaly Extremities: No clubbing, No cyanosis, No edema, Normal pulses, Other ( Bilateral BKA) Skin: No rashes, No breakdown - Results Results: Laboratory Results WBC 13.6 x10^3/uL (4.8-10.8) H 12/29/16:17 RBC 4.48 10^6/uL (4.20-5.40) 12/29/16 09:17 Hgb 12.9 g/dL (12.0-16.0) 12/29/16 09:17 Hct 41.0 % (37.0-47.0) 12/29/16 09:17 MCV 91.5 fL (81.0-99.0) 12/29/16 09:17 MCH 28.7 pg (27.0-31.0) 12/29/16 09:17 MCHC 31.4 g/dL (32.0-36.0) L 12/29/16:17 RDW 18.4 % (12.0-15.0) H 12/29/16 09:17 Plt Count 168 10^3/uL (130-450) 12/29/16 09:17 MPV 8.3 fL (7.9-10.8) 12/29/16 09:17 Neut # 11.9 10^3/uL (1.5-6.6) H 12/29/16 09:17 Lymph # 0.6 10^3/uL (1.5-3.5) L 12/29/16 09:17 Charles Mix # 0.9 10^3/uL (0.0-1.0) 12/29/16 09:17 Eos # 0.0 10^3/uL (0.0-0.7) 12/29/16 09: Baso # 0.1 10^3/uL (0.0-0.1) 12/29/16 09:17 Absolute Nucleated RBC 0.01 x10^3/uL 12/29/16 09: Nucleated RBCs 0.1 /100WBC 12/29/16 09:17 PT 37.1 secs (9.9-12.6) H 12/29/16 09:17 INR 3.3 (0.8-1.2) H 12/29/16 09:17 Whole Blood INR 1.4 (0.8-1.2) H 12/26/16 05:06 VBG pH 7.371 (7.31-7.41) 12/29/16 09:17 Ionized Calcium 1.12 mmol/L (1.15-1.33) L 12/29/16 09:17 Sodium 132 mmol/L (135-145) L 12/29/16 09:17 Potassium 4.7 mmol/L (3.5-5.0) 12/29/16 09:17 Chloride 100 mmol/L (101-111) L 12/29/16 09:17 Carbon Dioxide 27 mmol/L (21-32) 12/29/16 09:17 Anion Gap 5.0 (6-13) L 12/29/16 09:17 BUN 50 mg/dL (6-20) H 12/29/16 09:17 Creatinine 0.8 mg/dL (0.4-1.0) 12/29/16 09:17 Estimated GFR (MDRD) 73 (>89) L 12/29/16 09:17 Glucose 184 mg/dL (70-100) H 12/29/16 09:17 POC Whole Bld Glucose 162 mg/dL (70 - 100) H 12/29/16 12:58 Glycated Hemoglobin 8.3 % (4.6-6.2) H 12/22/16 18:10 Estim Average Glucose 192 (70-100) H 12/22/16 18:10 Lactic Acid 1.5 mmol/L (0.5-2.2) 12/26/16 04:16 Calcium 7.6 mg/dL (8.5-10.3) L 12/29/16 09:17 Ionized Calcium YES 12/29/16 09:17 Phosphorus 1.7 mg/dL (2.5-4.6) L 12/29/16 09:17 Magnesium 1.6 mg/dL (1.7-2.8) L 12/29/16 09:17 Total Bilirubin 0.7 mg/dL (0.2-1.0) 12/29/16 09:17 AST 17 IU/L (10-42) 12/29/16 09:17 ALT 20 IU/L (10-60) 12/29/16 09:17 Alkaline Phosphatase 64 IU/L (42-121) 12/29/16 09:17 Total Creatine Kinase 108 IU/L (22-269) 12/22/16 18:10 Troponin I < 0.04 ng/mL (<0.49) 12/26/16 10:08 B-Natriuretic Peptide 1899 pg/mL (5-100) H 12/26/16 10:08 Total Protein 4.7 g/dL (6.7-8.2) L 12/29/16 09:17 Albumin 1.7 g/dL (3.2-5.5) L 12/29/16 09:17 Globulin 3.0 g/dL (2.1-4.2) 12/29/16 09:17 Albumin/Globulin Ratio 0.6 (1.0-2.2) L 12/29/16 09:17 Lipase 12 U/L (22-51) L 12/22/16 16:30 TSH 7.66 uIU/mL (0.34-5.60) H 12/25/16 16:35 Cortisol AM Sample 26.2 ug/dL 12/25/16 08:52 Urine Color YELLOW 12/22/16 22:00 Urine Clarity CLOUDY (CLEAR) 12/22/16 22:00 Urine pH 6.0 PH (5.0-7.5) 12/22/16 22:00 Ur Specific Recluse 1.020 (1.002-1.030) 12/22/16 22:00 Urine Protein 100 mg/dL (NEGATIVE) H 12/22/16 22:00 Urine Glucose (UA) NEGATIVE mg/dL (NEGATIVE) 12/22/16 22:00 Urine Ketones NEGATIVE mg/dL (NEGATIVE) 12/22/16 22:00 Urine Occult Blood TRACE-LYSE (NEGATIVE) 12/22/16 22:00 Urine Nitrite NEGATIVE (NEGATIVE) 12/22/16 22:00 Urine Bilirubin NEGATIVE (NEGATIVE) 12/22/16 22:00 Urine Urobilinogen 0.2 (NORMAL) E.U./dL (NORMAL) 12/22/16 22:00 Ur Leukocyte Esterase NEGATIVE (NEGATIVE) 12/22/16 22:00 Urine RBC 0-5 /HPF (0-5) 12/22/16 22:00 Urine WBC 0-3 /HPF (0-5) 12/22/16 22:00 Ur Squamous Epith Cells MANY Squamous (<= Few) H 12/22/16 22:00 Amorphous Sediment Marked /LPF 12/22/16 22:00 Urine Bacteria Many /HPF (None Seen) H 12/22/16 22:00 Urine Culture Comments NOT INDICATED 12/22/16 22:00 Salicylates < 6.0 mg/dL 12/22/16 16:30 Urine Opiates Screen NEGATIVE (NEGATIVE) 12/22/16 22:00 Ur Oxycodone Screen NEGATIVE (NEGATIVE) 12/22/16 22:00 Urine Methadone Screen NEGATIVE (NEGATIVE) 12/22/16 22:00 Ur Propoxyphene Screen NEGATIVE (NEGATIVE) 12/22/16 22:00 Acetaminophen < 10 ug/mL (10-30) L 12/22/16 16:30 Ur Barbiturates Screen NEGATIVE (NEGATIVE) 12/22/16 22:00 Ur Tricyclics Screen NEGATIVE (NEGATIVE) 12/22/16 22:00 Ur Phencyclidine Scrn NEGATIVE (NEGATIVE) 12/22/16 22:00 Ur Amphetamine Screen NEGATIVE (NEGATIVE) 12/22/16 22:00 U Methamphetamines Scrn NEGATIVE (NEGATIVE) 12/22/16 22:00 U Benzodiazepines Scrn NEGATIVE (NEGATIVE) 12/22/16 22:00 Urine Cocaine Screen NEGATIVE (NEGATIVE) 12/22/16 22:00 U Cannabinoids Screen POSITIVE (NEGATIVE) H 12/22/16 22:00 Ethyl Alcohol < 5.0 mg/dL 12/22/16 16:30 - Procedures Procedures: Procedures CONTINUOUS INVASIVE MECHANICAL VENTILATION <96 CONSEC HRS (01/14/15)
[2016-12-29] MEDS ORDERED: ASPIRIN 325 MG TABLET PO SCH (15:00)
--- NOTE | 2016-12-29 15:25 | PROVIDER PROGRESS NOTE ---
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 and was on coumadin but in April of 2016 she stopped her coumadin for unknown reason and now has developed more emboli Patients INR is 3.3 today Continue coumadin (2) Right ventricular apical thrombus Assessment/Plan: On echocardiogram patient found to have 0.6 x 1.8 cm apical thrombus with a translucent center meaning that it is subacute Patient likely having absence attacks and hypotension secondary to these cardiac thrombi in right and left ventricle Hypotension is likely due to reduced EF of 20% in conjunction with bilateral thrombi that may be effecting flow of blood through the heart Patients also likely having transient absence attacks secondary to the thrombus as he is likely having TIAs due to emboli 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 WBC is elevated was 18.5 and down to 13.6 today Continue IV ceftriaxone and azithromycin day 6 Improving (4) Hypotension Assessment/Plan: BP improved this morning No evidence for AMI, sepsis, GI bleed or dehydration as cause of sudden hypotension. Mostly likely this is occurring secondary to CHF with very low EF and cardiac thrombus causing decreased blood flow through the heart Improving Transfer to Med/Surg today (5) CVA Assessment/Plan: Patient had another event today with drop in her BP MRI suggests a linear and wedge-shaped focus of signal abnormality in the right superior temporal gyrus extending to superior temporal sulcus. Finding suggest a late acute or subacute infarct. No associated hemorrhage Patient likely having TIAs secondary to cardiac thrombus and she likely had a recent stoke Patient on coumadin now with therapeutic dose Started on ASA and lipitor PT to evaluate today (6) Ischemic cardiomyopathy Assessment/Plan: Echo was remarkable for 4-chamber dilitation, LVEF 20%, large ovoid clots in the apex of the LV and the RV and probably in the descending aorta/abdominal aorta. Past admissions were reviewed and LVEF has been this low with Hx of CAD and MIs. Metoprolol Tartrate changed to Carvedilol 12.5 mg po bid, continued RAVINDER but lower the dose due to low BP, continued Spironolactone and ASA. Placed on coumadin for thrombus. HOld bP meds today as BP continues to run low (7) DM2 (diabetes mellitus, type 2) Qualifiers: Diabetes mellitus complication detail: with other neurological complication Assessment/Plan: SS insulin and dm diet BG well controlled (8) Depression Assessment/Plan: Patient has history of psych disorder with inpatient hospitalization She currently appears very depressed Will increase cymbalta dose today Social work consult Patient finally appears to be more stable and maybe 1-2 days from discharge if she continues to improve. - Current Meds Current Meds: Current Medications Generic Name Dose Route Start Last Admin Trade Name Freq PRN Reason Stop Dose Admin Acetaminophen 650 mg 12/22/16 20:00 12/26/16 03:58 Tylenol PO 650 mg Q4HR PRN Administration Pain 1 to 4 Al Hydroxide/Mg Hydroxide 30 ml 12/27/16 23:04 12/29/16 04:00 Mylanta Plus PO 30 ml Q4HR PRN Administration INDIGESTION Ascorbic Acid 500 mg 12/23/16 13:00 12/29/16 08:44 Vitamin C PO 500 mg DAILY MILA Administration Calcium Carbonate/Glycine 500 mg 12/23/16 13:00 12/29/16 08:44 Tums PO 500 mg BID MILA Administration Carvedilol 12.5 mg 12/26/16 21:00 12/29/16 08:44 Coreg PO 12.5 mg BID MILA Administration Docusate Sodium 250 - 500 mg 12/25/16 14:00 12/29/16 08:45 Colace 250mg Capsule PO Not Given DAILY MILA Famotidine 20 mg 12/23/16 09:00 12/29/16 08:45 Pepcid PO 20 mg DAILY MILA Administration Ferrous Sulfate 325 mg 12/23/16 17:00 12/29/16 08:43 Feosol PO 325 mg BIDWM MILA Administration Gabapentin 100 mg 12/22/16 23:45 12/29/16 14:13 Neurontin PO 100 mg TID MILA Administration Ceftriaxone Sodium 1 gm/ 100 mls @ 200 mls/hr 12/24/16 10:00 12/29/16 09:37 Sodium Chloride IV 200 mls/hr DAILY MILA Administration Azithromycin 500 mg/ Sodium 250 mls @ 250 mls/hr 12/24/16 11:00 12/29/16 10:07 Chloride IV 250 mls/hr DAILY@1100 MILA Administration Insulin Aspart 2 - 10 unit 12/26/16 08:00 12/29/16 13:06 Novolog SUBQ 2 unit 0800,1200,1700,2100 MILA Administration Protocol Lidocaine 1 applic 12/22/16 23:45 12/29/16 12:38 Xylocaine Ointment 5% TOP 1 applic QID MILA Administration Lisinopril 2.5 mg 12/26/16 12:07 12/29/16 08:46 Zestril PO 2.5 mg DAILY MILA Administration Magnesium Oxide 400 mg 12/29/16 11:00 12/29/16 12:34 Mag Ox PO 400 mg DAILYWM MILA Administration Mineral Oil 1 applic 12/28/16 03:25 12/28/16 05:41 Cavilon TOP 1 applic PRN PRN Administration Skin Care Multivitamins 1 tab 12/23/16 13:00 12/29/16 08:44 Theragran PO 1 tab DAILYWM MILA Administration Ondansetron HCl 4 mg 12/22/16 20:00 12/29/16 06:21 Zofran Inj IVP 4 mg Q6HR PRN Administration Nausea / Vomiting Ondansetron HCl 4 mg 12/24/16 11:47 12/26/16 14:12 Zofran Odt TL 4 mg Q4HR PRN Administration Nausea / Vomiting Polyethylene Glycol 17 gm 12/23/16 09:00 12/29/16 08:46 Miralax PO 17 gm DAILY MILA Administration Sodium Chloride 10 ml 12/22/16 22:00 12/29/16 14:08 Normal Saline Flush 0.9% IVP 10 ml Q8HR MILA Administration Sodium Chloride 10 ml 12/26/16 18:50 12/27/16 14:30 Normal Saline Flush 0.9% IVP 10 ml PRN PRN Administration NEEDED PER PROVIDER ORDERS Sodium Chloride 20 ml 12/26/16 18:50 12/28/16 20:29 Normal Saline Flush 0.9% IVP 20 ml PRN PRN Administration After TPN or Blood Draw Sodium Phosphate 250 mg 12/29/16 12:00 12/29/16 14:10 K-Phos Neutral PO 250 mg TIDWM MILA Administration Spironolactone 25 mg 12/23/16 13:00 12/29/16 08:46 Aldactone PO 25 mg BID MILA Administration Tramadol HCl 25 mg 12/26/16 12:06 12/27/16 13:12 Ultram PO 25 mg Q12H PRN Administration PAIN Warfarin Sodium 2.5 mg 12/28/16 08:37 12/29/16 13:37 Coumadin PO Not Given QDWARFARIN MILA - Lab Result Lab results reviewed: Yes Fish Bone Diagrams: 12/29/16 09:17 12/29/16 09:17 - EKG Results EKG Interpreted Independently: Yes - Diagnostic Imaging Results Diagnostic Imaging Results: Final report reviewed - Additional Planning Condition/Complexity: Improved My Orders: My Active Orders 12/29/16 10:08 Vital Signs [RC] Q4HR 12/29/16 10:11 DULoxetine [Cymbalta] 60 mg PO DAILY 12/29/16 11:00 Magnesium Oxide [Mag Ox] 400 mg PO DAILYWM 12/29/16 12:00 Neutra-Phos [K-Phos Neutral] 250 mg PO TIDWM 12/29/16 15:00 Aspirin [Diana] 81 mg PO DAILYWM 12/29/16 21:00 Atorvastatin [Lipitor] 80 mg PO QPM 12/30/16 05:00 CBC - COMP BLD CT W/AUTO DIFF [HEME] DAILYLAB CMP, RFLX TO IONIZED CA IF [CHEM] DAILYLAB MAGNESIUM [CHEM] DAILYLAB PHOSPHORUS [CHEM] DAILYLAB PT WITH INR [COAG] DAILYLAB 12/31/16 05:00 CBC - COMP BLD CT W/AUTO DIFF [HEME] DAILYLAB CMP, RFLX TO IONIZED CA IF [CHEM] DAILYLAB MAGNESIUM [CHEM] DAILYLAB PHOSPHORUS [CHEM] DAILYLAB PT WITH INR [COAG] DAILYLAB 01/01/17 05:00 CBC - COMP BLD CT W/AUTO DIFF [HEME] DAILYLAB CMP, RFLX TO IONIZED CA IF [CHEM] DAILYLAB MAGNESIUM [CHEM] DAILYLAB PHOSPHORUS [CHEM] DAILYLAB PT WITH INR [COAG] DAILYLAB Consult/Specialty: PT Plan Discussed with:: Patient Time Spent: 31-60 minutes Subjective - Subjective Patient Reports: Other (Still very sleepy but easy to arouse. She admits to being depressed. She also feels weak. Otherwise denies any fevers, dizziness, chills, chest pain or shortness of breath.) Nursing Reports: No Complaints Objective Vital Signs: Vital Signs - 24 hr 12/28/16 12/28/16 12/28/16 16:00 17:27 18:00 Temperature 36.9 C Heart Rate [ 73 73 75 Monitoring electrodes] Respiratory 13 13 13 Rate Blood Pressure 86/72 L 85/65 L 95/77 [Right Brachial artery] O2 Saturation 99 99 99 12/28/16 12/28/16 12/28/16 19:00 20:00 21:00 Temperature 36.8 C Heart Rate [ 74 73 75 Monitoring electrodes] Respiratory 14 25 H 14 Rate Blood Pressure 90/52 L 95/71 92/55 L [Right Brachial artery] O2 Saturation 100 100 96 12/28/16 12/28/16 12/29/16 22:00 23:00 00:00 Temperature 36.7 C Heart Rate [ 76 80 77 Monitoring electrodes] Respiratory 12 15 12 Rate Blood Pressure 93/62 95/75 102/69 [Right Brachial artery] O2 Saturation 98 100 99 12/29/16 12/29/16 12/29/16 01:00 02:00 03:00 Temperature Heart Rate [ 78 80 82 Monitoring electrodes] Respiratory 16 14 25 H Rate Blood Pressure 97/64 119/76 116/79 [Right Brachial artery] O2 Saturation 93 95 95 12/29/16 12/29/16 12/29/16 04:00 05:00 06:00 Temperature 36.7 C Heart Rate [ 85 86 87 Monitoring electrodes] Respiratory 19 21 12 Rate Blood Pressure 122/77 134/84 H 134/86 H [Right Brachial artery] O2 Saturation 88 L 98 99 12/29/16 12/29/16 12/29/16 07:00 08:00 09:00 Temperature 36.4 C L Heart Rate [ 88 90 90 Monitoring electrodes] Respiratory 19 16 23 Rate Blood Pressure 118/83 H 128/79 123/74 [Right Brachial artery] O2 Saturation 98 99 94 12/29/16 12/29/16 13:00 14:55 Temperature 37.2 C 36.8 C Heart Rate [ 82 82 Monitoring electrodes] Respiratory 16 18 Rate Blood Pressure 108/68 119/75 [Right Brachial artery] O2 Saturation 95 100 Oxygen O2 Source Room air I&O (Last 24 Hrs): Intake and Output Totals x24h 12/27/16 12/28/16 12/29/16 23:59 23:59 23:59 Intake Total 1834 1497 826 Output Total 507 432 410 Balance 1327 1065 416 General: Alert, Oriented x3, Cooperative, No acute distress, Other (Sleepy and depressed) HEENT: Atraumatic, PERRLA, EOMI, Mucous membr. moist/pink Neck: Supple, No JVD, No thyromegaly, +2 carotid pulse wo bruit, No LAD Lymphatic: no adenopathy Neuro: Alert, Non Focal, CN 2-12 Grossly Intact, Oriented Times 3 Cardiovascular: Regular rate, No murmurs, Other (Systolic murmur) Respiratory: Chest non-tender, No respiratory distress, Breath sounds nml Abdomen: Normal bowel sounds Extremities: No clubbing, No cyanosis, No edema, Normal pulses, Other ( Bilateral BKA) Skin: No rashes, No breakdown - Results Results: Laboratory Results WBC 13.6 x10^3/uL (4.8-10.8) H 12/29/16 09:17 RBC 4.48 10^6/uL (4.20-5.40) 12/29/16 09:17 Hgb 12.9 g/dL (12.0-16.0) 12/29/16 09:17 Hct 41.0 % (37.0-47.0) 12/29/16 09:17 MCV 91.5 fL (81.0-99.0) 12/29/16 09:17 MCH 28.7 pg (27.0-31.0) 12/29/16 09:17 MCHC 31.4 g/dL (32.0-36.0) L 12/29/16 09:17 RDW 18.4 % (12.0-15.0) H 12/29/16 09:17 Plt Count 168 10^3/uL (130-450) 12/29/16 09:17 MPV 8.3 fL (7.9-10.8) 12/29/16 09: Neut # 11.9 10^3/uL (1.5-6.6) H 12/29/16 09:17 Lymph # 0.6 10^3/uL (1.5-3.5) L 12/29/16 09:17 Andrews # 0.9 10^3/uL (0.0-1.0) 12/29/16 09: Eos # 0.0 10^3/uL (0.0-0.7) 12/29/16 09: Baso # 0.1 10^3/uL (0.0-0.1) 12/29/16 09: Absolute Nucleated RBC 0.01 x10^3/uL 12/29/16 09: Nucleated RBCs 0.1 /100WBC 12/29/16 09:17 PT 37.1 secs (9.9-12.6) H 12/29/16 09:17 INR 3.3 (0.8-1.2) H 12/29/16 09:17 Whole Blood INR 1.4 (0.8-1.2) H 12/26/16 05:06 VBG pH 7.371 (7.31-7.41) 12/29/16 09:17 Ionized Calcium 1.12 mmol/L (1.15-1.33) L 12/29/16 09:17 Sodium 132 mmol/L (135-145) L 12/29/16 09:17 Potassium 4.7 mmol/L (3.5-5.0) 12/29/16 09:17 Chloride 100 mmol/L (101-111) L 12/29/16 09:17 Carbon Dioxide 27 mmol/L (21-32) 12/29/16 09:17 Anion Gap 5.0 (6-13) L 12/29/16 09:17 BUN 50 mg/dL (6-20) H 12/29/16 09:17 Creatinine 0.8 mg/dL (0.4-1.0) 12/29/16 09:17 Estimated GFR (MDRD) 73 (>89) L 12/29/16 09:17 Glucose 184 mg/dL (70-100) H 12/29/16 09:17 POC Whole Bld Glucose 162 mg/dL (70 - 100) H 12/29/16 12:58 Glycated Hemoglobin 8.3 % (4.6-6.2) H 12/22/16 18:10 Estim Average Glucose 192 (70-100) H 12/22/16 18:10 Lactic Acid 1.5 mmol/L (0.5-2.2) 12/26/16 04:16 Calcium 7.6 mg/dL (8.5-10.3) L 12/29/16 09:17 Ionized Calcium YES 12/29/16 09:17 Phosphorus 1.7 mg/dL (2.5-4.6) L 12/29/16 09:17 Magnesium 1.6 mg/dL (1.7-2.8) L 12/29/16 09:17 Total Bilirubin 0.7 mg/dL (0.2-1.0) 12/29/16 09:17 AST 17 IU/L (10-42) 12/29/16 09:17 ALT 20 IU/L (10-60) 12/29/16 09:17 Alkaline Phosphatase 64 IU/L (42-121) 12/29/16 09:17 Total Creatine Kinase 108 IU/L (22-269) 12/22/16 18:10 Troponin I < 0.04 ng/mL (<0.49) 12/26/16 10:08 B-Natriuretic Peptide 1899 pg/mL (5-100) H 12/26/16 10:08 Total Protein 4.7 g/dL (6.7-8.2) L 12/29/16 09:17 Albumin 1.7 g/dL (3.2-5.5) L 12/29/16 09:17 Globulin 3.0 g/dL (2.1-4.2) 12/29/16 09:17 Albumin/Globulin Ratio 0.6 (1.0-2.2) L 12/29/16 09:17 Lipase 12 U/L (22-51) L 12/22/16 16:30 TSH 7.66 uIU/mL (0.34-5.60) H 12/25/16 16:35 Cortisol AM Sample 26.2 ug/dL 12/25/16 08:52 Urine Color YELLOW 12/22/16 22:00 Urine Clarity CLOUDY (CLEAR) 12/22/16 22:00 Urine pH 6.0 PH (5.0-7.5) 12/22/16 22:00 Ur Specific [place] 1.020 (1.002-1.030) 12/22/16 22:00 Urine Protein 100 mg/dL (NEGATIVE) H 12/22/16 22:00 Urine Glucose (UA) NEGATIVE mg/dL (NEGATIVE) 12/22/16 22:00 Urine Ketones NEGATIVE mg/dL (NEGATIVE) 12/22/16 22:00 Urine Occult Blood TRACE-LYSE (NEGATIVE) 12/22/16 22:00 Urine Nitrite NEGATIVE (NEGATIVE) 12/22/16 22:00 Urine Bilirubin NEGATIVE (NEGATIVE) 12/22/16 22:00 Urine Urobilinogen 0.2 (NORMAL) E.U./dL (NORMAL) 12/22/16 22:00 Ur Leukocyte Esterase NEGATIVE (NEGATIVE) 12/22/16 22:00 Urine RBC 0-5 /HPF (0-5) 12/22/16 22:00 Urine WBC 0-3 /HPF (0-5) 12/22/16 22:00 Ur Squamous Epith Cells MANY Squamous (<= Few) H 12/22/16 22:00 Amorphous Sediment Marked /LPF 12/22/16 22:00 Urine Bacteria Many /HPF (None Seen) H 12/22/16 22:00 Urine Culture Comments NOT INDICATED 12/22/16 22:00 Salicylates < 6.0 mg/dL 12/22/16 16:30 Urine Opiates Screen NEGATIVE (NEGATIVE) 12/22/16 22:00 Ur Oxycodone Screen NEGATIVE (NEGATIVE) 12/22/16 22:00 Urine Methadone Screen NEGATIVE (NEGATIVE) 12/22/16 22:00 Ur Propoxyphene Screen NEGATIVE (NEGATIVE) 12/22/16 22:00 Acetaminophen < 10 ug/mL (10-30) L 12/22/16 16:30 Ur Barbiturates Screen NEGATIVE (NEGATIVE) 12/22/16 22:00 Ur Tricyclics Screen NEGATIVE (NEGATIVE) 12/22/16 22:00 Ur Phencyclidine Scrn NEGATIVE (NEGATIVE) 12/22/16 22:00 Ur Amphetamine Screen NEGATIVE (NEGATIVE) 12/22/16 22:00 U Methamphetamines Scrn NEGATIVE (NEGATIVE) 12/22/16 22:00 U Benzodiazepines Scrn NEGATIVE (NEGATIVE) 12/22/16 22:00 Urine Cocaine Screen NEGATIVE (NEGATIVE) 12/22/16 22:00 U Cannabinoids Screen POSITIVE (NEGATIVE) H 12/22/16 22:00 Ethyl Alcohol < 5.0 mg/dL 12/22/16 16:30 - Procedures Procedures: Procedures CONTINUOUS INVASIVE MECHANICAL VENTILATION <96 CONSEC HRS (01/14/15)
[2016-12-29] MEDS: ASPIRIN CHEW 81 MG TABLET PO SCH (17:16)
[2016-12-29] MEDS: SODIUM CHLORIDE FLUSH 0.9% 10 ML SYRINGE IVP PRN (21:20)
[2016-12-29] MEDS: ATORVASTATIN 40 MG TABLET PO SCH (21:21)
[2016-12-30] MEDS: LIDOCAINE OINTMENT 5% 35.44 GM TUBE TOP SCH ×5 (03:45→21:21)
[2016-12-30] MEDS: SODIUM CHLORIDE FLUSH 0.9% 10 ML SYRINGE IVP SCH ×3 (06:17→22:00)
[2016-12-30] MEDS: GABAPENTIN 100 MG CAPSULE PO SCH ×3 (06:17→21:20)
[2016-12-30 06:40] LABS: BASOPHILS % (AUTO) 0.4 %; EOSINOPHILS # (AUTO) 0.1 10^3/uL (0.0-0.7); EOSINOPHILS % (AUTO) 0.5 %; HCT - HEMATOCRIT 40.1 % (37.0-47.0); HGB - HEMOGLOBIN 12.5 g/dL (12.0-16.0); LYMPHOCYTES % (AUTO) 9.9 %; MEAN CORPUSCULAR HEMOGLOBIN 28.7 pg (27.0-31.0); MEAN CORPUSCULAR HGB CONC 31.3 g/dL (32.0-36.0); MEAN CORPUSCULAR VOLUME 91.7 fL (81.0-99.0); MEAN PLATELET VOLUME 7.9 fL (7.9-10.8); MONOCYTES # (AUTO) 0.9 10^3/uL (0.0-1.0); MONOCYTES % (AUTO) 8.2 %; NEUTROPHILS # (AUTO) 8.6 10^3/uL (1.5-6.6); NUCLEATED RED BLOOD CELLS AUTO 0.1 /100WBC; RED BLOOD COUNT 4.37 10^6/uL (4.20-5.40); RED CELL DISTRIBUTION WIDTH 18.3 % (12.0-15.0); UNCORRECTED WHITE BLOOD COUNT 10.6 x10^3/uL; WHITE BLOOD COUNT 10.6 x10^3/uL (4.8-10.8)
[2016-12-30 06:59] LABS: ALBUMIN/GLOBULIN RATIO 0.5 (1.0-2.2); BILIRUBIN,TOTAL 0.7 mg/dL (0.2-1.0); BUN - BLOOD UREA NITROGEN 42 mg/dL (6-20); CALCIUM 7.6 mg/dL (8.5-10.3); CARBON DIOXIDE - CO2 24 mmol/L (21-32); CHLORIDE 101 mmol/L (101-111); CREATININE 0.7 mg/dL (0.4-1.0); GFR - MDRD 86 (>89); GLUCOSE 111 mg/dL (70-100); MAGNESIUM 1.7 mg/dL (1.7-2.8); PHOSPHORUS 1.9 mg/dL (2.5-4.6); POTASSIUM 4.6 mmol/L (3.5-5.0); SODIUM 130 mmol/L (135-145)
[2016-12-30 07:16] LABS: CALCIUM, IONIZED 1.14 mmol/L (1.15-1.33); VBG PH 7.312 (7.31-7.41)
[2016-12-30 07:28] LABS: INR 3.1 (0.8-1.2); PT - PROTHROMBIN TIME 35.1 secs (9.9-12.6)
[2016-12-30] MEDS: MULTIVITAMIN TABLET PO SCH (08:16)
[2016-12-30] MEDS: FERROUS SULFATE 325 MG TABLET PO SCH ×2 (08:16→17:10)
[2016-12-30] MEDS: ASPIRIN CHEW 81 MG TABLET PO SCH (08:16)
[2016-12-30] MEDS: CARVEDILOL 12.5 MG TABLET PO SCH ×2 (08:16→21:18)
[2016-12-30] MEDS: LISINOPRIL 5 MG TABLET PO SCH (08:20)
[2016-12-30] MEDS: CALCIUM CARBONATE CHEW 500 MG TABLET PO SCH ×2 (08:20→22:00)
[2016-12-30] MEDS: MAGNESIUM OXIDE 400 MG TABLET PO SCH (08:21)
[2016-12-30] MEDS: SPIRONOLACTONE 25 MG TABLET PO SCH ×2 (08:21→21:18)
[2016-12-30] MEDS: FAMOTIDINE 20 MG TABLET PO SCH (08:21)
[2016-12-30] MEDS: ASCORBIC ACID CHEW 500 MG TABLET PO SCH (08:21)
[2016-12-30] MEDS: DOCUSATE SODIUM 250 MG CAPSULE PO SCH (08:21)
[2016-12-30] MEDS: DULoxetine 20 MG CAPSULE PO SCH (08:21)
[2016-12-30] MEDS: NEUTRA-PHOS 250 MG TABLET PO SCH ×3 (08:21→21:20)
[2016-12-30] MEDS: INSULIN ASPART 300 UNIT/3 ML PEN SUBQ SCH ×4 (08:22→21:20)
[2016-12-30] MEDS ORDERED: SODIUM CHLORIDE 0.9% 50 ML IV ONE (08:33)
[2016-12-30] MEDS: cefTRIAXone 1 GM in SODIUM CHLORIDE 0.9% MINIBAG 100 ML IV SCH (08:34)
[2016-12-30] MEDS: POLYETHYLENE GLYCOL 3350 17 GM PACKET PO SCH (08:34)
[2016-12-30] MEDS: SODIUM CHLORIDE FLUSH 0.9% 10 ML SYRINGE IVP PRN (08:36)
[2016-12-30] MEDS ORDERED: CALCIUM GLUCONATE 1,000 MG in SODIUM CHLORIDE 0.9% 50 ML IV ONE (08:45)
[2016-12-30 10:27] LABS: CREATININE, URINE 0.4 g/24 h (0.63-2.50)
[2016-12-30] MEDS: AZITHROMYCIN INJ 500 MG in SODIUM CHLORIDE 0.9% 250 ML IV SCH (10:32)
[2016-12-30] MEDS: WARFARIN 2.5 MG TABLET PO SCH (13:12)
--- NOTE | 2016-12-30 16:58 | PROVIDER PROGRESS NOTE ---
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 and was on coumadin but in April of 2016 she stopped her coumadin for unknown reason and now has developed more emboli Patients INR is 3.1 today Continue coumadin (2) Right ventricular apical thrombus Assessment/Plan: On echocardiogram patient found to have 0.6 x 1.8 cm apical thrombus with a translucent center meaning that it is subacute Patient likely having absence attacks and hypotension secondary to these cardiac thrombi in right and left ventricle Hypotension is likely due to reduced EF of 20% in conjunction with bilateral thrombi that may be effecting flow of blood through the heart Patients also likely having transient absence attacks secondary to the thrombus as he is likely having TIAs due to emboli 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 WBC is elevated was 18.5 and down to 10.6 today Continue IV ceftriaxone and azithromycin day 7 Improving (4) Hypotension Assessment/Plan: BP now stable No evidence for AMI, sepsis, GI bleed or dehydration as cause of sudden hypotension. Mostly likely this is occurring secondary to CHF with very low EF and cardiac thrombus causing decreased blood flow through the heart Resolved (5) CVA Assessment/Plan: Patient had another event today with drop in her BP MRI suggests a linear and wedge-shaped focus of signal abnormality in the right superior temporal gyrus extending to superior temporal sulcus. Finding suggest a late acute or subacute infarct. No associated hemorrhage Patient likely having TIAs secondary to cardiac thrombus and she likely had a recent stoke Patient on coumadin now with therapeutic dose Started on ASA and lipitor PT recommend SNF for rehab as patient is not at baseline Social work will work on getting patient placement starting tomorrow as patient is improving (6) Ischemic cardiomyopathy Assessment/Plan: Echo was remarkable for 4-chamber dilitation, LVEF 20%, large ovoid clots in the apex of the LV and the RV and probably in the descending aorta/abdominal aorta. Past admissions were reviewed and LVEF has been this low with Hx of CAD and MIs. Metoprolol Tartrate changed to Carvedilol 12.5 mg po bid, continued RAVINDER but lower the dose due to low BP, continued Spironolactone and ASA. Placed on coumadin for thrombus. Restart coreg, ravinder and aldactone now that BP is improved (7) DM2 (diabetes mellitus, type 2) Qualifiers: Diabetes mellitus complication detail: with other neurological complication Assessment/Plan: SS insulin and dm diet BG well controlled (8) Depression Assessment/Plan: Patient has history of psych disorder with inpatient hospitalization Cymbalta dose increased yesterday and patients mood is better today Social work consult for depression Improving PT recommend placement for rehab patient is improved and we will begin looking for placement tomorrow - Current Meds Current Meds: Current Medications Generic Name Dose Route Start Last Admin Trade Name Freq PRN Reason Stop Dose Admin Acetaminophen 650 mg 12/22/16 20:00 12/26/16 03:58 Tylenol PO 650 mg Q4HR PRN Administration Pain 1 to 4 Al Hydroxide/Mg Hydroxide 30 ml 12/27/16 23:04 12/29/16 04:00 Mylanta Plus PO 30 ml Q4HR PRN Administration INDIGESTION Ascorbic Acid 500 mg 12/23/16 13:00 12/30/16 08:21 Vitamin C PO 500 mg DAILY MILA Administration Aspirin 81 mg 12/29/16 17:00 12/30/16 08:16 [facility] Aspirin PO 81 mg DAILY MILA Administration Atorvastatin Calcium 80 mg 12/29/16 21:00 12/29/16 21:21 Lipitor PO 80 mg QPM MILA Administration Calcium Carbonate/Glycine 500 mg 12/23/16 13:00 12/30/16 08:20 Tums PO 500 mg BID MILA Administration Carvedilol 12.5 mg 12/26/16 21:00 12/30/16 08:16 Coreg PO 12.5 mg BID MILA Administration Docusate Sodium 250 - 500 mg 12/25/16 14:00 12/30/16 08:21 Colace 250mg Capsule PO 250 mg DAILY MILA Administration Duloxetine HCl 60 mg 12/29/16 10:11 12/30/16 08:21 Cymbalta PO 60 mg DAILY MILA Administration Famotidine 20 mg 12/23/16 09:00 12/30/16 08:21 Pepcid PO 20 mg DAILY MILA Administration Ferrous Sulfate 325 mg 12/23/16 17:00 12/30/16 08:16 Feosol PO 325 mg BIDWM MILA Administration Gabapentin 100 mg 12/22/16 23:45 12/30/16 13:10 Neurontin PO 100 mg TID MILA Administration Ceftriaxone Sodium 1 gm/ 100 mls @ 200 mls/hr 12/24/16 10:00 12/30/16 08:34 Sodium Chloride IV 200 mls/hr DAILY MILA Administration Azithromycin 500 mg/ Sodium 250 mls @ 250 mls/hr 12/24/16 11:00 12/30/16 10:32 Chloride IV 250 mls/hr DAILY@1100 MILA Administration Insulin Aspart 2 - 10 unit 12/26/16 08:00 12/30/16 11:39 Novolog SUBQ 2 unit 0800,1200,1700,2100 MILA Administration Protocol Lidocaine 1 applic 12/22/16 23:45 12/30/16 13:10 Xylocaine Ointment 5% TOP 1 applic QID MILA Administration Lisinopril 2.5 mg 12/26/16 12:07 12/30/16 08:20 Zestril PO 2.5 mg DAILY MILA Administration Magnesium Oxide 400 mg 12/29/16 11:00 12/30/16 08:21 Mag Ox PO 400 mg DAILYWM MILA Administration Mineral Oil 1 applic 12/28/16 03:25 12/28/16 05:41 Cavilon TOP 1 applic PRN PRN Administration Skin Care Multivitamins 1 tab 12/23/16 13:00 12/30/16 08:16 Theragran PO 1 tab DAILYWM MILA Administration Ondansetron HCl 4 mg 12/22/16 20:00 12/29/16 06:21 Zofran Inj IVP 4 mg Q6HR PRN Administration Nausea / Vomiting Ondansetron HCl 4 mg 12/24/16 11:47 12/26/16 14:12 Zofran Odt TL 4 mg Q4HR PRN Administration Nausea / Vomiting Polyethylene Glycol 17 gm 12/23/16 09:00 12/30/16 08:34 Miralax PO 17 gm DAILY MILA Administration Sodium Chloride 10 ml 12/22/16 22:00 12/30/16 13:10 Normal Saline Flush 0.9% IVP 10 ml Q8HR MILA Administration Sodium Chloride 10 ml 12/26/16 18:50 12/29/16 21:20 Normal Saline Flush 0.9% IVP 10 ml PRN PRN Administration NEEDED PER PROVIDER ORDERS Sodium Chloride 20 ml 12/26/16 18:50 12/30/16 08:36 Normal Saline Flush 0.9% IVP 20 ml PRN PRN Administration After TPN or Blood Draw Sodium Phosphate 250 mg 12/29/16 12:00 12/30/16 13:09 K-Phos Neutral PO 250 mg TIDWM MILA Administration Spironolactone 25 mg 12/23/16 13:00 12/30/16 08:21 Aldactone PO 25 mg BID MILA Administration Tramadol HCl 25 mg 12/26/16 12:06 12/27/16 13:12 Ultram PO 25 mg Q12H PRN Administration PAIN Warfarin Sodium 2.5 mg 12/28/16 08:37 12/30/16 13:12 Coumadin PO Not Given QDWARFARIN MILA - Lab Result Lab results reviewed: Yes Fish Bone Diagrams: 12/30/16 06:22 12/30/16 06:22 - EKG Results EKG Interpreted Independently: Yes - Diagnostic Imaging Results Diagnostic Imaging Results: Final report reviewed - Additional Planning Condition/Complexity: Improved My Orders: My Active Orders 12/29/16 17:00 Aspirin Chewable [[facility] Aspirin] 81 mg PO DAILY 12/29/16 21:00 Atorvastatin [Lipitor] 80 mg PO QPM 12/30/16 Evaluate and Treat PT [PT] Routine 12/31/16 05:00 CBC - COMP BLD CT W/AUTO DIFF [HEME] DAILYLAB CMP, RFLX TO IONIZED CA IF [CHEM] DAILYLAB MAGNESIUM [CHEM] DAILYLAB PHOSPHORUS [CHEM] DAILYLAB PT WITH INR [COAG] DAILYLAB 01/01/17 05:00 CBC - COMP BLD CT W/AUTO DIFF [HEME] DAILYLAB CMP, RFLX TO IONIZED CA IF [CHEM] DAILYLAB MAGNESIUM [CHEM] DAILYLAB PHOSPHORUS [CHEM] DAILYLAB PT WITH INR [COAG] DAILYLAB Consult/Specialty: PT Plan Discussed with:: Patient Time Spent: 31-60 minutes Subjective - Subjective Patient Reports: Feeling Better (The patient feels better. She states her mood is better. She has a better appetite. She gets very easily fatigued when trying to get to chair. She denies any cough or shortness of breath.), Resting Comfortably Nursing Reports: No Complaints Objective Vital Signs: Vital Signs - 24 hr 12/29/16 12/30/16 12/30/16 19:53 00:29 05:00 Temperature 36.7 C 36.8 C 36.7 C Heart Rate [ Activity] Heart Rate [ 82 79 82 Brachial] Respiratory 18 20 18 Rate Blood Pressure [Activity] Blood Pressure 112/67 127/81 H 122/75 [Right Brachial artery] O2 Saturation 94 96 95 12/30/16 12/30/16 12/30/16 07:57 13:00 15:00 Temperature 36.6 C 36.7 C Heart Rate [ 75 Activity] Heart Rate [ 76 81 Brachial] Respiratory 18 16 Rate Blood Pressure 101/62 [Activity] Blood Pressure 140/81 H 105/72 [Right Brachial artery] O2 Saturation 96 94 12/30/16 16:30 Temperature 37.1 C Heart Rate [ Activity] Heart Rate [ 75 Brachial] Respiratory 18 Rate Blood Pressure [Activity] Blood Pressure 121/70 [Right Brachial artery] O2 Saturation 95 Oxygen O2 Source Room air I&O (Last 24 Hrs): Intake and Output Totals x24h 12/28/16 12/29/16 12/30/16 23:59 23:59 23:59 Intake Total 0376 442 1410 Output Total 432 410 Balance 4183 352 5836 General: Alert, Oriented x3, Cooperative, Other (Less depressed) HEENT: Atraumatic, PERRLA, EOMI, Mucous membr. moist/pink Neck: Supple, No JVD, No thyromegaly, +2 carotid pulse wo bruit, No LAD Lymphatic: no adenopathy Neuro: Alert, Non Focal, CN 2-12 Grossly Intact, Oriented Times 3 Cardiovascular: Regular rate, Other (Systolic murmur) Respiratory: Chest non-tender, No respiratory distress, Rhonchi (improved) Abdomen: Normal bowel sounds, Soft, No tenderness, No hepatospenomegaly Extremities: No clubbing, No cyanosis, No edema, Normal pulses, Other ( Bilateral BKA) Skin: No rashes, No breakdown - Results Results: Laboratory Results WBC 10.6 x10^3/uL (4.8-10.8) 12/30/16 06:22 RBC 4.37 10^6/uL (4.20-5.40) 12/30/16 06:22 Hgb 12.5 g/dL (12.0-16.0) 12/30/16 06:22 Hct 40.1 % (37.0-47.0) 12/30/16 06:22 MCV 91.7 fL (81.0-99.0) 12/30/16 06:22 MCH 28.7 pg (27.0-31.0) 12/30/16 06:22 MCHC 31.3 g/dL (32.0-36.0) L 12/30/16 06:22 RDW 18.3 % (12.0-15.0) H 12/30/16 06:22 Plt Count 172 10^3/uL (130-450) 12/30/16 06:22 MPV 7.9 fL (7.9-10.8) 12/30/16 06:22 Neut # 8.6 10^3/uL (1.5-6.6) H 12/30/16 06:22 Lymph # 1.0 10^3/uL (1.5-3.5) L 12/30/16 06:22 [place] # 0.9 10^3/uL (0.0-1.0) 12/30/16 06:22 Eos # 0.1 10^3/uL (0.0-0.7) 12/30/16 06:22 Baso # 0.0 10^3/uL (0.0-0.1) 12/30/16 06:22 Absolute Nucleated RBC 0.02 x10^3/uL 12/30/16 06:22 Nucleated RBCs 0.1 /100WBC 12/30/16 06:22 PT 35.1 secs (9.9-12.6) H 12/30/16 07:00 INR 3.1 (0.8-1.2) H 12/30/16 07:00 Whole Blood INR 1.4 (0.8-1.2) H 12/26/16 05:06 VBG pH 7.312 (7.31-7.41) 12/30/16 06:22 Ionized Calcium 1.14 mmol/L (1.15-1.33) L 12/30/16 06:22 Sodium 130 mmol/L (135-145) L 12/30/16 06:22 Potassium 4.6 mmol/L (3.5-5.0) 12/30/16 06:22 Chloride 101 mmol/L (101-111) 12/30/16 06:22 Carbon Dioxide 24 mmol/L (21-32) 12/30/16 06:22 Anion Gap 5.0 (6-13) L 12/30/16 06:22 BUN 42 mg/dL (6-20) H 12/30/16 06:22 Creatinine 0.7 mg/dL (0.4-1.0) 12/30/16 06:22 Estimated GFR (MDRD) 86 (>89) L 12/30/16 06:22 Glucose 111 mg/dL (70-100) H 12/30/16 06:22 POC Whole Bld Glucose 154 mg/dL (70 - 100) H 12/30/16 16:26 Glycated Hemoglobin 8.3 % (4.6-6.2) H 12/22/16 18:10 Estim Average Glucose 192 (70-100) H 12/22/16 18:10 Lactic Acid 1.5 mmol/L (0.5-2.2) 12/26/16 04:16 Calcium 7.6 mg/dL (8.5-10.3) L 12/30/16 06:22 Ionized Calcium YES 12/30/16 06:22 Phosphorus 1.9 mg/dL (2.5-4.6) L 12/30/16 06:22 Magnesium 1.7 mg/dL (1.7-2.8) 12/30/16 06:22 Total Bilirubin 0.7 mg/dL (0.2-1.0) 12/30/16 06:22 AST 18 IU/L (10-42) 12/30/16 06:22 ALT 22 IU/L (10-60) 12/30/16 06:22 Alkaline Phosphatase 66 IU/L (42-121) 12/30/16 06:22 Total Creatine Kinase 108 IU/L (22-269) 12/22/16 18:10 Troponin I < 0.04 ng/mL (<0.49) 12/26/16 10:08 B-Natriuretic Peptide 1899 pg/mL (5-100) H 12/26/16 10:08 Total Protein 5.0 g/dL (6.7-8.2) L 12/30/16 06:22 Albumin 1.7 g/dL (3.2-5.5) L 12/30/16 06:22 Globulin 3.3 g/dL (2.1-4.2) 12/30/16 06:22 Albumin/Globulin Ratio 0.5 (1.0-2.2) L 12/30/16 06:22 Lipase 12 U/L (22-51) L 12/22/16 16:30 TSH 7.66 uIU/mL (0.34-5.60) H 12/25/16 16:35 Cortisol AM Sample 26.2 ug/dL 12/25/16 08:52 Urine Color YELLOW 12/22/16 22:00 Urine Clarity CLOUDY (CLEAR) 12/22/16 22:00 Urine pH 6.0 PH (5.0-7.5) 12/22/16 22:00 Ur Specific [place] 1.020 (1.002-1.030) 12/22/16 22:00 Urine Protein 100 mg/dL (NEGATIVE) H 12/22/16 22:00 Urine Glucose (UA) NEGATIVE mg/dL (NEGATIVE) 12/22/16 22:00 Urine Ketones NEGATIVE mg/dL (NEGATIVE) 12/22/16 22:00 Urine Occult Blood TRACE-LYSE (NEGATIVE) 12/22/16 22:00 Urine Nitrite NEGATIVE (NEGATIVE) 12/22/16 22:00 Urine Bilirubin NEGATIVE (NEGATIVE) 12/22/16 22:00 Urine Urobilinogen 0.2 (NORMAL) E.U./dL (NORMAL) 12/22/16 22:00 Ur Leukocyte Esterase NEGATIVE (NEGATIVE) 12/22/16 22:00 Urine RBC 0-5 /HPF (0-5) 12/22/16 22:00 Urine WBC 0-3 /HPF (0-5) 12/22/16 22:00 Ur Squamous Epith Cells MANY Squamous (<= Few) H 12/22/16 22:00 Amorphous Sediment Marked /LPF 12/22/16 22:00 Urine Bacteria Many /HPF (None Seen) H 12/22/16 22:00 Urine Culture Comments NOT INDICATED 12/22/16 22:00 Ur Free Cortisol 24 Hr 25.5 mcg/24 h (4.0-50.0) 12/25/16 17:28 Urine Total Volume 500 mL (()) 12/25/16 17:28 Urine Free Cortisol 63.7 (()) H 12/25/16 17:28 Urine Creatinine 0.40 g/24 h (0.63-2.50) L 12/25/16 17:28 Salicylates < 6.0 mg/dL 12/22/16 16:30 Urine Opiates Screen NEGATIVE (NEGATIVE) 12/22/16 22:00 Ur Oxycodone Screen NEGATIVE (NEGATIVE) 12/22/16 22:00 Urine Methadone Screen NEGATIVE (NEGATIVE) 12/22/16 22:00 Ur Propoxyphene Screen NEGATIVE (NEGATIVE) 12/22/16 22:00 Acetaminophen < 10 ug/mL (10-30) L 12/22/16 16:30 Ur Barbiturates Screen NEGATIVE (NEGATIVE) 12/22/16 22:00 Ur Tricyclics Screen NEGATIVE (NEGATIVE) 12/22/16 22:00 Ur Phencyclidine Scrn NEGATIVE (NEGATIVE) 12/22/16 22:00 Ur Amphetamine Screen NEGATIVE (NEGATIVE) 12/22/16 22:00 U Methamphetamines Scrn NEGATIVE (NEGATIVE) 12/22/16 22:00 U Benzodiazepines Scrn NEGATIVE (NEGATIVE) 12/22/16 22:00 Urine Cocaine Screen NEGATIVE (NEGATIVE) 12/22/16 22:00 U Cannabinoids Screen POSITIVE (NEGATIVE) H 12/22/16 22:00 Ethyl Alcohol < 5.0 mg/dL 12/22/16 16:30 - Procedures Procedures: Procedures CONTINUOUS INVASIVE MECHANICAL VENTILATION <96 CONSEC HRS (01/14/15)
[2016-12-30] MEDS: ATORVASTATIN 40 MG TABLET PO SCH (21:18)
[2016-12-31 05:41] LABS: BASOPHILS % (AUTO) 0.1 %; EOSINOPHILS # (AUTO) 0.1 10^3/uL (0.0-0.7); EOSINOPHILS % (AUTO) 0.9 %; HCT - HEMATOCRIT 38.2 % (37.0-47.0); LYMPHOCYTES % (AUTO) 10.3 %; MEAN CORPUSCULAR HEMOGLOBIN 28.7 pg (27.0-31.0); MEAN CORPUSCULAR HGB CONC 31.5 g/dL (32.0-36.0); MEAN CORPUSCULAR VOLUME 91.1 fL (81.0-99.0); MEAN PLATELET VOLUME 8.2 fL (7.9-10.8); MONOCYTES # (AUTO) 0.9 10^3/uL (0.0-1.0); MONOCYTES % (AUTO) 8.8 %; NEUTROPHILS % (AUTO) 79.9 %; RED BLOOD COUNT 4.19 10^6/uL (4.20-5.40); RED CELL DISTRIBUTION WIDTH 18.6 % (12.0-15.0); UNCORRECTED WHITE BLOOD COUNT 10.1 x10^3/uL; WHITE BLOOD COUNT 10.1 x10^3/uL (4.8-10.8)
[2016-12-31] MEDS: SODIUM CHLORIDE FLUSH 0.9% 10 ML SYRINGE IVP SCH ×2 (05:42→10:00)
[2016-12-31 05:58] LABS: ALBUMIN/GLOBULIN RATIO 0.5 (1.0-2.2); BILIRUBIN,TOTAL 0.6 mg/dL (0.2-1.0); BUN - BLOOD UREA NITROGEN 37 mg/dL (6-20); CALCIUM 7.6 mg/dL (8.5-10.3); CARBON DIOXIDE - CO2 26 mmol/L (21-32); CHLORIDE 104 mmol/L (101-111); CREATININE 0.7 mg/dL (0.4-1.0); GFR - MDRD 86 (>89); GLUCOSE 119 mg/dL (70-100); MAGNESIUM 1.7 mg/dL (1.7-2.8); PHOSPHORUS 2.1 mg/dL (2.5-4.6); POTASSIUM 4.8 mmol/L (3.5-5.0); SODIUM 134 mmol/L (135-145); TOTAL PROTEIN 4.9 g/dL (6.7-8.2)
[2016-12-31 06:04] LABS: CALCIUM, IONIZED 1.02 mmol/L (1.15-1.33); VBG PH 7.426 (7.31-7.41)
[2016-12-31] MEDS: GABAPENTIN 100 MG CAPSULE PO SCH (06:20)
[2016-12-31 07:11] LABS: INR 2.8 (0.8-1.2); PT - PROTHROMBIN TIME 32.1 secs (9.9-12.6)
[2016-12-31] MEDS ORDERED: CALCIUM GLUCONATE 2,000 MG in SODIUM CHLORIDE 0.9% 100ML 100 ML IV ONE (08:30)
[2016-12-31] MEDS: POLYETHYLENE GLYCOL 3350 17 GM PACKET PO SCH (10:05)
[2016-12-31] MEDS: SPIRONOLACTONE 25 MG TABLET PO SCH (10:07)
[2016-12-31] MEDS: FERROUS SULFATE 325 MG TABLET PO SCH (10:07)
[2016-12-31] MEDS: DULoxetine 20 MG CAPSULE PO SCH (10:07)
[2016-12-31] MEDS: CARVEDILOL 12.5 MG TABLET PO SCH (10:08)
[2016-12-31] MEDS: FAMOTIDINE 20 MG TABLET PO SCH (10:09)
[2016-12-31] MEDS: ASPIRIN CHEW 81 MG TABLET PO SCH (10:09)
[2016-12-31] MEDS: LISINOPRIL 5 MG TABLET PO SCH (10:09)
[2016-12-31] MEDS: DOCUSATE SODIUM 250 MG CAPSULE PO SCH (10:09)
[2016-12-31] MEDS: MULTIVITAMIN TABLET PO SCH (10:10)
[2016-12-31] MEDS: MAGNESIUM OXIDE 400 MG TABLET PO SCH (10:10)
[2016-12-31] MEDS: NEUTRA-PHOS 250 MG TABLET PO SCH ×2 (10:11→13:15)
[2016-12-31] MEDS: INSULIN ASPART 300 UNIT/3 ML PEN SUBQ SCH ×2 (10:11→13:16)
[2016-12-31] MEDS: LIDOCAINE OINTMENT 5% 35.44 GM TUBE TOP SCH ×2 (10:12→13:16)
[2016-12-31] MEDS: CALCIUM CARBONATE CHEW 500 MG TABLET PO SCH (10:17)
[2016-12-31] MEDS: ASCORBIC ACID CHEW 500 MG TABLET PO SCH (10:17)
--- NOTE | 2016-12-31 10:54 | Discharge Plan ---
Discharge Plan Disposition: 03 SNF DC/Xfer Condition: Stable Prescriptions: traMADol [Ultram] 25 mg PO Q12H PRN #10 tablet PRN Reason: Pain Diet: Diabetic Activity Restrictions: Activity as Tolerated Shower Restrictions: No Driving Restrictions: No Assistance Devices: Wheelchair Weight Bearing: Full Weight Additional Instructions or Follow Up instructions: Patient being discharged to [facility] for rehab with PT and OT. Will need to follow up with PCP and cardiology after she returns home. No Smoking: If you smoke, Please STOP! Call for help.
[2016-12-31] MEDS ORDERED: IPRATROPIUM/ALBUTEROL 3 ML NEB INH ONE (10:55)
[2016-12-31 10:56] LABS: ALDO/PRA RATIO 1.3 Ratio (0.9-28.9)
--- NOTE | 2016-12-31 11:09 | DISCHARGE SUMMARY ---
Discharge Summary Admit Date: 12/22/16 Discharge Date: 12/31/16 Discharging Provider: Sravan Palomares MD Primary Care Provider: Zach Kaye MD Code Status: Attempt Resuscitation Condition at Discharge: Fair Discharge Disposition: SNF DC/Xfer Discharge Facility Name: [facility] - DIAGNOSES Admission Diagnoses: 1. Generalized weakness 2. Hyponatremia 3. Hyperkalemia 4. Dysuria 5. Type II diabetes 6. Left flank pain 7. Hypertension 8. History of embolism 9. Depression Discharge Diagnoses with Status of Each Condition: 1. Left ventricular apical thrombus 2. Right ventricular apical thrombus 3. Pneumonia 4. Hypertension 5. CVA 6. Ischemic cardiomyopathy 7. Diabetes mellitus type II 8. Depression - HPI History of Present Illness: The patient is a 61-year-old Cauc[place] female with significant past medical history of COPD, hypertension, DM2, seizure, urinary incontinence, diverticulitis, coronary artery disease with am [place] in 2014 complicated with ventricular thrombus and embolic events including a CVA and emboli to the lower extremities, which requires bilateral lower extremities amputations, who present emergence department for evaluation of generalized weakness, dysuria, and failure to thrive. Patient state she has been lying in the bed daily for one month. She report she was loss of appetite for more than one month but denies loss of weight. She report she had history urinary incontinence. She had dysuria for about one week but denies hematuria. Patient state she has been burning sensation and pain at her left toyin and back area for more than two weeks. Patient report heart burning but denies chest pain, shortness of breathing. Patient report cough but without sputum. Patient report depression abut denies suicidal ideation or attempt. Patient denies fever, chill, headache , GI bleeding. No nausea, vomiting or diarrhea. Lab test Na 125, K 5.9, and slight elevated WBC at 13.6, HGB 15.3, Plt 178, creatinine 1.0, BUN 62. UA and UDS are pending. Patient was admitted for evaluation of generalized weakness and follow up. 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 and was on coumadin but in April of 2016 she stopped her coumadin for unknown reason and now has developed more emboli Patients INR was therapeutic at discharge She will continue coumadin as an outpatient they will check her INR weekly while she is at [facility] Patient discharged to [facility] in stable condition (2) Right ventricular apical thrombus Assessment/Plan: On echocardiogram patient found to have 0.6 x 1.8 cm apical thrombus with a translucent center meaning that it is subacute Patient likely having absence attacks and hypotension secondary to these cardiac thrombi in right and left ventricle Hypotension is likely due to reduced EF of 20% in conjunction with bilateral thrombi that may be effecting flow of blood through the heart Patients also likely having transient absence attacks secondary to the thrombus as he is likely having TIAs due to emboli Patient has history of cardiac thrombi with emboli to the legs causing right BKA and left AKA and was on coumadin but in April of 2016 she stopped her coumadin for unknown reason and now has developed more emboli Patients INR was therapeutic at discharge She will continue coumadin as an outpatient they will check her INR weekly while she is at [facility] Patient discharged to [facility] in stable condition (3) Pneumonia Qualifiers: Pneumonia type: due to unspecified organism Laterality: left Assessment/Plan: Pt's respiratory status is improving, no respiratory distress. WBC is elevated was 18.5 and down to 10.6 today She completed 7 days of IV ceftriaxone and azithromycin prior to discharge Resolved (4) Hypotension Assessment/Plan: Stable at discharge she was restarted on home BP medications No evidence for AMI, sepsis, GI bleed or dehydration as cause of sudden hypotension. Mostly likely this is occurring secondary to CHF with very low EF and cardiac thrombus causing decreased blood flow through the heart Resolved (5) CVA Assessment/Plan: Patient had another event today with drop in her BP MRI suggests a linear and wedge-shaped focus of signal abnormality in the right superior temporal gyrus extending to superior temporal sulcus. Finding suggest a late acute or subacute infarct. No associated hemorrhage Patient likely having TIAs secondary to cardiac thrombus and she likely had a recent stoke Patient on coumadin now with therapeutic dose Started on ASA and lipitor PT recommended SNF for rehab as patient is not at baseline Patient discharged to [facility] for PT/OT rehab Continue ASA and lipitor (6) Ischemic cardiomyopathy Assessment/Plan: Echo was remarkable for 4-chamber dilitation, LVEF 20%, large ovoid clots in the apex of the LV and the RV and probably in the descending aorta/abdominal aorta. Past admissions were reviewed and LVEF has been this low with Hx of CAD and MIs. Metoprolol Tartrate changed to Carvedilol 12.5 mg po bid, continued RAVINDER but lower the dose due to low BP, continued Spironolactone and ASA. Placed on coumadin for thrombus. On optimal treatment for systolic CHF may need lasix in future if she develops decompensation Discharged home in stable condition (7) DM2 (diabetes mellitus, type 2) Qualifiers: Diabetes mellitus complication detail: with other neurological complication Assessment/Plan: SS insulin and dm diet BG well controlled (8) Depression Assessment/Plan: Patient has history of psych disorder with inpatient hospitalization Cymbalta dose increased yesterday and patients mood is better today Social work consult patient given resources for outpatient follow up Improving (9) COPD Assessment/Plan: Prior to discharge patient did have some wheezing but that improved with a neb treatment Patient discharged to [facility] with albuterol as needed. 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 Assessment/Plan: Seen on CT and MRI were also present in 2013 and 2015 scans but slightly increased intensity from 2014 Adrenal labs were within normal limits Consider outpatient biopsy or referral to endocrine once more stable - ALLERGIES Allergies/Adverse Reactions: Allergies Allergy/AdvReac Type Severity Reaction Status Date / Time latex Allergy Unknown Verified 11/01/16 12:58 levofloxacin Allergy Itching Verified 07/15/15 11:57 levopropoxyphene Allergy Unknown Verified 11/01/16 12:58 Penicillins Allergy Hives Verified 07/15/15 11:57 - MEDICATIONS Home Medications: Ambulatory Orders Medication Instructions Recorded Confirmed Warfarin Sodium [Coumadin] 5 mg PO DAILY 01/15/15 12/23/16 Spironolactone 25 mg ORAL BID 11/01/16 12/23/16 Ascorbic Acid [Vitamin C] 500 mg PO DAILY 12/22/16 12/23/16 Ferrous Sulfate 325 mg PO BIDWM 12/22/16 12/23/16 Multivit with Calcium,Iron,Min 1 each PO DAILY 12/22/16 12/23/16 [Multiple Vitamins For Women] Aspirin Chewable [St Chris 81 mg PO DAILY tablet 12/31/16 Aspirin] Atorvastatin [Lipitor] 80 mg PO QPM tablet 12/31/16 Carvedilol [Coreg] 12.5 mg PO BID tablet 12/31/16 DULoxetine [Cymbalta] 60 mg PO DAILY capsule 12/31/16 Gabapentin [Neurontin] 100 mg PO BID capsule 12/31/16 Lisinopril [Zestril] 2.5 mg PO DAILY tablet 12/31/16 Magnesium Oxide [Mag Ox] 400 mg PO DAILYWM tablet 12/31/16 traMADol [Ultram] 25 mg PO Q12H PRN #10 tablet 12/31/16 - PHYSICAL EXAM AT DISCHARGE General Appearance: positive: No acute distress, Alert, Other (Depressed but improving) Eyes Bilateral: positive: Normal inspection, PERRL, EOMI, No lid inflammation, Conjunctivae nml, No scleral icterus ENT: positive: ENT inspection nml, Pharynx nml, No signs of dehydration. negative: Purulent nasal drainage, Pharyngeal erythema, Oral lesions Neck: positive: Nml inspection, Thyroid nml, No JVD, Trachea midline. negative : Thyromegaly, Lymphadenopathy (R), Lymphadenopathy (L), Carotid bruit, Tracheal deviation Respiratory: positive: Chest non-tender, No respiratory distress, Wheezes. negative: Rales, Rhonchi Cardiovascular: positive: Regular rate & rhythm, No gallop, Systolic murmur Peripheral Pulses: positive: 2+ Abdomen: positive: Non-tender, No organomegaly, Nml bowel sounds, No distention. negative: Guarding, Rebound, Hepatomegaly Back: positive: Nml inspection. negative: CVA tenderness (R), CVA tenderness (L ) Skin: positive: Color nml, No rash. negative: Cyanosis, Pallor Extremities: positive: No pedal edema, Other (Right BKA and Left AKA) Neurologic/Psychiatric: positive: Oriented x3, CN's nml (2-12), Motor nml, Sensation nml, Depressed mood/affect - LABS Result Diagrams: 12/31/16 05:12 12/31/16 05:12 Other Lab Results: Laboratory Results WBC 10.1 x10^3/uL (4.8-10.8) 12/31/16 05:12 RBC 4.19 10^6/uL (4.20-5.40) L 12/31/16 05:12 Hgb 12.0 g/dL (12.0-16.0) 12/31/16 05:12 Hct 38.2 % (37.0-47.0) 12/31/16 05:12 MCV 91.1 fL (81.0-99.0) 12/31/16 05:12 MCH 28.7 pg (27.0-31.0) 12/31/16 05:12 MCHC 31.5 g/dL (32.0-36.0) L 12/31/16 05:12 RDW 18.6 % (12.0-15.0) H 12/31/16 05:12 Plt Count 158 10^3/uL (130-450) 12/31/16 05:12 MPV 8.2 fL (7.9-10.8) 12/31/16 05:12 Neut # 8.0 10^3/uL (1.5-6.6) H 12/31/16 05:12 Lymph # 1.0 10^3/uL (1.5-3.5) L 12/31/16 05:12 [place] # 0.9 10^3/uL (0.0-1.0) 12/31/16 05:12 Eos # 0.1 10^3/uL (0.0-0.7) 12/31/16 05:12 Baso # 0.0 10^3/uL (0.0-0.1) 12/31/16 05:12 Absolute Nucleated RBC 0.00 x10^3/uL 12/31/16 05:12 Nucleated RBCs 0.0 /100WBC 12/31/16 05:12 PT 32.1 secs (9.9-12.6) H 12/31/16 06:16 INR 2.8 (0.8-1.2) H 12/31/16 06:16 Whole Blood INR 1.4 (0.8-1.2) H 12/26/16 05:06 VBG pH 7.426 (7.31-7.41) H 12/31/16 05:12 Ionized Calcium 1.02 mmol/L (1.15-1.33) L 12/31/16 05:12 Sodium 134 mmol/L (135-145) L 12/31/16 05:12 Potassium 4.8 mmol/L (3.5-5.0) 12/31/16 05:12 Chloride 104 mmol/L (101-111) 12/31/16 05:12 Carbon Dioxide 26 mmol/L (21-32) 12/31/16 05:12 Anion Gap 4.0 (6-13) L 12/31/16 05:12 BUN 37 mg/dL (6-20) H 12/31/16 05:12 Creatinine 0.7 mg/dL (0.4-1.0) 12/31/16 05:12 Estimated GFR (MDRD) 86 (>89) L 12/31/16 05:12 Glucose 119 mg/dL (70-100) H 12/31/16 05:12 POC Whole Bld Glucose 128 mg/dL (70 - 100) H 12/31/16 11:08 Glycated Hemoglobin 8.3 % (4.6-6.2) H 12/22/16 18:10 Estim Average Glucose 192 (70-100) H 12/22/16 18:10 Lactic Acid 1.5 mmol/L (0.5-2.2) 12/26/16 04:16 Calcium 7.6 mg/dL (8.5-10.3) L 12/31/16 05:12 Ionized Calcium YES 12/31/16 05:12 Phosphorus 2.1 mg/dL (2.5-4.6) L 12/31/16 05:12 Magnesium 1.7 mg/dL (1.7-2.8) 12/31/16 05:12 Total Bilirubin 0.6 mg/dL (0.2-1.0) 12/31/16 05:12 AST 18 IU/L (10-42) 12/31/16 05:12 ALT 21 IU/L (10-60) 12/31/16 05:12 Alkaline Phosphatase 60 IU/L (42-121) 12/31/16 05:12 Total Creatine Kinase 108 IU/L (22-269) 12/22/16 18:10 Troponin I < 0.04 ng/mL (<0.49) 12/26/16 10:08 B-Natriuretic Peptide 1899 pg/mL (5-100) H 12/26/16 10:08 Total Protein 4.9 g/dL (6.7-8.2) L 12/31/16 05:12 Albumin 1.7 g/dL (3.2-5.5) L 12/31/16 05:12 Globulin 3.2 g/dL (2.1-4.2) 12/31/16 05:12 Albumin/Globulin Ratio 0.5 (1.0-2.2) L 12/31/16 05:12 Lipase 12 U/L (22-51) L 12/22/16 16:30 Renin Activity 18.90 ng/mL/h (0.25-5.82) H 12/25/16 13:16 Aldosterone 24 ng/dL (()) 12/25/16 13:16 Aldosterone/Renin Ratio 1.3 Ratio (0.9-28.9) 12/25/16 13:16 TSH 7.66 uIU/mL (0.34-5.60) H 12/25/16 16:35 Cortisol AM Sample 26.2 ug/dL 12/25/16 08:52 ACTH 33 pg/mL (6-50) 12/25/16 13:16 Urine Color YELLOW 12/22/16 22:00 Urine Clarity CLOUDY (CLEAR) 12/22/16 22:00 Urine pH 6.0 PH (5.0-7.5) 12/22/16 22:00 Ur Specific [place] 1.020 (1.002-1.030) 12/22/16 22:00 Urine Protein 100 mg/dL (NEGATIVE) H 12/22/16 22:00 Urine Glucose (UA) NEGATIVE mg/dL (NEGATIVE) 12/22/16 22:00 Urine Ketones NEGATIVE mg/dL (NEGATIVE) 12/22/16 22:00 Urine Occult Blood TRACE-LYSE (NEGATIVE) 12/22/16 22:00 Urine Nitrite NEGATIVE (NEGATIVE) 12/22/16 22:00 Urine Bilirubin NEGATIVE (NEGATIVE) 12/22/16 22:00 Urine Urobilinogen 0.2 (NORMAL) E.U./dL (NORMAL) 12/22/16 22:00 Ur Leukocyte Esterase NEGATIVE (NEGATIVE) 12/22/16 22:00 Urine RBC 0-5 /HPF (0-5) 12/22/16 22:00 Urine WBC 0-3 /HPF (0-5) 12/22/16 22:00 Ur Squamous Epith Cells MANY Squamous (<= Few) H 12/22/16 22:00 Amorphous Sediment Marked /LPF 12/22/16 22:00 Urine Bacteria Many /HPF (None Seen) H 12/22/16 22:00 Urine Culture Comments NOT INDICATED 12/22/16 22:00 Ur Free Cortisol 24 Hr 25.5 mcg/24 h (4.0-50.0) 12/25/16 17:28 Urine Total Volume 500 mL (()) 12/25/16 17:28 Urine Free Cortisol 63.7 (()) H 12/25/16 17:28 Urine Creatinine 0.40 g/24 h (0.63-2.50) L 12/25/16 17:28 Salicylates < 6.0 mg/dL 12/22/16 16:30 Urine Opiates Screen NEGATIVE (NEGATIVE) 12/22/16 22:00 Ur Oxycodone Screen NEGATIVE (NEGATIVE) 12/22/16 22:00 Urine Methadone Screen NEGATIVE (NEGATIVE) 12/22/16 22:00 Ur Propoxyphene Screen NEGATIVE (NEGATIVE) 12/22/16 22:00 Acetaminophen < 10 ug/mL (10-30) L 12/22/16 16:30 Ur Barbiturates Screen NEGATIVE (NEGATIVE) 12/22/16 22:00 Ur Tricyclics Screen NEGATIVE (NEGATIVE) 12/22/16 22:00 Ur Phencyclidine Scrn NEGATIVE (NEGATIVE) 12/22/16 22:00 Ur Amphetamine Screen NEGATIVE (NEGATIVE) 12/22/16 22:00 U Methamphetamines Scrn NEGATIVE (NEGATIVE) 12/22/16 22:00 U Benzodiazepines Scrn NEGATIVE (NEGATIVE) 12/22/16 22:00 Urine Cocaine Screen NEGATIVE (NEGATIVE) 12/22/16 22:00 U Cannabinoids Screen POSITIVE (NEGATIVE) H 12/22/16 22:00 Ethyl Alcohol < 5.0 mg/dL 12/22/16 16:30 - DIAGNOSTIC IMAGING Diagnostic Imaging Results: Final report reviewed Diagnostic Imaging Results Comments: Echocardiogram 1. Mild left ventricular enlargement 2. Overall left ventricular systolic function is severely globally impaired with an ejection fraction of 20-25% 3. There is severe global hypokinesis with left ventricular contractility. 4. Impaired relaxation consistent with grade 1 diastolic dysfunction. 5. Mild right ventricular enlargement 6. Right ventricular systolic option is severely impaired 7. Severe increase in left atrial volume index A. Moderate right atrial enlargement 9. Mildly abnormal right heart pressures 10. The right ventricular systolic pressure at rest is 42 mmHg 11. An apical thrombus equals at 5.2 cm 2.5 x 2.8 cm in the left ventricle 12. An apical thrombus equals at 1.27 m and 0.6 x 1.8 cm with a translucent center in the right ventricle is noted. 13. A thrombus or heavy plaque in the abdominal aorta cannot be excluded 14. His large size pleural effusion noted Chest x-ray 12/23/2016 Impression new left basilar infiltrate likely small effusion CT abdomen pelvis: 1. Moderate left pleural effusion, increased. Small right pleural effusion, decreased small loculated pleural effusion at the left major fissure. 2. Calcified gallstones mild common duct dilation measuring 9 mm that tapers distally, appears unchanged. 3. No evidence for bowel obstruction a few sigmoid diverticula. Mild diffuse be icteric stranding. Mild left lateral recess ascites. Increased presacral fluid/ edema could be related to increased fluid overload. 4. Severe diffuse anasarca 5. Bilateral adrenal gland thickening or masses, increased compared to the prior adjacent stranding. This can be seen in adrenal hyperplasia. Adrenal mass is not excluded Abdominal MRI impression: 1. Bilateral adrenal gland enlargement, left greater than right, with bilateral adrenal gland nodules and nodularity similar compared to 04/21/[address]. However the nodularity and size of the adrenal gland is slightly more prominent compared to the CT from 01/28/2014. Overall findings may be due in part to hyperplasia or reactive in origin with overall appearance of the nodules appearing similar and/or adrenal adenomas. Ability to differentiate and daily delineate in an adrenal adenoma is limited due to respiratory motion. 2. Bilateral renal cysts including a left renal hemorrhage/proteinaceous cyst 3. Cholelithiasis 4. Large left pleural effusion and small to moderate right pleural effusions 5. Subcutaneous edema. CT head 1 chronic appearing posterior right temporal lobe infarct is new compared to 2. No localizing parenchymal edema or hemorrhage 3. Stable old small right superior parietal lobe infarct unchanged. MRI brain 1 linear and wedge-shaped focus of signal abnormality in the right superior temporal gyrus extending to superior temporal sulcus. Findings suggest a late acute or subacute infarct likely less than one week up to 3 weeks in age. No associated hemorrhage 2. Focal area of cortical and subcortical T2 and flair bright signal in the high right parietal convexity with subcortical focus in the high right precentral gyrus. This may represent sequelae of old lacunar infarct. 3. White matter T2 and flair bright signal in the cerebral hemispheres and brainstem. It is nonspecific typically secondary to small vessel ischemic changes. Chest x-ray 12/26/2016 1 left PICC catheter tip at cavoatrial junction 2. Extensive infiltrates throughout the left lung - FOLLOW UP Follow Up: Patient discharged to [facility] for rehab. She will need follow with her PCP and she would benefit from specialty referrals to Cardiology for her reduced EF, endocrine for her adrenal masses and neurology for her strokes. She needs to continue to take coumadin and have her INR monitored. - TIME SPENT Time Spent in Discharge (Minutes): 50
[2016-12-31 11:33] VITALS: BP 142/78
[2016-12-31] MEDS ORDERED: IPRATROPIUM/ALBUTEROL 3 ML NEB INH PRN (14:00)
== END 2016-12-31 14:00 | DRG 311 ==
LOC: EDUNIT# → ED 15:56 → MS3 19:03 → ED 19:41 → ICU 12-25 18:11 → MS2 12-29 14:50
PROVIDERS: ADMIT Nurse Practitioner Gerontology; ATTEND Internal Medicine
PROC: 02HV33Z Insertion of Infusion Device into Superior Vena Cava, Percutaneous Approach (ICD-10-PCS; principal; 2016-12-26)
PROC: B548ZZA Ultrasonography of Superior Vena Cava, Guidance (ICD-10-PCS; 2016-12-26)
DX: I24.0 Acute coronary thrombosis not resulting in myocardial infarction (principal); J18.9 Pneumonia, unspecified organism; I63.9 Cerebral infarction, unspecified; I25.10 Atherosclerotic heart disease of native coronary artery without angina pectoris; I50.20 Unspecified systolic (congestive) heart failure; E87.1 Hypo-osmolality and hyponatremia; I11.0 Hypertensive heart disease with heart failure; I25.5 Ischemic cardiomyopathy; E11.9 Type 2 diabetes mellitus without complications; K44.9 Diaphragmatic hernia without obstruction or gangrene; F41.9 Anxiety disorder, unspecified; Z79.01 Long term (current) use of anticoagulants; I95.89 Other hypotension; E11.40 Type 2 diabetes mellitus with diabetic neuropathy, unspecified; E87.5 Hyperkalemia; J44.9 Chronic obstructive pulmonary disease, unspecified; F32.9 Major depressive disorder, single episode, unspecified; E27.8 Other specified disorders of adrenal gland; R30.0 Dysuria; R10.32 Left lower quadrant pain; R68.0 Hypothermia, not associated with low environmental temperature; R32 Unspecified urinary incontinence; Z86.73 Personal history of transient ischemic attack (TIA), and cerebral infarction without residual deficits; Z86.718 Personal history of other venous thrombosis and embolism; Z89.511 Acquired absence of right leg below knee; Z89.611 Acquired absence of right leg above knee; I25.2 Old myocardial infarction; Z79.4 Long term (current) use of insulin; Z79.899 Other long term (current) drug therapy; Z87.891 Personal history of nicotine dependence
CPT/HCPCS: 36415; 36569; 70450; 70553; 71010; 74176; 74183; 80053; 80306; 80307; 80320; 80329; 81001; 82024; 82088; 82330; 82530; 82533; 82550; 82570; 83036; 83605; 83690; 83735; 83880; 84100; 84244; 84443; 84484; 85025; 85610; 87086; 87150; 93005; 93306; 94640; 96360; 96361; 99283; 99284; 99285

== ENCOUNTER 2017-01-07 08:00 | Outpatient (CLI) | payer MEDICAID, MEDICARE, OTHER ==
[2017-01-07 11:38] LABS: BASOPHILS # (AUTO) 0.1 10^3/uL (0.0-0.1); BASOPHILS % (AUTO) 0.8 %; EOSINOPHILS # (AUTO) 0.1 10^3/uL (0.0-0.7); EOSINOPHILS % (AUTO) 0.5 %; HCT - HEMATOCRIT 38.2 % (37.0-47.0); HGB - HEMOGLOBIN 12.1 g/dL (12.0-16.0); LYMPHOCYTES # (AUTO) 1.9 10^3/uL (1.5-3.5); LYMPHOCYTES % (AUTO) 16.3 %; MEAN CORPUSCULAR HEMOGLOBIN 27.9 pg (27.0-31.0); MEAN CORPUSCULAR HGB CONC 31.5 g/dL (32.0-36.0); MEAN CORPUSCULAR VOLUME 88.4 fL (81.0-99.0); MEAN PLATELET VOLUME 7.8 fL (7.9-10.8); MONOCYTES # (AUTO) 0.7 10^3/uL (0.0-1.0); MONOCYTES % (AUTO) 5.9 %; NEUTROPHILS # (AUTO) 8.7 10^3/uL (1.5-6.6); NEUTROPHILS % (AUTO) 76.5 %; RED BLOOD COUNT 4.33 10^6/uL (4.20-5.40); RED CELL DISTRIBUTION WIDTH 18.3 % (12.0-15.0); UNCORRECTED WHITE BLOOD COUNT 11.4 x10^3/uL; WHITE BLOOD COUNT 11.4 x10^3/uL (4.8-10.8)
[2017-01-07 11:40] LABS: CALCIUM 7.8 mg/dL (8.5-10.3); CREATININE 0.8 mg/dL (0.4-1.0); POTASSIUM 4.8 mmol/L (3.5-5.0)
== END 2017-01-07 08:01 | disposition home or self-care (01) ==
LOC: LAB.R 08:00
DX: I50.9 Heart failure, unspecified (principal); J18.9 Pneumonia, unspecified organism
CPT/HCPCS: 80048; 85025

== ENCOUNTER 2017-01-07 12:02 | Outpatient (CLI) | payer MEDICARE, MEDICAID | END 2017-01-07 12:03 | disposition critical access hospital (66) | LOC: EMS 12:02 | PROVIDERS: ATTEND Surgery | DX: R06.02 Shortness of breath (principal) | CPT/HCPCS: A0425; A0427 ==

== ENCOUNTER 2017-01-07 12:10 | Inpatient (IN) | payer MEDICARE, MEDICAID ==
--- NOTE | 2017-01-07 12:25 | ED Physician Documentation ---
PD HPI DYSPNEA - Stated complaint Stated Complaint: CONFUSED - Chief complaint Chief Complaint: General - History obtained from History obtained from: Patient, Caregiver - History of Present Illness Timing - onset: How many days ago (several days of worsening dyspnea and wheezing. Had been in the hospital for pneumonia, confusion, illness. [place] [facility] [place] 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 History of CHF and cardiomyopathy.) Timing - onset during: Rest Timing - duration: Days Timing - details: Gradual onset (has COPD and recent pneumonia, was discharged after hospitalization [place] [facility] [place] was not getting nebs there. Feeling increased cough, feverish and worse dyspnea. Wheezing and was worse today.), Still present Inciting event(s): URI. No: Out of meds (but was not getting neb treatments from nursing even though she asked for it (was on JUL as PRN)) Improved by: Inhaler/neb (enroute via EMS, ehlped a lot.) Worsened by: Laying flat, Coughing Associated symptoms: Fever (subjective), Cough, Wheezing. No: Chest pain / discomfort Similar symptoms before: Diagnosis (COPD, Pneumonia, CHF) Recently seen: Emergency Dept, Admitted Review of Systems Constitutional: reports: Fever, Myalgias Nose: denies: Rhinorrhea / runny nose, Congestion Throat: denies: Sore throat Cardiac: denies: Chest pain / pressure, Palpitations Respiratory: reports: Dyspnea, Cough, Wheezing GI: denies: Abdominal Pain, Nausea, Vomiting, Diarrhea, Bloody / black stool : denies: Dysuria, Frequency Skin: denies: Rash, Lesions Neurologic: reports: Generalized weakness. 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 - Present Medications Home Medications: Ambulatory Orders Medication Instructions Recorded Confirmed Warfarin Sodium [Coumadin] 5 mg PO DAILY 01/15/15 12/23/16 Spironolactone 25 mg ORAL BID 11/01/16 12/23/16 Ascorbic Acid [Vitamin C] 500 mg PO DAILY 12/22/16 12/23/16 Ferrous Sulfate 325 mg PO BIDWM 12/22/16 12/23/16 Multivit with Calcium,Iron,Min 1 each PO DAILY 12/22/16 12/23/16 [Multiple Vitamins For Women] Aspirin Chewable [St Chris 81 mg PO DAILY tablet 12/31/16 Aspirin] Atorvastatin [Lipitor] 80 mg PO QPM tablet 12/31/16 Carvedilol [Coreg] 12.5 mg PO BID tablet 12/31/16 DULoxetine [Cymbalta] 60 mg PO DAILY capsule 12/31/16 Gabapentin [Neurontin] 100 mg PO BID capsule 12/31/16 Lisinopril [Zestril] 2.5 mg PO DAILY tablet 12/31/16 Magnesium Oxide [Mag Ox] 400 mg PO DAILYWM tablet 12/31/16 traMADol [Ultram] 25 mg PO Q12H PRN #10 tablet 12/31/16 - Allergies Allergies/Adverse Reactions: Allergies Allergy/AdvReac Type Severity Reaction Status Date / Time latex Allergy Unknown Verified 11/01/16 12:58 levofloxacin Allergy Itching Verified 07/15/15 11:57 levopropoxyphene Allergy Unknown Verified 11/01/16 12:58 Penicillins Allergy Hives Verified 07/15/15 11:57 - Social History Does the pt smoke?: Yes Smoking Status: Former smoker Does the pt drink ETOH?: No Does the pt have substance abuse?: Yes - Immunizations Immunizations are current?: No Immunizations: TDAP >10years/unknown - POLST Patient has POLST: No PD ED PE NORMAL - Vitals Vital signs reviewed: Yes - General General: Alert and oriented X 3, Well developed/nourished, Other (some work of breathing. DIffuse wheezing.) - HEENT HEENT: Atraumatic, Moist mucous membranes, Pharynx benign - Neck Neck: Supple, no meningeal sign, No adenopathy, No JVD - Cardiac Cardiac: RRR, No murmur - Respiratory Respiratory: No: Clear bilaterally (diffuse wheezing; fine crackles both bases lower third. No coarse sounds. ) - Abdomen Abdomen: Normal bowel sounds, Soft, Non tender, Non distended - Female Female : Deferred - Rectal Rectal: Deferred - Back Back: No CVA TTP - Derm Derm: Normal color, No rash - Extremities Extremities: Other (bilateral leg amputations noted. ) - Neuro Neuro: Alert and oriented X 3, No motor deficit, Normal speech - Psych Psych: Normal mood, Normal affect Results - Vitals Vitals: Vital Signs - 24 hr 01/07/17 01/07/17 01/07/17 12:15 12:58 14:25 Temperature 36.2 C L Heart Rate 74 73 73 Respiratory 20 22 22 Rate Blood Pressure 130/90 H O2 Saturation 100 01/07/17 01/07/17 14:28 15:23 Temperature Heart Rate 75 74 Respiratory 18 14 Rate Blood Pressure 140/79 H 125/76 O2 Saturation 100 Oxygen O2 Source Room air - Labs Labs: Laboratory Tests 01/07/17 01/07/17 01/07/17 12:54 12:54 12:54 WBC 11.8 H RBC 4.26 Hgb 11.9 L Hct 37.6 MCV 88.4 MCH 27.9 MCHC 31.5 L RDW 18.2 H Plt Count 308 MPV 7.3 L Neut # 9.3 H Lymph # 1.6 [place] # 0.6 Eos # 0.1 Baso # 0.2 H Absolute Nucleated RBC 0.00 Nucleated RBCs 0.0 PT INR Sodium 136 Potassium 4.8 Chloride 102 Carbon Dioxide 30 Anion Gap 4.0 L BUN 22 H Creatinine 0.6 Estimated GFR (MDRD) 102 Glucose 129 H Calcium 7.7 L Magnesium 1.7 Total Bilirubin 0.7 AST 19 ALT 23 Alkaline Phosphatase 67 B-Natriuretic Peptide 4310 H Total Protein 5.5 L Albumin 1.8 L Globulin 3.7 Albumin/Globulin Ratio 0.5 L Lipase 29 01/07/17 13:15 WBC RBC Hgb Hct MCV MCH MCHC RDW Plt Count MPV Neut # Lymph # [place] # Eos # Baso # Absolute Nucleated RBC Nucleated RBCs PT 36.4 H INR 3.2 H Sodium Potassium Chloride Carbon Dioxide Anion Gap BUN Creatinine Estimated GFR (MDRD) Glucose Calcium Magnesium Total Bilirubin AST ALT Alkaline Phosphatase B-Natriuretic Peptide Total Protein Albumin Globulin Albumin/Globulin Ratio Lipase - Rads (name of study) chest Radiology: Prelim report reviewed (increased effusion left side, with infiltrate. some right infiltrates. ), EMP read contemporaneously PD MEDICAL DECISION MAKING - ED course Complexity details: reviewed results (worsened efffusion and infiltrate left lung and some infiltrates right. Consider recurrent pneumonia, CHF (with elevated BNP significantly), COPD exac as well. Improved breathing with nebs and less wheezy sounding. Given IV laaix as well. BP is not too elevated, so held on nitrates. ), considered differential (COPD vs pneumonia vs CHF, effusion. Will test/check labs and xray. ), d/w patient Departure - Departure Disposition: [facility] DC/Xfer Clinical Impression: COPD exacerbation, Pleural effusion Dyspnea Qualifiers: Dyspnea type: shortness of breath Qualified Code(s): R06.02 - Shortness of breath CHF (congestive heart failure) Qualifiers: Congestive heart failure type: combined Congestive heart failure chronicity: acute on chronic Qualified Code(s): I50.43 - Acute on chronic combined systolic (congestive) and diastolic (congestive) heart failure Pneumonia Qualifiers: Pneumonia type: due to unspecified organism Laterality: left Lung location: lower lobe of lung Qualified Code(s): J18.1 - Lobar pneumonia, unspecified organism Condition: Stable Record reviewed to determine appropriate education?: Yes
[2017-01-07] MEDS ORDERED: IPRATROPIUM/ALBUTEROL 3 ML NEB INH STA (12:33)
--- NOTE | 2017-01-07 12:58 | XRAY Preliminary Report ---
Exam: XR Chest 1 View IMPRESSION: 1. Large left pleural effusion noted, increased compared to prior. 2. Associated collapse of the left lower lung, however, underlying process such as infection cannot b e excluded. 3. New nodular opacities project at the lateral aspect of the right lower lung. [facility] SITE ID: [id number]
[2017-01-07 13:00] LABS: BASOPHILS # (AUTO) 0.2 10^3/uL (0.0-0.1); BASOPHILS % (AUTO) 1.4 %; EOSINOPHILS # (AUTO) 0.1 10^3/uL (0.0-0.7); EOSINOPHILS % (AUTO) 0.5 %; HCT - HEMATOCRIT 37.6 % (37.0-47.0); HGB - HEMOGLOBIN 11.9 g/dL (12.0-16.0); LYMPHOCYTES # (AUTO) 1.6 10^3/uL (1.5-3.5); LYMPHOCYTES % (AUTO) 13.8 %; MEAN CORPUSCULAR HEMOGLOBIN 27.9 pg (27.0-31.0); MEAN CORPUSCULAR HGB CONC 31.5 g/dL (32.0-36.0); MEAN CORPUSCULAR VOLUME 88.4 fL (81.0-99.0); MEAN PLATELET VOLUME 7.3 fL (7.9-10.8); MONOCYTES # (AUTO) 0.6 10^3/uL (0.0-1.0); MONOCYTES % (AUTO) 5.2 %; NEUTROPHILS # (AUTO) 9.3 10^3/uL (1.5-6.6); NEUTROPHILS % (AUTO) 79.1 %; RED BLOOD COUNT 4.26 10^6/uL (4.20-5.40); RED CELL DISTRIBUTION WIDTH 18.2 % (12.0-15.0); UNCORRECTED WHITE BLOOD COUNT 11.8 x10^3/uL; WHITE BLOOD COUNT 11.8 x10^3/uL (4.8-10.8)
--- NOTE | 2017-01-07 13:01 | XRAY Report ---
EXAM: CHEST RADIOGRAPHY EXAM DATE: 01/07/2017 12:50 PM. CLINICAL HISTORY: Dyspnea. COMPARISON: 12/26/2016. TECHNIQUE: 1 view. FINDINGS: Lungs/Pleura: Large left pleural effusion is significantly increased compared to prior, increased lef t lower lobe airspace consolidation may represent atelectasis, however, underlying infection cannot b e extruded. Densities project over the left lateral lung base of unclear etiology. Mediastinum: Heart size is mildly increased compared to prior. Other: None. IMPRESSION: 1. Large left pleural effusion noted, increased compared to prior. 2. Associated collapse of the left lower lung, however, underlying process such as infection cannot b e excluded. 3. New nodular opacities project at the lateral aspect of the right lower lung. [facility] Referring Provider Line: [phone] SITE ID: [id number]
[2017-01-07 13:13] LABS: ALBUMIN/GLOBULIN RATIO 0.5 (1.0-2.2); BILIRUBIN,TOTAL 0.7 mg/dL (0.2-1.0); CALCIUM 7.7 mg/dL (8.5-10.3); CREATININE 0.6 mg/dL (0.4-1.0); MAGNESIUM 1.7 mg/dL (1.7-2.8); POTASSIUM 4.8 mmol/L (3.5-5.0); TOTAL PROTEIN 5.5 g/dL (6.7-8.2)
[2017-01-07] MEDS ORDERED: FUROSEMIDE 40 MG/4 ML VIAL IVP STA (13:32)
[2017-01-07 14:01] LABS: INR 3.2 (0.8-1.2); PT - PROTHROMBIN TIME 36.4 secs (9.9-12.6)
[2017-01-07] MEDS ORDERED: ALBUTEROL NEB 2.5 MG/3 ML INH STA (14:03)
[2017-01-07] MEDS ORDERED: FUROSEMIDE 40 MG/4 ML VIAL ONE (14:06)
[2017-01-07] MEDS ORDERED: SODIUM CHLORIDE FLUSH 0.9% 10 ML SYRINGE IVP ONE ×2 (14:07→16:58)
[2017-01-07] MEDS ORDERED: ACETAMINOPHEN 325 MG TABLET PO PRN (15:15)
[2017-01-07] MEDS ORDERED: ONDANSETRON 4 MG/2 ML VIAL IVP PRN (15:15)
[2017-01-07] MEDS ORDERED: CALCIUM GLUCONATE 1000 MG/10 ML VIAL IVP STA (15:47)
--- NOTE | 2017-01-07 16:34 | HISTORY & PHYSICAL EXAMINATION ---
Chief Complaint - Chief Complaint Chief Complaint: shortness of breathing History of Present Illness - Admitted From Admitted From:: emergence room - History Obtained From History obtained from: patient - History of Present Illness HPI Comment/Other: This is a 61-year-old Cauc[place] female with significant past medical history of CHF, COPD, hypertension, DM2, seizure, medical non-compliant, CAD with [facility] in 2015 which was complicated with ventricular thrombus and embolic events leading to a CVA and emboli to the bilateral lower extremities, then bilateral lower extremities was amputated, in the recent admission pt was found EF in ECHO was 20-25%, one large thrombus at left ventricular and another large thrombus at right ventricular, patient present hypotension and hypothermia, at that time patient report she stop taking Coumadin for a few years, who present emergence room today for evaluation of shortness of air. Patient report she did not get Nebs treatment in the [facility]. She has gradually got difficult to breath. Today morning, she report she just can not breath at all. She state she was disoriented in the [facility] today. patient report she felt feverish, and had cough in SNF. When I examine her in emergence room, she is no fever, no chill, no respiratory distress. She is 97% SO2 with 2L O2. Patient denies chest pain, headache, abdominal pain, nausea, vomiting, diarrhea, dysuria, vision issue. lab test reveal significant result, [id number], INR 3.2, calcium 7.7, WBC 11.8. CXR shows large left pleural effusion, possible left lobe pneumonia, and new nodular opacities at lateral aspect of right lower lung patient is admitted for evaluation fo shortness of breathing, CHF exacerbation and pneumonia. Review of Systems - Constitutional Constitutional: reports: Fatigue, Fever. denies: Malaise, Weakness, Poor appetite, Diaphoresis, Night sweats, Weight gain, Weight loss - Eyes Eyes: denies: Pain, Irritation, Amaurosis, Blurred vision, Spots in vision, Field loss, Vision loss, Dipolpia - Ears, Nose & Throat Ears, Nose & Throat: denies: Ear pain, Hearing loss, Hearing aids, Tinnitus, Vertigo, Nasal pain, Nasal discharge, Nosebleeds, Sore throat, Hoarseness, Bleeding gums - Cardiovascular Cariovascular: reports: Exertional dyspnea, Orthopnea. denies: Irregular heart rate, Palpitations, Chest pain, Edema, Lightheadedness, Syncope - Respiratory Respiratory: reports: Cough, Sputum production, Orthopnea, SOB with exertion. denies: Wheezing, Snoring, Hemoptysis, SOB at rest, Apnea - Gastrointestinal Gastrointestinal: reports: Constipation. denies: Abdominal pain, Abdominal distention, Diarrhea, Change in bowel habits, Rectal bleeding, Black stools, Bloody stools, Nausea, Vomiting, [place] blood emesis, Coffee grounds emesis - Genitourinary Genitourinary: denies: Dysuria, Frequency, Urgency, Hematuria, Incontinence, Flank pain, Nocturia - Musculoskeletal Musculoskeletal: denies: Muscle pain, Back pain, Muscle aches, Stiffness, Limited range of motion, Muscle weakness, Gout, Joint pain - Integumentary Integumentary: denies: Rash, Lesions, Dryness, Pigment changes - Neurological Neurological: denies: General weakness, Focal weakness, Headache, Dizziness, Numbness, Memory problems, Seizures, Incoordination, Slurred speech - Psychiatric Psychiatric: denies: Depression, Anxiety, Suicidal, Delusions, Hallucinations, Homicidal - Endocrine Endocrine: denies: Polyuria, Polydypsia, Polyphagia - Hematologic/Lymphatic Hematologic/Lymphatic: denies: Petechiae, Blood clots, Lymphadenopathy, Bleeding tendencies History - Past Medical History Cardiovascular: reports: Hypertension, Coronary artery disease, Deep vein thrombosis, [facility] Respiratory: reports: Asthma, COPD, Emphysema Neuro: reports: CVA, Head injury, Fainting Endocrine/Autoimmune: reports: Type 2 diabetes GI: reports: Hiatal hernia, Hemorrhoids, Diverticulitis : reports: None Psych: reports: Depression, Anxiety Musculoskeletal: reports: Gout Derm: reports: None MRSA Hx?: Yes - Past Surgical History General: reports: Appendectomy, Bowel surgery 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 - Family & Social History Family History: Mother: , Father: Living arrangement: At home Living Situation: With family - Substance History Use: Uses substance without health or social issues: NONE Abuse: Recurrent use of substance despite neg consequences: NONE - POLST Patient has POLST: No POLST Status: Full Code Meds/Allgy - Home Medications Home Medications: Ambulatory Orders Medication Instructions Recorded Confirmed Warfarin Sodium [Coumadin] 5 mg PO DAILY 01/15/15 12/23/16 Spironolactone 25 mg ORAL BID 11/01/16 12/23/16 Ascorbic Acid [Vitamin C] 500 mg PO DAILY 12/22/16 12/23/16 Ferrous Sulfate 325 mg PO BIDWM 12/22/16 12/23/16 Multivit with Calcium,Iron,Min 1 each PO DAILY 12/22/16 12/23/16 [Multiple Vitamins For Women] Aspirin Chewable [St Chris 81 mg PO DAILY tablet 12/31/16 Aspirin] Atorvastatin [Lipitor] 80 mg PO QPM tablet 12/31/16 Carvedilol [Coreg] 12.5 mg PO BID tablet 12/31/16 DULoxetine [Cymbalta] 60 mg PO DAILY capsule 12/31/16 Gabapentin [Neurontin] 100 mg PO BID capsule 12/31/16 Lisinopril [Zestril] 2.5 mg PO DAILY tablet 12/31/16 Magnesium Oxide [Mag Ox] 400 mg PO DAILYWM tablet 12/31/16 traMADol [Ultram] 25 mg PO Q12H PRN #10 tablet 12/31/16 - Allergies Allergies/Adverse Reactions: Allergies Allergy/AdvReac Type Severity Reaction Status Date / Time latex Allergy Unknown Verified 11/01/16 12:58 levofloxacin Allergy Itching Verified 07/15/15 11:57 levopropoxyphene Allergy Unknown Verified 11/01/16 12:58 Penicillins Allergy Hives Verified 07/15/15 11:57 Exam - Vital Signs Reviewed Vital Signs: Yes Vital Signs: Vital Signs x48h Pulse Resp BP 01/07/17 15:23 74 14 125/76 - Physical Exam General Appearance: positive: No acute distress, Alert. negative: Lethargic Eyes Bilateral: positive: Normal inspection, PERRL. negative: No lid inflammation, Conjunctivae nml ENT: positive: ENT inspection nml, Pharynx nml, No signs of dehydration. negative: Purulent nasal drainage, Pharyngeal erythema Neck: positive: Nml inspection, Thyroid nml, No JVD, Trachea midline. negative : Lymphadenopathy (R), Lymphadenopathy (L), Stiff neck, Swelling/bruising, Tracheal deviation Respiratory: positive: Chest non-tender, No respiratory distress, Other ( signficant diminished sound at left lung). negative: Wheezes, Rales Cardiovascular: positive: Regular rate & rhythm, No murmur, No gallop. negative : Tachycardia, Bradycardia, Systolic murmur, Diastolic murmur Peripheral Pulses: positive: 2+ Abdomen: positive: Non-tender, No organomegaly, No distention, Other (diminish bowel sounds at all quadrants). negative: Tenderness, Guarding, Rebound Back: positive: Nml inspection. negative: CVA tenderness (R), CVA tenderness (L ) Skin: positive: Color nml, No rash, Warm, Dry. negative: Diaphoresis, Skin rash Extremities: positive: Non-tender, Full ROM, Other (amputated bilatera lower extremities) Neurologic/Psychiatric: positive: Oriented x3, Mood/affect nml Conclusion/Plan - Problem List (1) CHF (congestive heart failure) Qualifiers: Congestive heart failure type: combined Congestive heart failure chronicity : acute on chronic Qualified Code(s): I50.43 - Acute on chronic combined systolic (congestive) and diastolic (congestive) heart failure (2) CHF exacerbation Conclusion/Plan: [id number], recent ECHO reveals significant lower EF, orthopnea, SOB Lasix IV check CMP to check electrolytic closely strict I&O tele, vital per protocol (4) Pleural effusion Conclusion/Plan: large pleural effusion at left lung. it appears chronic, last ECHO show pt with significant pleural effusion consult with surgeon Since clinic pt does not have significant respiratory distress at this moment, continue to closely monitor lasix strict I&O rise the bed (5) Pneumonia Conclusion/Plan: pt is 97% SO2 with 2 L O2, no fever, chill, no cough at this time Azithymycin PO, closely monitor if need further intervention Duoneb, consult RT Qualifiers: Pneumonia type: due to unspecified organism Laterality: left Lung location: lower lobe of lung Qualified Code(s): J18.1 - Lobar pneumonia, unspecified organism (6) History of thrombosis Conclusion/Plan: continue to check PT/INR daily, today INR 3.2 continue Coumadin (7) DM2 (diabetes mellitus, type 2) Conclusion/Plan: stable, reconciliation of home medication, check A1C slide scale Qualifiers: Diabetes mellitus complication detail: with other neurological complication (8) Hypocalcemia Conclusion/Plan: today Ca 7.7, replacement calcium, recheck CMP - Lab Results Fish Bones: 01/07/17 12:54 01/07/17 12:54 Issues/Core Measures - Anticipated LOS Anticipated Stay Length: 2 or more midnights (pt with CHF exacerbation, pneumonia, may need two more days)
[2017-01-07] MEDS: INSULIN ASPART 300 UNIT/3 ML PEN SUBQ SCH ×2 (16:48→21:07)
[2017-01-07] MEDS ORDERED: CALCIUM GLUCONATE 1,000 MG in SODIUM CHLORIDE 0.9% 50 ML IV SCH (17:00)
[2017-01-07 17:05] LABS: HEMOGLOBIN A1C 0.93 g/dL
--- NOTE | 2017-01-07 20:16 | XRAY Preliminary Report ---
Exam: XR Abdomen 1 View IMPRESSION: No evidence of acute abdominal process. [facility] SITE ID: [id number]
--- NOTE | 2017-01-07 20:19 | XRAY Report ---
EXAM: ABDOMEN RADIOGRAPHY EXAM DATE: 01/07/2017 06:47 PM. CLINICAL HISTORY: Prior bowel sounds. Constipation. COMPARISON: None. TECHNIQUE: 1 view. FINDINGS: Bowel Gas Pattern: Within normal limits. No dilated loops. Other: None. IMPRESSION: No evidence of acute abdominal process. [facility] Referring Provider Line: [phone] SITE ID: [id number]
[2017-01-07] MEDS ORDERED: MIN OIL/DIMETHICON/COCONUT OIL 92 GM TUBE TOP PRN (20:21)
[2017-01-07] MEDS ORDERED: FUROSEMIDE 40 MG/4 ML VIAL IVP SCH (21:00)
[2017-01-07] MEDS: SODIUM CHLORIDE FLUSH 0.9% 10 ML SYRINGE IVP SCH (21:34)
[2017-01-08 05:18] LABS: BASOPHILS # (AUTO) 0.1 10^3/uL (0.0-0.1); BASOPHILS % (AUTO) 0.7 %; EOSINOPHILS # (AUTO) 0.1 10^3/uL (0.0-0.7); EOSINOPHILS % (AUTO) 0.9 %; HCT - HEMATOCRIT 38.2 % (37.0-47.0); HGB - HEMOGLOBIN 12.2 g/dL (12.0-16.0); LYMPHOCYTES # (AUTO) 1.8 10^3/uL (1.5-3.5); LYMPHOCYTES % (AUTO) 15.5 %; MEAN CORPUSCULAR HEMOGLOBIN 28.2 pg (27.0-31.0); MEAN CORPUSCULAR HGB CONC 31.9 g/dL (32.0-36.0); MEAN CORPUSCULAR VOLUME 88.3 fL (81.0-99.0); MEAN PLATELET VOLUME 7.4 fL (7.9-10.8); MONOCYTES # (AUTO) 0.9 10^3/uL (0.0-1.0); MONOCYTES % (AUTO) 7.6 %; NEUTROPHILS # (AUTO) 8.8 10^3/uL (1.5-6.6); NEUTROPHILS % (AUTO) 75.3 %; RED BLOOD COUNT 4.32 10^6/uL (4.20-5.40); RED CELL DISTRIBUTION WIDTH 18.7 % (12.0-15.0); UNCORRECTED WHITE BLOOD COUNT 11.7 x10^3/uL; WHITE BLOOD COUNT 11.7 x10^3/uL (4.8-10.8)
[2017-01-08 05:23] LABS: INR 2.9 (0.8-1.2); PT - PROTHROMBIN TIME 32.6 secs (9.9-12.6)
[2017-01-08 05:34] LABS: ALBUMIN/GLOBULIN RATIO 0.5 (1.0-2.2); BILIRUBIN,TOTAL 0.7 mg/dL (0.2-1.0); CALCIUM 7.8 mg/dL (8.5-10.3); CREATININE 0.7 mg/dL (0.4-1.0); POTASSIUM 4.5 mmol/L (3.5-5.0); TOTAL PROTEIN 5.6 g/dL (6.7-8.2)
[2017-01-08] MEDS: SODIUM CHLORIDE FLUSH 0.9% 10 ML SYRINGE IVP SCH ×3 (06:23→22:09)
[2017-01-08] MEDS ORDERED: ALBUTEROL NEB 2.5 MG/3 ML INH PRN (07:10)
[2017-01-08] MEDS: IPRATROPIUM/ALBUTEROL 3 ML NEB INH PRN (07:45)
[2017-01-08] MEDS: INSULIN ASPART 300 UNIT/3 ML PEN SUBQ SCH ×4 (08:57→22:05)
[2017-01-08] MEDS: POLYETHYLENE GLYCOL 3350 17 GM PACKET PO SCH (08:57)
[2017-01-08] MEDS: SODIUM CHLORIDE FLUSH 0.9% 10 ML SYRINGE IVP PRN ×3 (08:58→19:27)
[2017-01-08] MEDS: SPIRONOLACTONE 25 MG TABLET PO SCH ×2 (08:58→20:17)
[2017-01-08] MEDS: CARVEDILOL 12.5 MG TABLET PO SCH ×2 (08:59→20:17)
[2017-01-08] MEDS: DULoxetine 20 MG CAPSULE PO SCH (08:59)
[2017-01-08] MEDS: ASPIRIN CHEW 81 MG TABLET PO SCH (09:00)
[2017-01-08] MEDS ORDERED: FAMOTIDINE 20 MG TABLET PO SCH ×2 (09:00→18:22)
[2017-01-08] MEDS ORDERED: FUROSEMIDE 40 MG/4 ML VIAL IVP SCH (09:00)
[2017-01-08] MEDS: LISINOPRIL 5 MG TABLET PO SCH (09:00)
[2017-01-08] MEDS: AZITHROMYCIN 250 MG TABLET PO SCH (09:12)
--- NOTE | 2017-01-08 10:16 | PROVIDER PROGRESS NOTE ---
Subjective - Prog Note Date Prog Note Date: 01/08/17 - Subjective Pt reports feeling: Improved Subjective: pt report she feels "much much better". she report she like the food in the hospital. She denies chest pain, shortness of air. Current Medications - Current Medications Current Medications: Active Medications Acetaminophen (Tylenol) 650 mg PO Q4HR PRN PRN Reason: Pain 1 to 4 Albuterol () 2.5 mg INH RTQ4H PRN PRN Reason: Wheezing Albuterol/Ipratropium (Duoneb) 3 ml INH Q4HR PRN PRN Reason: Wheezing Last Admin: 01/08/17 07:45 Dose: 3 ml Aspirin ([facility] Aspirin) 81 mg PO DAILY [facility] Last Admin: 01/08/17 09:00 Dose: 81 mg Atorvastatin Calcium (Lipitor) 80 mg PO QPM [facility] Azithromycin (Zithromax) 500 mg PO DAILY [facility] Last Admin: 01/08/17 09:12 Dose: 500 mg Carvedilol (Coreg) 12.5 mg PO BID [facility] Last Admin: 01/08/17 08:59 Dose: 12.5 mg Duloxetine HCl (Cymbalta) 60 mg PO DAILY [facility] Last Admin: 01/08/17 08:59 Dose: 60 mg Famotidine (Pepcid) 20 mg PO DAILY [facility] Last Admin: 01/08/17 08:59 Dose: 20 mg Furosemide (Lasix Inj 40 Mg Vial) 40 mg IVP DAILY [facility] Last Admin: 01/08/17 08:58 Dose: 40 mg Insulin Aspart (Novolog) 1 - 5 unit SUBQ 0800,1200,1700,2100 [facility] PRN Reason: Protocol Last Admin: 01/08/17 08:57 Dose: Not Given Lisinopril (Zestril) 2.5 mg PO DAILY [facility] Last Admin: 01/08/17 09:00 Dose: 2.5 mg Mineral Oil (Cavilon) 1 applic TOP PRN PRN PRN Reason: Skin Care Ondansetron HCl (Zofran Inj) 4 mg IVP Q6HR PRN PRN Reason: Nausea / Vomiting Polyethylene Glycol (Miralax) 17 gm PO DAILY [facility] Last Admin: 01/08/17 08:57 Dose: Not Given Sodium Chloride (Normal Saline Flush 0.9%) 10 ml IVP PRN PRN PRN Reason: NEEDED PER PROVIDER ORDERS Last Admin: 01/08/17 08:58 Dose: 10 ml Sodium Chloride (Normal Saline Flush 0.9%) 10 ml IVP Q8HR [facility] Last Admin: 01/08/17 06:23 Dose: 10 ml Spironolactone (Aldactone) 25 mg PO BID [facility] Last Admin: 01/08/17 08:58 Dose: 25 mg Warfarin Sodium [Coumadin] 5 mg PO DAILY 01/15/15 Spironolactone 25 mg ORAL BID 11/01/16 Ascorbic Acid [Vitamin C] 500 mg PO DAILY 12/22/16 Ferrous Sulfate 325 mg PO BIDWM 12/22/16 Multivit with Calcium,Iron,Min [Multiple Vitamins For Women] 1 each PO DAILY 08/05 Objective - Vital Signs/Intake & Output Reviewed Vital Signs: Yes Vital Signs: Vital Signs x48h Temp Pulse Pulse Resp BP BP Pulse Ox 01/08/17 08:14 137/79 H 01/08/17 07:45 82 18 01/08/17 07:26 36.8 C 75 16 137/79 H 99 01/08/17 04:15 36.7 C 84 16 141/84 H 98 Intake & Output: Intake & Output 01/05/17 01/06/17 01/07/17 01/08/17 23:59 23:59 23:59 23:59 Intake Total 340 440 Balance 340 440 - Objective General Appearance: positive: No acute distress, Alert. negative: Lethargic Eyes Bilateral: positive: Normal inspection, PERRL, EOMI. negative: No lid inflammation, Conjunctivae nml ENT: positive: ENT inspection nml, Pharynx nml, No signs of dehydration. negative: Purulent nasal drainage, Pharyngeal erythema Neck: positive: Nml inspection, Thyroid nml, Trachea midline Respiratory: positive: Chest non-tender, No respiratory distress, Other ( diminish lung sound at left lower lobe) Cardiovascular: positive: Regular rate & rhythm, No murmur, No gallop. negative : Tachycardia, Bradycardia, Systolic murmur, Diastolic murmur Peripheral Pulses: 2+ Radial (R), 2+ Radial (L) Abdomen: positive: Non-tender, Nml bowel sounds, No distention. negative: Tenderness, Guarding, Rebound Back: positive: Nml inspection. negative: CVA tenderness (R), CVA tenderness (L ) Skin: positive: Color nml, No rash, Dry. negative: Diaphoresis, Skin rash Extremities: positive: Non-tender, Other (amputation of bilateral lower extremities) Neurologic/Psychiatric: positive: Oriented x3, Sensation nml, Mood/affect nml. negative: Sensory loss, Facial droop, Slurred/abnml speech, Depressed mood/ affect - Lab Results Fish Bones: 01/08/17 05:00 01/08/17 05:00 Other Labs: Lab Results x24hrs 01/08/17 01/08/17 01/08/17 Range/Units 07:22 05:26 05:00 WBC (4.8-10.8) x10^3/uL RBC (4.20-5.40) 10^6/uL Hgb (12.0-16.0) g/dL Hct (37.0-47.0) % MCV (81.0-99.0) fL MCH (27.0-31.0) pg MCHC (32.0-36.0) g/dL RDW (12.0-15.0) % Plt Count (130-450) 10^3/uL MPV (7.9-10.8) fL Neut # (1.5-6.6) 10^3/uL Lymph # (1.5-3.5) 10^3/uL [place] # (0.0-1.0) 10^3/uL Eos # (0.0-0.7) 10^3/uL Baso # (0.0-0.1) 10^3/uL Absolute Nucleated RBC x10^3/uL Nucleated RBCs /100WBC PT 32.6 H (9.9-12.6) secs INR 2.9 H (0.8-1.2) Sodium (135-145) mmol/L Potassium (3.5-5.0) mmol/L Chloride (101-111) mmol/L Carbon Dioxide (21-32) mmol/L Anion Gap (6-13) BUN (6-20) mg/dL Creatinine (0.4-1.0) mg/dL Estimated GFR (MDRD) (>89) Glucose (70-100) mg/dL POC Whole Bld Glucose 132 H (70 - 100) mg/dL Calcium (8.5-10.3) mg/dL Total Bilirubin (0.2-1.0) mg/dL AST (10-42) IU/L ALT (10-60) IU/L Alkaline Phosphatase (42-121) IU/L B-Natriuretic Peptide 3052 H (5-100) pg/mL Total Protein (6.7-8.2) g/dL Albumin (3.2-5.5) g/dL Globulin (2.1-4.2) g/dL Albumin/Globulin Ratio (1.0-2.2) 01/08/17 01/08/17 01/07/17 Range/Units 05:00 05:00 20:43 WBC 11.7 H (4.8-10.8) x10^3/uL RBC 4.32 (4.20-5.40) 10^6/uL Hgb 12.2 (12.0-16.0) g/dL Hct 38.2 (37.0-47.0) % MCV 88.3 (81.0-99.0) fL MCH 28.2 (27.0-31.0) pg MCHC 31.9 L (32.0-36.0) g/dL RDW 18.7 H (12.0-15.0) % Plt Count 293 (130-450) 10^3/uL MPV 7.4 L (7.9-10.8) fL Neut # 8.8 H (1.5-6.6) 10^3/uL Lymph # 1.8 (1.5-3.5) 10^3/uL [place] # 0.9 (0.0-1.0) 10^3/uL Eos # 0.1 (0.0-0.7) 10^3/uL Baso # 0.1 (0.0-0.1) 10^3/uL Absolute Nucleated RBC 0.00 x10^3/uL Nucleated RBCs 0.0 /100WBC PT (9.9-12.6) secs INR (0.8-1.2) Sodium 135 (135-145) mmol/L Potassium 4.5 (3.5-5.0) mmol/L Chloride 99 L (101-111) mmol/L Carbon Dioxide 32 (21-32) mmol/L Anion Gap 4.0 L (6-13) BUN 23 H (6-20) mg/dL Creatinine 0.7 (0.4-1.0) mg/dL Estimated GFR (MDRD) 86 L (>89) Glucose 155 H (70-100) mg/dL POC Whole Bld Glucose 205 H (70 - 100) mg/dL Calcium 7.8 L (8.5-10.3) mg/dL Total Bilirubin 0.7 (0.2-1.0) mg/dL AST 19 (10-42) IU/L ALT 23 (10-60) IU/L Alkaline Phosphatase 66 (42-121) IU/L B-Natriuretic Peptide (5-100) pg/mL Total Protein 5.6 L (6.7-8.2) g/dL Albumin 1.9 L (3.2-5.5) g/dL Globulin 3.7 (2.1-4.2) g/dL Albumin/Globulin Ratio 0.5 L (1.0-2.2) // Range/Units 16:43 WBC (4.8-10.8) x10^3/uL RBC (4.20-5.40) 10^6/uL Hgb (12.0-16.0) g/dL Hct (37.0-47.0) % MCV (81.0-99.0) fL MCH (27.0-31.0) pg MCHC (32.0-36.0) g/dL RDW (12.0-15.0) % Plt Count (130-450) 10^3/uL MPV (7.9-10.8) fL Neut # (1.5-6.6) 10^3/uL Lymph # (1.5-3.5) 10^3/uL [place] # (0.0-1.0) 10^3/uL Eos # (0.0-0.7) 10^3/uL Baso # (0.0-0.1) 10^3/uL Absolute Nucleated RBC x10^3/uL Nucleated RBCs /100WBC PT (9.9-12.6) secs INR (0.8-1.2) Sodium (135-145) mmol/L Potassium (3.5-5.0) mmol/L Chloride (101-111) mmol/L Carbon Dioxide (21-32) mmol/L Anion Gap (6-13) BUN (6-20) mg/dL Creatinine (0.4-1.0) mg/dL Estimated GFR (MDRD) (>89) Glucose (70-100) mg/dL POC Whole Bld Glucose 103 H (70 - 100) mg/dL Calcium (8.5-10.3) mg/dL Total Bilirubin (0.2-1.0) mg/dL AST (10-42) IU/L ALT (10-60) IU/L Alkaline Phosphatase (42-121) IU/L B-Natriuretic Peptide (5-100) pg/mL Total Protein (6.7-8.2) g/dL Albumin (3.2-5.5) g/dL Globulin (2.1-4.2) g/dL Albumin/Globulin Ratio (1.0-2.2) Assessment/Plan - Problem List (1) CHF (congestive heart failure) Impression: pt report she feel much much better than e yesterday, no shortness of breathing , no chest pain BNP from 4300 down to 3000 continue lasix, check CMP daily resume of some pt's home meds, reconciliation of home meds from pharmacy is pending Qualifiers: Congestive heart failure type: combined Congestive heart failure chronicity : acute on chronic Qualified Code(s): I50.43 - Acute on chronic combined systolic (congestive) and diastolic (congestive) heart failure (2) CHF exacerbation Impression: pt report she feel much much better than e yesterday, no shortness of breathing , no chest pain BNP from 4300 down to 3000 continue lasix, check CMP daily resume of some pt's home meds, reconciliation of home meds from pharmacy is pending I&O restriction (3) COPD exacerbation Impression: no respiratory distress. no SOB continue Duoneb treatment, hold steroid now (4) Pleural effusion Impression: consulted with surgeon. since pt is clinic stable, continue lasix, will check image before D/C. (5) Pneumonia Impression: pt is no cough, fever, chill, clinic stable. continue PO Azithy Qualifiers: Pneumonia type: due to unspecified organism Laterality: left Lung location: lower lobe of lung Qualified Code(s): J18.1 - Lobar pneumonia, unspecified organism (6) History of thrombosis Impression: continue check pt/INR, will resume Coumadin. Pt's INR 2.9 today (7) DM2 (diabetes mellitus, type 2) Impression: stable, good controlled glucose, continue to treat with slide scale and home meds Qualifiers: Diabetes mellitus complication detail: with other neurological complication (8) Hypocalcemia Impression: better than yesterday but still lower, give another calcium
[2017-01-08] MEDS ORDERED: CALCIUM GLUCONATE 1,000 MG in SODIUM CHLORIDE 0.9% 50 ML IV SCH (12:00)
[2017-01-08] MEDS ORDERED: WARFARIN 5 MG TABLET PO SCH ×2 (14:00→18:19)
[2017-01-08] MEDS ORDERED: NITROGLYCERIN SL 0.4 MG TABLET SL PRN (18:21)
[2017-01-08] MEDS ORDERED: CALCIUM CARBONATE CHEW 500 MG TABLET PO PRN (18:23)
[2017-01-08] MEDS ORDERED: MORPHINE 2 MG/ML CARPUJECT IVP PRN (18:24)
[2017-01-08] MEDS: FUROSEMIDE 40 MG/4 ML VIAL IVP SCH (19:25)
[2017-01-08] MEDS: ATORVASTATIN 40 MG TABLET PO SCH (20:17)
[2017-01-09 06:00] LABS: BASOPHILS # (AUTO) 0.1 10^3/uL (0.0-0.1); BASOPHILS % (AUTO) 0.7 %; EOSINOPHILS # (AUTO) 0.1 10^3/uL (0.0-0.7); EOSINOPHILS % (AUTO) 0.6 %; HCT - HEMATOCRIT 37.6 % (37.0-47.0); HGB - HEMOGLOBIN 11.8 g/dL (12.0-16.0); LYMPHOCYTES # (AUTO) 1.9 10^3/uL (1.5-3.5); LYMPHOCYTES % (AUTO) 15.5 %; MEAN CORPUSCULAR HEMOGLOBIN 27.7 pg (27.0-31.0); MEAN CORPUSCULAR HGB CONC 31.3 g/dL (32.0-36.0); MEAN CORPUSCULAR VOLUME 88.5 fL (81.0-99.0); MEAN PLATELET VOLUME 7.3 fL (7.9-10.8); MONOCYTES # (AUTO) 0.9 10^3/uL (0.0-1.0); MONOCYTES % (AUTO) 7.6 %; NEUTROPHILS # (AUTO) 9.2 10^3/uL (1.5-6.6); NEUTROPHILS % (AUTO) 75.6 %; RED BLOOD COUNT 4.25 10^6/uL (4.20-5.40); RED CELL DISTRIBUTION WIDTH 18.4 % (12.0-15.0); UNCORRECTED WHITE BLOOD COUNT 12.2 x10^3/uL; WHITE BLOOD COUNT 12.2 x10^3/uL (4.8-10.8)
[2017-01-09 06:08] LABS: INR 2.7 (0.8-1.2); PT - PROTHROMBIN TIME 30.3 secs (9.9-12.6)
[2017-01-09 06:13] LABS: ALBUMIN/GLOBULIN RATIO 0.5 (1.0-2.2); BILIRUBIN,TOTAL 0.7 mg/dL (0.2-1.0); CALCIUM 7.6 mg/dL (8.5-10.3); CREATININE 0.7 mg/dL (0.4-1.0); MAGNESIUM 1.3 mg/dL (1.7-2.8); POTASSIUM 4.3 mmol/L (3.5-5.0); TOTAL PROTEIN 5.5 g/dL (6.7-8.2)
[2017-01-09] MEDS: FUROSEMIDE 40 MG/4 ML VIAL IVP SCH ×2 (06:31→13:04)
[2017-01-09] MEDS: SODIUM CHLORIDE FLUSH 0.9% 10 ML SYRINGE IVP SCH ×3 (06:31→22:14)
[2017-01-09] MEDS: AZITHROMYCIN 250 MG TABLET PO SCH (08:36)
[2017-01-09] MEDS: SPIRONOLACTONE 25 MG TABLET PO SCH ×2 (08:37→20:31)
[2017-01-09] MEDS: DULoxetine 20 MG CAPSULE PO SCH (08:37)
[2017-01-09] MEDS: CARVEDILOL 12.5 MG TABLET PO SCH ×2 (08:37→20:30)
[2017-01-09] MEDS: LISINOPRIL 5 MG TABLET PO SCH (08:38)
[2017-01-09] MEDS: ASPIRIN CHEW 81 MG TABLET PO SCH (08:38)
[2017-01-09] MEDS: FAMOTIDINE 20 MG TABLET PO SCH (08:39)
[2017-01-09] MEDS ORDERED: SODIUM CHLORIDE 0.9% 50 ML IV ONE (08:47)
[2017-01-09] MEDS ORDERED: SODIUM CHLORIDE FLUSH 0.9% 10 ML SYRINGE IVP ONE (08:47)
[2017-01-09] MEDS: MAGNESIUM OXIDE 400 MG TABLET PO SCH ×2 (08:49→20:31)
[2017-01-09] MEDS: INSULIN ASPART 300 UNIT/3 ML PEN SUBQ SCH ×4 (08:50→22:05)
[2017-01-09] MEDS: POLYETHYLENE GLYCOL 3350 17 GM PACKET PO SCH (08:51)
[2017-01-09] MEDS ORDERED: CALCIUM GLUCONATE 1,000 MG in SODIUM CHLORIDE 0.9% 50 ML IV SCH (09:00)
--- NOTE | 2017-01-09 09:23 | PROVIDER PROGRESS NOTE ---
Subjective - Subjective Pt reports feeling: Improved Subjective: pt continue to report to me she feel much better, no more chest pain. No shortness of breathing. Current Medications - Current Medications Current Medications: Active Medications Acetaminophen (Tylenol) 650 mg PO Q4HR PRN PRN Reason: Pain 1 to 4 Albuterol () 2.5 mg INH RTQ4H PRN PRN Reason: Wheezing Albuterol/Ipratropium (Duoneb) 3 ml INH Q4HR PRN PRN Reason: Wheezing Last Admin: 01/08/17 07:45 Dose: 3 ml Aspirin ([facility] Aspirin) 81 mg PO DAILY [facility] Last Admin: 01/09/17 08:38 Dose: 81 mg Atorvastatin Calcium (Lipitor) 80 mg PO QPM [facility] Last Admin: 01/08/17 20:17 Dose: 80 mg Calcium Carbonate/Glycine (Tums) 500 mg PO PRN PRN PRN Reason: Heartburn Last Admin: 01/08/17 19:25 Dose: 500 mg Carvedilol (Coreg) 12.5 mg PO BID [facility] Last Admin: 01/09/17 08:37 Dose: 12.5 mg Duloxetine HCl (Cymbalta) 60 mg PO DAILY [facility] Last Admin: 01/09/17 08:37 Dose: 60 mg Famotidine (Pepcid) 20 mg PO DAILY [facility] Last Admin: 01/09/17 08:39 Dose: 20 mg Furosemide (Lasix Inj 40 Mg Vial) 40 mg IVP BIDDIURETIC [facility] Last Admin: 01/09/17 06:31 Dose: 40 mg Calcium Gluconate 1,000 mg/ (Sodium Chloride) 60 mls @ 240 mls/hr IV ONCE [facility] Stop: 01/09/17 10:00 Cefepime HCl 1 gm/ Sodium (Chloride) 100 mls @ 200 mls/hr IV TID [facility] Insulin Aspart (Novolog) 1 - 5 unit SUBQ 0800,1200,1700,2100 [facility] PRN Reason: Protocol Last Admin: 01/09/17 08:50 Dose: Not Given Lisinopril (Zestril) 2.5 mg PO DAILY [facility] Last Admin: 01/09/17 08:38 Dose: 2.5 mg Magnesium Oxide (Mag Ox) 400 mg PO BID [facility] Last Admin: 01/09/17 08:49 Dose: 400 mg Mineral Oil (Cavilon) 1 applic TOP PRN PRN PRN Reason: Skin Care Morphine Sulfate (Morphine) 4 mg IVP Q4H PRN PRN Reason: PAIN Nitroglycerin (Nitrostat) 0.4 mg SL Q5MIN PRN PRN Reason: Chest Pain Last Admin: 01/08/17 18:37 Dose: 0.4 mg Ondansetron HCl (Zofran Inj) 4 mg IVP Q6HR PRN PRN Reason: Nausea / Vomiting Polyethylene Glycol (Miralax) 17 gm PO DAILY [facility] Last Admin: 01/09/17 08:51 Dose: Not Given Sodium Chloride (Normal Saline Flush 0.9%) 10 ml IVP PRN PRN PRN Reason: NEEDED PER PROVIDER ORDERS Last Admin: 01/08/17 19:27 Dose: 10 ml Sodium Chloride (Normal Saline Flush 0.9%) 10 ml IVP Q8HR [facility] Last Admin: 01/09/17 06:31 Dose: 10 ml Spironolactone (Aldactone) 25 mg PO BID [facility] Last Admin: 01/09/17 08:37 Dose: 25 mg Warfarin Sodium [Coumadin] 5 mg PO DAILY 01/15/15 Spironolactone 25 mg ORAL BID 11/01/16 Ascorbic Acid [Vitamin C] 500 mg PO DAILY 12/22/16 Ferrous Sulfate 325 mg PO BIDWM 12/22/16 Multivit with Calcium,Iron,Min [Multiple Vitamins For Women] 1 each PO DAILY 08/05 Objective - Vital Signs/Intake & Output Reviewed Vital Signs: Yes Vital Signs: Vital Signs x48h Temp Pulse Resp BP Pulse Ox 01/09/17 08:05 36.9 C 77 18 128/82 H 91 L 01/09/17 05:50 36.6 C 77 16 121/77 94 Intake & Output: Intake & Output 01/06/17 01/07/17 01/08/17 01/09/17 23:59 23:59 23:59 23:59 Intake Total 340 640 200 Output Total 1300 Balance 340 -660 200 - Objective General Appearance: positive: No acute distress, Alert. negative: Lethargic Eyes Bilateral: positive: Normal inspection, PERRL. negative: No lid inflammation, Conjunctivae nml ENT: positive: ENT inspection nml, Pharynx nml. negative: Purulent nasal drainage, Pharyngeal erythema Neck: positive: Nml inspection, Thyroid nml, Trachea midline. negative: Thyromegaly, Lymphadenopathy (R), Lymphadenopathy (L), Stiff neck, Tracheal deviation Respiratory: positive: Chest non-tender, No respiratory distress, Other ( diminished lung sound at left lower lobe) Cardiovascular: positive: Regular rate & rhythm. negative: No murmur, Tachycardia, Bradycardia, Systolic murmur, Diastolic murmur Peripheral Pulses: 2+ Radial (R), 2+ Radial (L), 2+ Dorsalis pedis (R), 2+ Dorsalis pedis (L) Abdomen: positive: Non-tender, Nml bowel sounds, No distention. negative: Tenderness, Guarding, Rebound Back: positive: Nml inspection. negative: CVA tenderness (R), CVA tenderness (L ) Skin: positive: Color nml, Warm, Dry. negative: Diaphoresis, Skin rash Extremities: negative: Non-tender, Joint swelling Neurologic/Psychiatric: positive: Oriented x3, Sensation nml, Mood/affect nml, Weakness. negative: Sensory loss, Facial droop, Slurred/abnml speech, Depressed mood/affect - Lab Results Fish Bones: 01/09/17 05:49 01/09/17 05:49 Other Labs: Lab Results x24hrs 01/09/17 01/09/17 01/09/17 Range/Units 07:49 05:49 05:49 WBC (4.8-10.8) x10^3/uL RBC (4.20-5.40) 10^6/uL Hgb (12.0-16.0) g/dL Hct (37.0-47.0) % MCV (81.0-99.0) fL MCH (27.0-31.0) pg MCHC (32.0-36.0) g/dL RDW (12.0-15.0) % Plt Count (130-450) 10^3/uL MPV (7.9-10.8) fL Neut # (1.5-6.6) 10^3/uL Lymph # (1.5-3.5) 10^3/uL [place] # (0.0-1.0) 10^3/uL Eos # (0.0-0.7) 10^3/uL Baso # (0.0-0.1) 10^3/uL Absolute Nucleated RBC x10^3/uL Nucleated RBCs /100WBC PT (9.9-12.6) secs INR (0.8-1.2) Sodium (135-145) mmol/L Potassium (3.5-5.0) mmol/L Chloride (101-111) mmol/L Carbon Dioxide (21-32) mmol/L Anion Gap (6-13) BUN (6-20) mg/dL Creatinine (0.4-1.0) mg/dL Estimated GFR (MDRD) (>89) Glucose (70-100) mg/dL POC Whole Bld Glucose 131 H (70 - 100) mg/dL Lactic Acid 0.7 (0.5-2.2) mmol/L Calcium (8.5-10.3) mg/dL Magnesium (1.7-2.8) mg/dL Total Bilirubin (0.2-1.0) mg/dL AST (10-42) IU/L ALT (10-60) IU/L Alkaline Phosphatase (42-121) IU/L Troponin I (<0.49) ng/mL B-Natriuretic Peptide 2457 H (5-100) pg/mL Total Protein (6.7-8.2) g/dL Albumin (3.2-5.5) g/dL Globulin (2.1-4.2) g/dL Albumin/Globulin Ratio (1.0-2.2) 01/09/17 01/09/17 01/09/17 Range/Units 05:49 05:49 05:49 WBC 12.2 H (4.8-10.8) x10^3/uL RBC 4.25 (4.20-5.40) 10^6/uL Hgb 11.8 L (12.0-16.0) g/dL Hct 37.6 (37.0-47.0) % MCV 88.5 (81.0-99.0) fL MCH 27.7 (27.0-31.0) pg MCHC 31.3 L (32.0-36.0) g/dL RDW 18.4 H (12.0-15.0) % Plt Count 291 (130-450) 10^3/uL MPV 7.3 L (7.9-10.8) fL Neut # 9.2 H (1.5-6.6) 10^3/uL Lymph # 1.9 (1.5-3.5) 10^3/uL [place] # 0.9 (0.0-1.0) 10^3/uL Eos # 0.1 (0.0-0.7) 10^3/uL Baso # 0.1 (0.0-0.1) 10^3/uL Absolute Nucleated RBC 0.00 x10^3/uL Nucleated RBCs 0.0 /100WBC PT 30.3 H (9.9-12.6) secs INR 2.7 H (0.8-1.2) Sodium 131 L (135-145) mmol/L Potassium 4.3 (3.5-5.0) mmol/L Chloride 93 L (101-111) mmol/L Carbon Dioxide 33 H (21-32) mmol/L Anion Gap 5.0 L (6-13) BUN 25 H (6-20) mg/dL Creatinine 0.7 (0.4-1.0) mg/dL Estimated GFR (MDRD) 86 L (>89) Glucose 135 H (70-100) mg/dL POC Whole Bld Glucose (70 - 100) mg/dL Lactic Acid (0.5-2.2) mmol/L Calcium 7.6 L (8.5-10.3) mg/dL Magnesium 1.3 L (1.7-2.8) mg/dL Total Bilirubin 0.7 (0.2-1.0) mg/dL AST 16 (10-42) IU/L ALT 18 (10-60) IU/L Alkaline Phosphatase 61 (42-121) IU/L Troponin I (<0.49) ng/mL B-Natriuretic Peptide (5-100) pg/mL Total Protein 5.5 L (6.7-8.2) g/dL Albumin 1.9 L (3.2-5.5) g/dL Globulin 3.6 (2.1-4.2) g/dL Albumin/Globulin Ratio 0.5 L (1.0-2.2) 01/08/17 01/08/17 01/08/17 Range/Units 21:44 20:44 18:28 WBC (4.8-10.8) x10^3/uL RBC (4.20-5.40) 10^6/uL Hgb (12.0-16.0) g/dL Hct (37.0-47.0) % MCV (81.0-99.0) fL MCH (27.0-31.0) pg MCHC (32.0-36.0) g/dL RDW (12.0-15.0) % Plt Count (130-450) 10^3/uL MPV (7.9-10.8) fL Neut # (1.5-6.6) 10^3/uL Lymph # (1.5-3.5) 10^3/uL [place] # (0.0-1.0) 10^3/uL Eos # (0.0-0.7) 10^3/uL Baso # (0.0-0.1) 10^3/uL Absolute Nucleated RBC x10^3/uL Nucleated RBCs /100WBC PT (9.9-12.6) secs INR (0.8-1.2) Sodium (135-145) mmol/L Potassium (3.5-5.0) mmol/L Chloride (101-111) mmol/L Carbon Dioxide (21-32) mmol/L Anion Gap (6-13) BUN (6-20) mg/dL Creatinine (0.4-1.0) mg/dL Estimated GFR (MDRD) (>89) Glucose (70-100) mg/dL POC Whole Bld Glucose 201 H (70 - 100) mg/dL Lactic Acid (0.5-2.2) mmol/L Calcium (8.5-10.3) mg/dL Magnesium (1.7-2.8) mg/dL Total Bilirubin (0.2-1.0) mg/dL AST (10-42) IU/L ALT (10-60) IU/L Alkaline Phosphatase (42-121) IU/L Troponin I < 0.04 < 0.04 (<0.49) ng/mL B-Natriuretic Peptide (5-100) pg/mL Total Protein (6.7-8.2) g/dL Albumin (3.2-5.5) g/dL Globulin (2.1-4.2) g/dL Albumin/Globulin Ratio (1.0-2.2) 01/08/17 01/08/17 Range/Units 16:42 11:10 WBC (4.8-10.8) x10^3/uL RBC (4.20-5.40) 10^6/uL Hgb (12.0-16.0) g/dL Hct (37.0-47.0) % MCV (81.0-99.0) fL MCH (27.0-31.0) pg MCHC (32.0-36.0) g/dL RDW (12.0-15.0) % Plt Count (130-450) 10^3/uL MPV (7.9-10.8) fL Neut # (1.5-6.6) 10^3/uL Lymph # (1.5-3.5) 10^3/uL [place] # (0.0-1.0) 10^3/uL Eos # (0.0-0.7) 10^3/uL Baso # (0.0-0.1) 10^3/uL Absolute Nucleated RBC x10^3/uL Nucleated RBCs /100WBC PT (9.9-12.6) secs INR (0.8-1.2) Sodium (135-145) mmol/L Potassium (3.5-5.0) mmol/L Chloride (101-111) mmol/L Carbon Dioxide (21-32) mmol/L Anion Gap (6-13) BUN (6-20) mg/dL Creatinine (0.4-1.0) mg/dL Estimated GFR (MDRD) (>89) Glucose (70-100) mg/dL POC Whole Bld Glucose 215 H 182 H (70 - 100) mg/dL Lactic Acid (0.5-2.2) mmol/L Calcium (8.5-10.3) mg/dL Magnesium (1.7-2.8) mg/dL Total Bilirubin (0.2-1.0) mg/dL AST (10-42) IU/L ALT (10-60) IU/L Alkaline Phosphatase (42-121) IU/L Troponin I (<0.49) ng/mL B-Natriuretic Peptide (5-100) pg/mL Total Protein (6.7-8.2) g/dL Albumin (3.2-5.5) g/dL Globulin (2.1-4.2) g/dL Albumin/Globulin Ratio (1.0-2.2) Assessment/Plan - Problem List (1) CHF (congestive heart failure) Impression: it is chronic condition, about two weeks ago, pt's ECHO shows EF 20-25%. I consulted with cannoneer Dr Terrance Bowles, and called and left message to the doctor Qualifiers: Congestive heart failure type: combined Congestive heart failure chronicity : acute on chronic Qualified Code(s): I50.43 - Acute on chronic combined systolic (congestive) and diastolic (congestive) heart failure (2) CHF exacerbation Impression: pt's BNP from 4300 down to today 2400. pt report she feel much better today. No shortness of breathing, or no other cardiopulmonary distress, and pt is comfortably at the bed continue lasix, restrict of I/O recheck electrolytic replace of electrolytic as needed (3) COPD exacerbation Impression: stable, no SOB. SO2 91/94/96 % room air continue INH treatment (4) Pleural effusion Impression: if medical procedure can manage and slow down pt's pleural effusion, and pt has hemodynamic stable, then we continue to manage and plan to do thoracentesis as out patient as needed. pt with high risk to do procedure. Pt's two weeks ago ECHO showed 20-25% EF, and two large clots in both ventricles, pt is on Coumadin , and PT/INR today 30/2.7 check ECHO, CT of chest (reason why pt is unilateral not bilateral left pleural effusion), to determine the progress after treatment. Now pt is hemodynamic stable, closely monitor vital, on tele (5) Pneumonia Impression: pt's WBC is still slight above NML, pt has large effusion at left lung, pt came back from nurse home change PO azithyromycin to IV Cefepime, Qualifiers: Pneumonia type: due to unspecified organism Laterality: left Lung location: lower lobe of lung Qualified Code(s): J18.1 - Lobar pneumonia, unspecified organism (6) History of thrombosis Impression: today PT/INR 30/2.7, will daily PT/INR. see test result to determine if pt need throacentesis, then determine if continue to hold Coumadin or resume (7) DM2 (diabetes mellitus, type 2) Impression: stable, continue to treat, slide scale, ACHS Qualifiers: Diabetes mellitus complication detail: with other neurological complication (8) Hypocalcemia Impression: replace of calciu gluconate (9) Chest pain Impression: pt complain chest pain on the afternoon of yesterday. twice Troponin negative. Re-assess pt, pt was sleeping, it appears she is not more cardiac distress. order ECHO, follow up and will compare with her previous one (10) Hypomagnesemia Impression: replace with mag, recheck daily
[2017-01-09] MEDS ORDERED: CEFEPIME 1 GM in SODIUM CHLORIDE 0.9% MINIBAG 100 ML IV SCH (10:00)
[2017-01-09] MEDS: SODIUM CHLORIDE FLUSH 0.9% 10 ML SYRINGE IVP PRN ×3 (11:34→14:23)
--- NOTE | 2017-01-09 13:30 | CT Report ---
CT CHEST WITHOUT CONTRAST: 01/09/2017 CLINICAL INDICATION: Shortness of breath. COMPARISON: Chest x-ray 01/07/2017, chest CT 11/07/2015. TECHNIQUE: Axial CT images of the chest were obtained without intravenous contrast. In accordance with CT protocol optimization, one or more of the following dose reduction techniques w ere utilized for this exam: automated exposure control, adjustment of mA and/or KV based on patient size, or use of iterative reconstructive technique. FINDINGS: The heart and great vessels appear unremarkable. There are large left and small right ple ural effusions, with extensive left-sided infiltrates and small patchy right infiltrates. No pneumot horax is seen. 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 Osseous structures demonstrate degenerative changes. Limited evaluation of upper ab dominal structures is unremarkable. IMPRESSION: LARGE LEFT AND SMALL RIGHT PLEURAL EFFUSIONS, WITH EXTENSIVE LEFT-SIDED INFILTRATES AND SMALL PATCHY RIGHT-SIDED INFILTRATES. JOB #: [id number] EXT JOB #:[id number]
[2017-01-09] MEDS: CEFEPIME 1 GM in SODIUM CHLORIDE 0.9% MINIBAG 100 ML IV SCH ×2 (14:22→22:14)
[2017-01-09] MEDS: ATORVASTATIN 40 MG TABLET PO SCH (20:29)
[2017-01-09] MEDS ORDERED: SODIUM CHLORIDE 0.9% 250 ML IV ONE (22:13)
[2017-01-10 05:04] LABS: BASOPHILS # (AUTO) 0.1 10^3/uL (0.0-0.1); BASOPHILS % (AUTO) 0.8 %; EOSINOPHILS # (AUTO) 0.1 10^3/uL (0.0-0.7); EOSINOPHILS % (AUTO) 0.8 %; HCT - HEMATOCRIT 37.8 % (37.0-47.0); HGB - HEMOGLOBIN 12.2 g/dL (12.0-16.0); LYMPHOCYTES # (AUTO) 1.7 10^3/uL (1.5-3.5); LYMPHOCYTES % (AUTO) 16.1 %; MEAN CORPUSCULAR HEMOGLOBIN 28.2 pg (27.0-31.0); MEAN CORPUSCULAR HGB CONC 32.3 g/dL (32.0-36.0); MEAN CORPUSCULAR VOLUME 87.2 fL (81.0-99.0); MEAN PLATELET VOLUME 7.3 fL (7.9-10.8); MONOCYTES # (AUTO) 0.9 10^3/uL (0.0-1.0); MONOCYTES % (AUTO) 8.5 %; NEUTROPHILS # (AUTO) 7.8 10^3/uL (1.5-6.6); NEUTROPHILS % (AUTO) 73.8 %; NUCLEATED RED BLOOD CELLS AUTO 0.1 /100WBC; RED BLOOD COUNT 4.34 10^6/uL (4.20-5.40); RED CELL DISTRIBUTION WIDTH 18.5 % (12.0-15.0); UNCORRECTED WHITE BLOOD COUNT 10.5 x10^3/uL; WHITE BLOOD COUNT 10.5 x10^3/uL (4.8-10.8)
[2017-01-10 05:09] LABS: INR 2.8 (0.8-1.2); PT - PROTHROMBIN TIME 32.1 secs (9.9-12.6)
[2017-01-10 05:15] LABS: ALBUMIN/GLOBULIN RATIO 0.5 (1.0-2.2); BILIRUBIN,TOTAL 0.4 mg/dL (0.2-1.0); CALCIUM 7.6 mg/dL (8.5-10.3); CREATININE 0.8 mg/dL (0.4-1.0); MAGNESIUM 1.3 mg/dL (1.7-2.8); POTASSIUM 4.4 mmol/L (3.5-5.0); TOTAL PROTEIN 5.4 g/dL (6.7-8.2)
[2017-01-10] MEDS: CEFEPIME 1 GM in SODIUM CHLORIDE 0.9% MINIBAG 100 ML IV SCH ×3 (06:20→21:29)
[2017-01-10] MEDS: FUROSEMIDE 40 MG/4 ML VIAL IVP SCH ×2 (06:21→14:47)
[2017-01-10] MEDS: SODIUM CHLORIDE FLUSH 0.9% 10 ML SYRINGE IVP SCH ×3 (06:21→21:26)
--- NOTE | 2017-01-10 07:50 | PROVIDER PROGRESS NOTE ---
Assessment/Plan - Problem List (1) Systolic CHF, acute on chronic Assessment/Plan: ongoing with improvement. EF is 30-35%. continue with lasix BID. continue with blood pressure medications for CHF. monitor daily weights. avoid excessive fluids overload. limit sodium daily. monitor for crackles in lungs. encourage ambulation with PT support. echo completed. monitor daily lab draws. (2) Primary hypomagnesemia Assessment/Plan: ongoing. replace magnesium with IV 4gm with 2 riders. repeat levels with daily lab draw. (3) COPD exacerbation Assessment/Plan: chronic. continue on COPD medications and RT support with supplemental oxygen 2 liters NC as needed. encourage ambulation and deep breathing daily (4) Pulmonary embolism on long-term anticoagulation therapy Assessment/Plan: ongoing. patient is on Coumadin for PE recently. she is therapeutic at 2.8. Coumadin being held for possible tap since she has large pleural effusions. she will need to improve the pneumonia before tapping the effusion. continue with lasix (5) Diabetes mellitus type 2 with complications, uncontrolled Qualifiers: Diabetes mellitus shelter insulin use: with rn long term care use Qualified Code( s): E11.8 - Type 2 diabetes mellitus with unspecified complications; E11.65 - Type 2 diabetes mellitus with hyperglycemia; Z79.4 - care home (current) use of insulin Assessment/Plan: continue with accuchecks and diabetic diet. continue with sliding scale insulin. (6) Left lower lobe pneumonia Qualifiers: Pneumonia type: due to unspecified organism Qualified Code(s): J18.1 - Lobar pneumonia, unspecified organism Assessment/Plan: acute with right pleural effusions. continue with antibiotic treatments and lasix therapy. continue with RT support and supplemental oxygen and breathing treatments as needed. encourage ambulation with PT. pending SNF [facility]? - Current Meds Current Meds: Current Medications Generic Name Dose Route Start Last Admin Trade Name Freq PRN Reason Stop Dose Admin Albuterol/Ipratropium 3 ml 01/07/17 15:43 01/08/17 07:45 Duoneb INH 3 ml Q4HR PRN Administration Wheezing Aspirin 81 mg 01/08/17 09:00 01/09/17 08:38 [facility] Aspirin PO 81 mg DAILY MILA Administration Atorvastatin Calcium 80 mg 01/08/17 21:00 01/09/17 20:29 Lipitor PO 80 mg QPM MILA Administration Calcium Carbonate/Glycine 500 mg 01/08/17 18:23 01/08/17 19:25 Tums PO 500 mg PRN PRN Administration Heartburn Carvedilol 12.5 mg 01/08/17 09:00 01/09/17 20:30 Coreg PO 12.5 mg BID MILA Administration Duloxetine HCl 60 mg 01/08/17 09:00 01/09/17 08:37 Cymbalta PO 60 mg DAILY MILA Administration Famotidine 20 mg 01/09/17 09:00 01/09/17 08:39 Pepcid PO 20 mg DAILY MILA Administration Furosemide 40 mg 01/08/17 19:00 01/10/17 06:21 Lasix Inj 40 Mg Vial IVP 40 mg BIDDIURETIC MILA Administration Cefepime HCl 1 gm/ Sodium 100 mls @ 200 mls/hr 01/09/17 14:00 01/10/17 06:20 Chloride IV 200 mls/hr TID MILA Administration Insulin Aspart 1 - 5 unit 01/07/17 17:00 01/09/17 22:05 Novolog SUBQ 4 unit 0800,1200,1700,2100 MILA Administration Protocol Lisinopril 2.5 mg 01/08/17 09:00 01/09/17 08:38 Zestril PO 2.5 mg DAILY MILA Administration Magnesium Oxide 400 mg 01/09/17 09:00 01/09/17 20:31 Mag Ox PO 400 mg BID MILA Administration Nitroglycerin 0.4 mg 01/08/17 18:21 01/08/17 18:37 Nitrostat SL 0.4 mg Q5MIN PRN Administration Chest Pain Ondansetron HCl 4 mg 01/07/17 15:15 01/09/17 13:04 Zofran Inj IVP 4 mg Q6HR PRN Administration Nausea / Vomiting Polyethylene Glycol 17 gm 01/08/17 09:00 01/09/17 08:51 Miralax PO Not Given DAILY COUNTS INCLUDE 234 BEDS AT THE [facility] Sodium Chloride 10 ml 01/07/17 15:15 01/09/17 14:23 Normal Saline Flush 0.9% IVP 10 ml PRN PRN Administration NEEDED PER PROVIDER ORDERS Sodium Chloride 10 ml 01/07/17 22:00 01/10/17 06:21 Normal Saline Flush 0.9% IVP 20 ml Q8HR MILA Administration Spironolactone 25 mg 01/08/17 09:00 01/09/17 20:31 Aldactone PO 25 mg BID MILA Administration - Lab Result Lab results reviewed: Yes Fish Bone Diagrams: 01/10/17 04:45 01/10/17 04:45 Other Lab Results: Abnormal Lab Results 01/08/17 01/08/17 01/08/17 11:10 16:42 20:44 WBC Hgb MCHC RDW MPV Neut # PT INR Sodium Chloride Carbon Dioxide Anion Gap BUN Estimated GFR (MDRD) Glucose POC Whole Bld Glucose 182 mg/dL H mg/dL 215 mg/dL H mg/dL 201 mg/dL H mg/dL (70 - 100) (70 - 100) (70 - 100) Calcium Magnesium B-Natriuretic Peptide Total Protein Albumin Albumin/Globulin Ratio 01/09/17 01/09/17 01/09/17 05:49 05:49 05:49 WBC 12.2 x10^3/uL H x10^3/uL (4.8-10.8) Hgb 11.8 g/dL L g/dL (12.0-16.0) MCHC 31.3 g/dL L g/dL (32.0-36.0) RDW 18.4 % H % (12.0-15.0) MPV 7.3 fL L fL (7.9-10.8) Neut # 9.2 10^3/uL H 10^3/uL (1.5-6.6) PT 30.3 secs H secs (9.9-12.6) INR 2.7 H (0.8-1.2) Sodium 131 mmol/L L mmol/L (135-145) Chloride 93 mmol/L L mmol/L (101-111) Carbon Dioxide 33 mmol/L H mmol/L (21-32) Anion Gap 5.0 L (6-13) BUN 25 mg/dL H mg/dL (6-20) Estimated GFR (MDRD) 86 L (>89) Glucose 135 mg/dL H mg/dL (70-100) POC Whole Bld Glucose Calcium 7.6 mg/dL L mg/dL (8.5-10.3) Magnesium 1.3 mg/dL L mg/dL (1.7-2.8) B-Natriuretic Peptide Total Protein 5.5 g/dL L g/dL (6.7-8.2) Albumin 1.9 g/dL L g/dL (3.2-5.5) Albumin/Globulin Ratio 0.5 L (1.0-2.2) 01/09/17 01/09/17 01/09/17 05:49 07:49 12:52 WBC Hgb MCHC RDW MPV Neut # PT INR Sodium Chloride Carbon Dioxide Anion Gap BUN Estimated GFR (MDRD) Glucose POC Whole Bld Glucose 131 mg/dL H mg/dL 175 mg/dL H mg/dL (70 - 100) (70 - 100) Calcium Magnesium B-Natriuretic Peptide 2457 pg/mL H pg/mL (5-100) Total Protein Albumin Albumin/Globulin Ratio 01/09/17 01/09/17 01/10/17 16:35 20:41 04:45 WBC Hgb MCHC RDW 18.5 % H % (12.0-15.0) MPV 7.3 fL L fL (7.9-10.8) Neut # 7.8 10^3/uL H 10^3/uL (1.5-6.6) PT INR Sodium Chloride Carbon Dioxide Anion Gap BUN Estimated GFR (MDRD) Glucose POC Whole Bld Glucose 318 mg/dL H mg/dL 305 mg/dL H mg/dL (70 - 100) (70 - 100) Calcium Magnesium B-Natriuretic Peptide Total Protein Albumin Albumin/Globulin Ratio 01/10/17 01/10/17 01/10/17 04:45 04:45 04:45 WBC Hgb MCHC RDW MPV Neut # PT 32.1 secs H secs (9.9-12.6) INR 2.8 H (0.8-1.2) Sodium 132 mmol/L L mmol/L (135-145) Chloride 91 mmol/L L mmol/L (101-111) Carbon Dioxide 36 mmol/L H mmol/L (21-32) Anion Gap 5.0 L (6-13) BUN 25 mg/dL H mg/dL (6-20) Estimated GFR (MDRD) 73 L (>89) Glucose 123 mg/dL H mg/dL (70-100) POC Whole Bld Glucose Calcium 7.6 mg/dL L mg/dL (8.5-10.3) Magnesium 1.3 mg/dL L mg/dL (1.7-2.8) B-Natriuretic Peptide 1047 pg/mL H pg/mL (5-100) Total Protein 5.4 g/dL L g/dL (6.7-8.2) Albumin 1.8 g/dL L g/dL (3.2-5.5) Albumin/Globulin Ratio 0.5 L (1.0-2.2) - EKG Results EKG Interpreted Independently: No - Diagnostic Imaging Results Diagnostic Imaging Results: See rad report - Additional Planning Condition/Complexity: Stable My Orders: My Active Orders 01/10/17 PHOSPHORUS [CHEM] Routine 01/10/17 08:00 Magnesium Sulfate 2 Gram [Magnesium Sulfate] 50 ml IV Q20M Consult/Specialty: OT, PT Plan Discussed with:: Patient Time Spent: 31-60 minutes (patient will need to go to SNF, [facility]. she will need another 24 hours inpatient treatment to correct magnesium and improve pneumonia and effusions.) Additional Planning Notes: Patient will need another 24 hours before transfer to SNF maybe [facility]. She is difficult to ambulate per PT Subjective - Subjective Patient Reports: Fatigue, Other (not sleeping at night due to having to use the bathroom on lasix) Nursing Reports: No Complaints, Other (states patient is sleeping during the day mostly not wanting to ambulate) Objective Vital Signs: Vital Signs - 24 hr 01/09/17 01/09/17 01/09/17 08:05 16:00 20:15 Temperature 36.9 C 36.9 C 36.9 C Heart Rate [ 77 75 78 Brachial] Respiratory 18 16 16 Rate Blood Pressure 128/82 H 100/59 L 110/65 [Right Brachial artery] O2 Saturation 91 L 92 93 01/10/17 01/10/17 00:00 05:00 Temperature 36.8 C 36.9 C Heart Rate [ 74 74 Brachial] Respiratory 18 16 Rate Blood Pressure 106/63 140/84 H [Right Brachial artery] O2 Saturation 97 92 Oxygen O2 Source Room air I&O (Last 24 Hrs): Intake and Output Totals x24h 01/08/17 01/09/17 01/10/17 23:59 23:59 23:59 Intake Total 640 200 Output Total 1300 100 100 Balance -660 100 -100 General: Alert, Cooperative, No acute distress HEENT: PERRLA Neck: Supple, No JVD, No thyromegaly Neuro: Alert, CN 2-12 Grossly Intact, Oriented Times 3 Cardiovascular: Normal S1, Normal S2, No murmurs Respiratory: No respiratory distress, Other (diminished in bases) Abdomen: Normal bowel sounds, Soft, No tenderness, No masses Extremities: No clubbing, No cyanosis, Other (BKA) Skin: No rashes, No breakdown, No significant lesion - Results Results: Laboratory Results WBC 10.5 x10^3/uL (4.8-10.8) 01/10/17 04:45 RBC 4.34 10^6/uL (4.20-5.40) 01/10/17 04:45 Hgb 12.2 g/dL (12.0-16.0) 01/10/17 04:45 Hct 37.8 % (37.0-47.0) 01/10/17 04:45 MCV 87.2 fL (81.0-99.0) 01/10/17 04:45 MCH 28.2 pg (27.0-31.0) 01/10/17 04:45 MCHC 32.3 g/dL (32.0-36.0) 01/10/17 04:45 RDW 18.5 % (12.0-15.0) H 01/10/17 04:45 Plt Count 270 10^3/uL (130-450) 01/10/17 04:45 MPV 7.3 fL (7.9-10.8) L 01/10/17 04:45 Neut # 7.8 10^3/uL (1.5-6.6) H 01/10/17 04:45 Lymph # 1.7 10^3/uL (1.5-3.5) 01/10/17 04:45 Posey # 0.9 10^3/uL (0.0-1.0) 01/10/17 04:45 Eos # 0.1 10^3/uL (0.0-0.7) 01/10/17 04:45 Baso # 0.1 10^3/uL (0.0-0.1) 01/10/17 04:45 Absolute Nucleated RBC 0.01 x10^3/uL 01/10/17 04:45 Nucleated RBCs 0.1 /100WBC 01/10/17 04:45 PT 32.1 secs (9.9-12.6) H 01/10/17 04:45 INR 2.8 (0.8-1.2) H 01/10/17 04:45 Sodium 132 mmol/L (135-145) L 01/10/17 04:45 Potassium 4.4 mmol/L (3.5-5.0) 01/10/17 04:45 Chloride 91 mmol/L (101-111) L 01/10/17 04:45 Carbon Dioxide 36 mmol/L (21-32) H 01/10/17 04:45 Anion Gap 5.0 (6-13) L 01/10/17 04:45 BUN 25 mg/dL (6-20) H 01/10/17 04:45 Creatinine 0.8 mg/dL (0.4-1.0) 01/10/17 04:45 Estimated GFR (MDRD) 73 (>89) L 01/10/17 04:45 Glucose 123 mg/dL (70-100) H 01/10/17 04:45 POC Whole Bld Glucose 305 mg/dL (70 - 100) H 01/09/17 20:41 Glycated Hemoglobin 8.5 % (4.6-6.2) H 01/07/17 09:05 Estim Average Glucose 197 (70-100) H 01/07/17 09:05 Lactic Acid 0.7 mmol/L (0.5-2.2) 01/09/17 05:49 Calcium 7.6 mg/dL (8.5-10.3) L 01/10/17 04:45 Magnesium 1.3 mg/dL (1.7-2.8) L 01/10/17 04:45 Total Bilirubin 0.4 mg/dL (0.2-1.0) 01/10/17 04:45 AST 16 IU/L (10-42) 01/10/17 04:45 ALT 18 IU/L (10-60) 01/10/17 04:45 Alkaline Phosphatase 56 IU/L (42-121) 01/10/17 04:45 Troponin I < 0.04 ng/mL (<0.49) 01/08/17 21:44 B-Natriuretic Peptide 1047 pg/mL (5-100) H 01/10/17 04:45 Total Protein 5.4 g/dL (6.7-8.2) L 01/10/17 04:45 Albumin 1.8 g/dL (3.2-5.5) L 01/10/17 04:45 Globulin 3.6 g/dL (2.1-4.2) 01/10/17 04:45 Albumin/Globulin Ratio 0.5 (1.0-2.2) L 01/10/17 04:45 Lipase 29 U/L (22-51) 01/07/17 12:54 - Procedures Procedures: Procedures CONTINUOUS INVASIVE MECHANICAL VENTILATION <96 CONSEC HRS (01/14/15) INSERTION OF INFUSION DEV INTO SUP VENA CAVA, PERC APPROACH (12/22/16) ULTRASONOGRAPHY OF SUPERIOR VENA CAVA, GUIDANCE (12/22/16)
[2017-01-10] MEDS: DULoxetine 20 MG CAPSULE PO SCH (08:26)
[2017-01-10] MEDS: LISINOPRIL 5 MG TABLET PO SCH (08:26)
[2017-01-10] MEDS: MAGNESIUM SULFATE 2 GRAM 50 ML IV SCH ×2 (08:26→10:41)
[2017-01-10] MEDS: FAMOTIDINE 20 MG TABLET PO SCH (08:27)
[2017-01-10] MEDS: CARVEDILOL 12.5 MG TABLET PO SCH ×2 (08:27→21:25)
[2017-01-10] MEDS: ASPIRIN CHEW 81 MG TABLET PO SCH (08:27)
[2017-01-10] MEDS: MAGNESIUM OXIDE 400 MG TABLET PO SCH ×2 (08:27→21:25)
[2017-01-10] MEDS: SPIRONOLACTONE 25 MG TABLET PO SCH ×2 (08:27→21:25)
[2017-01-10] MEDS: INSULIN ASPART 300 UNIT/3 ML PEN SUBQ SCH ×4 (10:21→21:25)
[2017-01-10] MEDS: POLYETHYLENE GLYCOL 3350 17 GM PACKET PO SCH (10:22)
[2017-01-10] MEDS: SODIUM CHLORIDE FLUSH 0.9% 10 ML SYRINGE IVP PRN (16:27)
[2017-01-11 05:47] LABS: BASOPHILS # (AUTO) 0.1 10^3/uL (0.0-0.1); BASOPHILS % (AUTO) 0.5 %; EOSINOPHILS # (AUTO) 0.1 10^3/uL (0.0-0.7); EOSINOPHILS % (AUTO) 0.7 %; HCT - HEMATOCRIT 37.3 % (37.0-47.0); HGB - HEMOGLOBIN 11.8 g/dL (12.0-16.0); LYMPHOCYTES % (AUTO) 16.3 %; MEAN CORPUSCULAR HEMOGLOBIN 27.7 pg (27.0-31.0); MEAN CORPUSCULAR HGB CONC 31.7 g/dL (32.0-36.0); MEAN CORPUSCULAR VOLUME 87.3 fL (81.0-99.0); MEAN PLATELET VOLUME 7.5 fL (7.9-10.8); NEUTROPHILS # (AUTO) 9.3 10^3/uL (1.5-6.6); NEUTROPHILS % (AUTO) 74.5 %; RED BLOOD COUNT 4.27 10^6/uL (4.20-5.40); RED CELL DISTRIBUTION WIDTH 18.8 % (12.0-15.0); UNCORRECTED WHITE BLOOD COUNT 12.5 x10^3/uL; WHITE BLOOD COUNT 12.5 x10^3/uL (4.8-10.8)
[2017-01-11 05:54] LABS: INR 1.9 (0.8-1.2); PT - PROTHROMBIN TIME 21.8 secs (9.9-12.6)
[2017-01-11] MEDS: CEFEPIME 1 GM in SODIUM CHLORIDE 0.9% MINIBAG 100 ML IV SCH (05:59)
[2017-01-11 06:00] LABS: ALBUMIN/GLOBULIN RATIO 0.5 (1.0-2.2); BILIRUBIN,TOTAL 0.7 mg/dL (0.2-1.0); CALCIUM 7.6 mg/dL (8.5-10.3); CREATININE 0.6 mg/dL (0.4-1.0); MAGNESIUM 1.9 mg/dL (1.7-2.8); POTASSIUM 4.6 mmol/L (3.5-5.0); TOTAL PROTEIN 5.5 g/dL (6.7-8.2)
[2017-01-11] MEDS: SODIUM CHLORIDE FLUSH 0.9% 10 ML SYRINGE IVP SCH (06:00)
[2017-01-11] MEDS: FUROSEMIDE 40 MG/4 ML VIAL IVP SCH (06:00)
[2017-01-11] MEDS: INSULIN ASPART 300 UNIT/3 ML PEN SUBQ SCH ×2 (08:37→11:48)
[2017-01-11] MEDS: FAMOTIDINE 20 MG TABLET PO SCH (08:38)
[2017-01-11] MEDS: CARVEDILOL 12.5 MG TABLET PO SCH (08:38)
[2017-01-11] MEDS: LISINOPRIL 5 MG TABLET PO SCH (08:38)
[2017-01-11] MEDS: DULoxetine 20 MG CAPSULE PO SCH (08:38)
[2017-01-11] MEDS: SPIRONOLACTONE 25 MG TABLET PO SCH (08:38)
[2017-01-11] MEDS: ASPIRIN CHEW 81 MG TABLET PO SCH (08:38)
[2017-01-11] MEDS: MAGNESIUM OXIDE 400 MG TABLET PO SCH (08:38)
[2017-01-11] MEDS: POLYETHYLENE GLYCOL 3350 17 GM PACKET PO SCH (08:39)
[2017-01-11] MEDS: IPRATROPIUM/ALBUTEROL 3 ML NEB INH PRN (08:46)
--- NOTE | 2017-01-11 12:15 | Discharge Plan ---
Discharge Plan Disposition: Home, Self Care Condition: Stable Prescriptions: Ipratropium/Albuterol [Duoneb] 3 ml INH Q4HR PRN #30 neb PRN Reason: Wheezing Albuterol 2.5 mg INH RTQ4H PRN #1 inh PRN Reason: Wheezing Magnesium Oxide [Mag Ox] 400 mg PO BID #60 tablet Calcium Carbonate [Tums (Calcium Carbonate 500mg)] 500 mg PO PRN PRN #30 tablet PRN Reason: Heartburn Diet: Diabetic Activity Restrictions: Activity as Tolerated Shower Restrictions: No Driving Restrictions: Yes (does not drive) Assistance Devices: Wheelchair Weight Bearing: as able in wheelchair Instruction Topics: Heart Failure Warning Signs, Heart Failure Congestive Ch Additional Instructions or Follow Up instructions: 1. continue with your medications as prescribed. please be sure to use your inhaler as prescribed. you will need to see your PCP for any medication changes 2. continue to get daily exercise. You will need to use your wheelchair when up 3. Please eat a diet that is low in sodium with no prepackaged foods or canned products since this can increase the amount of sodium and lead to worsening congestive heart failure. 4. Please make sure to get plenty of sleep at night, 8 hours is preferred. 5. Please see your primary care provider within 1 week of discharge. 6. Return to the ER if symptoms get worse or you have chest pain or shortness of breath , fever or chills Follow-Up Care: Home Health - PT No Smoking: If you smoke, Please STOP! Call for help.
--- NOTE | 2017-01-11 12:26 | DISCHARGE SUMMARY ---
"Discharge Summary Admit Date: 01/07/17 Discharge Date: 01/11/17 Discharging Provider: Nicole Sharp APRN Primary Care Provider: Zach Kaye MD Condition at Discharge: Stable Discharge Disposition: 01 Home, Self Care Discharge Facility Name: home - DIAGNOSES Admission Diagnoses: 1. Acute on chronic congestive heart failure 2. COPD with exacerbation 3. Type 2 diabetes mellitus with complications 4. nicotine dependence, cigarettes, in remission Discharge Diagnoses with Status of Each Condition: 1. Acute on chronic systolic congestive heart failure with EF of 30-35% 2. 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 nicotine dependence, cigarettes, in remission 5. COPD with exacerbation 6. 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 Patient report she did not get Nebs treatment in the [facility]. She has gradually got difficult to breath. Today morning, she report she just can not breath at all. She state she was disoriented in the [facility] today. patient report she felt feverish, and had cough in SNF. When I examine her in emergence room, she is no fever, no chill, no respiratory distress. She is 97% SO2 with 2L O2. Patient denies chest pain, headache, abdominal pain, nausea, vomiting, diarrhea, dysuria, vision issue. lab test reveal significant result, [id number], INR 3.2, calcium 7.7, WBC 11.8. 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 She had a BKA afterwards. She had an echo that showed EF of 30-35% which was an improvement from the recent admission with EF in ECHO was 20-25%. She was started on lasix IV while in the ER and continued inpatient. She continued on Neb treatments with RT support and supplemental oxygen. She worked with PT and oT to assist with ambulation. She used a wheelchair for assist. Initial lab values at admission were [id number], INR 3.2, calcium 7.7, WBC 11.8. At admission, patient had significant pneumonia in bilateral lobes of lung and was on Cefepime. She was discharged home with continuation on Ceftin 500mg PO BID. She continued on home dosage of coumadin for history of DVT and blood clots, PE. She was given RT treatments for the COPD. Her BNP improved at discharge to below 1000. She was anxious to go home and wanted discharge without any home health. She states that her son and friends will be able to care for her. She was given prescriptions for albuterol treatments, lasix, antibiotics, magnesium, and instructed to remain on all medications prescribed including coumadin and to see PCP this week. She understood and was able to be discharged home with her friends. - ALLERGIES Allergies/Adverse Reactions: Allergies Allergy/AdvReac Type Severity Reaction Status Date / Time latex Allergy Unknown Verified 11/01/16 12:58 levofloxacin Allergy Itching Verified 07/15/15 11:57 levopropoxyphene Allergy Unknown Verified 11/01/16 12:58 Penicillins Allergy Hives Verified 07/15/15 11:57 - MEDICATIONS Home Medications: Ambulatory Orders Medication Instructions Recorded Confirmed Warfarin Sodium [Coumadin] 5 mg PO DAILY 01/15/15 01/09/17 Spironolactone 25 mg ORAL DAILY 11/01/16 01/09/17 Multivit with Calcium,Iron,Min 1 each PO DAILY 12/22/16 01/09/17 [Multiple Vitamins For Women] Aspirin Chewable [St Chris 81 mg PO DAILY tablet 12/31/16 01/09/17 Aspirin] Atorvastatin [Lipitor] 80 mg PO QPM tablet 12/31/16 01/09/17 Carvedilol [Coreg] 12.5 mg PO BID tablet 12/31/16 01/09/17 DULoxetine [Cymbalta] 60 mg PO DAILY capsule 12/31/16 01/09/17 Lisinopril [Zestril] 2.5 mg PO DAILY tablet 12/31/16 01/09/17 Magnesium Oxide [Mag Ox] 400 mg PO DAILYWM tablet 12/31/16 01/09/17 traMADol [Ultram] 25 mg PO Q12H PRN #10 tablet 12/31/16 01/09/17 Acetaminophen/Cod 300/30 [Tylenol 1 tab PO Q4H PRN 01/09/17 01/09/17 #3] Albuterol Sulfate [Proair Hfa 1 puffs INH Q12H PRN 01/09/17 01/09/17 Inhaler] Gabapentin [Neurontin] 100 mg PO DAILY 01/09/17 01/09/17 Insulin Aspart [Novolog Flexpen] 0 units SQ ACHS PRN 01/09/17 01/09/17 Albuterol 2.5 mg INH RTQ4H PRN #1 inh 01/11/17 Calcium Carbonate [Tums (Calcium 500 mg PO PRN PRN #30 tablet 01/11/17 Carbonate 500mg)] Ipratropium/Albuterol [Duoneb] 3 ml INH Q4HR PRN #30 neb 01/11/17 Magnesium Oxide [Mag Ox] 400 mg PO BID #60 tablet 01/11/17 Home Medications Other | Comments: patient was also sent home with inhaler, to continue on Lasix, coumadin and ceftin 500mg PO bid. She was to continue on anticoagulant therapy and antibiotics for the PNA. - PHYSICAL EXAM AT DISCHARGE General Appearance: positive: No acute distress, Alert Eyes Bilateral: positive: Normal inspection, PERRL, EOMI, No lid inflammation ENT: positive: ENT inspection nml, Pharynx nml, No signs of dehydration Neck: positive: Nml inspection, Thyroid nml, No JVD Respiratory: positive: Chest non-tender, No respiratory distress, Other ( diminished in bases) Cardiovascular: positive: Regular rate & rhythm, No murmur, No gallop Peripheral Pulses: positive: 2+ Abdomen: positive: Non-tender, No organomegaly, Nml bowel sounds, No distention. negative: Guarding, Rebound Back: negative: CVA tenderness (R), CVA tenderness (L) Skin: positive: Color nml, No rash, Warm, Dry Extremities: positive: Full ROM, No pedal edema, Other (wheelchair bound) Neurologic/Psychiatric: positive: Oriented x3, CN's nml (2-12), Motor nml, Sensation nml, Mood/affect nml - LABS Result Diagrams: 01/11/17 05:23 01/11/17 05:23 Other Lab Results: Abnormal Lab Results 01/09/17 01/09/17 01/09/17 05:49 16:35 20:41 WBC 12.2 x10^3/uL H x10^3/uL (4.8-10.8) Hgb 11.8 g/dL L g/dL (12.0-16.0) MCHC 31.3 g/dL L g/dL (32.0-36.0) RDW 18.4 % H % (12.0-15.0) MPV 7.3 fL L fL (7.9-10.8) Neut # 9.2 10^3/uL H 10^3/uL (1.5-6.6) PT INR Sodium Chloride Carbon Dioxide Anion Gap BUN Estimated GFR (MDRD) Glucose POC Whole Bld Glucose 318 mg/dL H mg/dL 305 mg/dL H mg/dL (70 - 100) (70 - 100) Calcium Magnesium B-Natriuretic Peptide Total Protein Albumin Albumin/Globulin Ratio 01/10/17 01/10/17 01/10/17 04:45 04:45 04:45 WBC Hgb MCHC RDW 18.5 % H % (12.0-15.0) MPV 7.3 fL L fL (7.9-10.8) Neut # 7.8 10^3/uL H 10^3/uL (1.5-6.6) PT 32.1 secs H secs (9.9-12.6) INR 2.8 H (0.8-1.2) Sodium 132 mmol/L L mmol/L (135-145) Chloride 91 mmol/L L mmol/L (101-111) Carbon Dioxide 36 mmol/L H mmol/L (21-32) Anion Gap 5.0 L (6-13) BUN 25 mg/dL H mg/dL (6-20) Estimated GFR (MDRD) 73 L (>89) Glucose 123 mg/dL H mg/dL (70-100) POC Whole Bld Glucose Calcium 7.6 mg/dL L mg/dL (8.5-10.3) Magnesium 1.3 mg/dL L mg/dL (1.7-2.8) B-Natriuretic Peptide Total Protein 5.4 g/dL L g/dL (6.7-8.2) Albumin 1.8 g/dL L g/dL (3.2-5.5) Albumin/Globulin Ratio 0.5 L (1.0-2.2) 01/10/17 01/10/17 01/10/17 04:45 07:44 11:30 WBC Hgb MCHC RDW MPV Neut # PT INR Sodium Chloride Carbon Dioxide Anion Gap BUN Estimated GFR (MDRD) Glucose POC Whole Bld Glucose 110 mg/dL H mg/dL 151 mg/dL H mg/dL (70 - 100) (70 - 100) Calcium Magnesium B-Natriuretic Peptide 1047 pg/mL H pg/mL (5-100) Total Protein Albumin Albumin/Globulin Ratio 01/10/17 01/10/17 01/11/17 16:48 20:37 05:23 WBC 12.5 x10^3/uL H x10^3/uL (4.8-10.8) Hgb 11.8 g/dL L g/dL (12.0-16.0) MCHC 31.7 g/dL L g/dL (32.0-36.0) RDW 18.8 % H % (12.0-15.0) MPV 7.5 fL L fL (7.9-10.8) Neut # 9.3 10^3/uL H 10^3/uL (1.5-6.6) PT INR Sodium Chloride Carbon Dioxide Anion Gap BUN Estimated GFR (MDRD) Glucose POC Whole Bld Glucose 176 mg/dL H mg/dL 221 mg/dL H mg/dL (70 - 100) (70 - 100) Calcium Magnesium B-Natriuretic Peptide Total Protein Albumin Albumin/Globulin Ratio 01/11/17 01/11/17 01/11/17 05:23 05:23 05:23 WBC Hgb MCHC RDW MPV Neut # PT 21.8 secs H secs (9.9-12.6) INR 1.9 H (0.8-1.2) Sodium 129 mmol/L L mmol/L (135-145) Chloride 91 mmol/L L mmol/L (101-111) Carbon Dioxide 33 mmol/L H mmol/L (21-32) Anion Gap 5.0 L (6-13) BUN 33 mg/dL H mg/dL (6-20) Estimated GFR (MDRD) Glucose 139 mg/dL H mg/dL (70-100) POC Whole Bld Glucose Calcium 7.6 mg/dL L mg/dL (8.5-10.3) Magnesium B-Natriuretic Peptide 859 pg/mL H pg/mL (5-100) Total Protein 5.5 g/dL L g/dL (6.7-8.2) Albumin 1.9 g/dL L g/dL (3.2-5.5) Albumin/Globulin Ratio 0.5 L (1.0-2.2) 01/11/17 01/11/17 07:27 11:32 WBC Hgb MCHC RDW MPV Neut # PT INR Sodium Chloride Carbon Dioxide Anion Gap BUN Estimated GFR (MDRD) Glucose POC Whole Bld Glucose 136 mg/dL H mg/dL 189 mg/dL H mg/dL (70 - 100) (70 - 100) Calcium Magnesium B-Natriuretic Peptide Total Protein Albumin Albumin/Globulin Ratio - DIAGNOSTIC IMAGING Diagnostic Imaging Results: See rad report - FOLLOW UP Follow Up: Patient was instructed to followup with Crispin Kaye and will need to complete course of antibiotics for the PNA. She understood and agreed with nursing and hospital medicine team. - TIME SPENT Time Spent in Discharge (Minutes): 45 (for planning education and assessment)"
[2017-01-11 13:37] VITALS: BP 106/61
[2017-01-11] MEDS ORDERED: traMADol 50 MG TABLET PO PRN (14:07)
[2017-01-11] MEDS ORDERED: CEFUROXIME AXETIL 250 MG TABLET PO SCH (21:00)
== END 2017-01-11 13:55 | disposition home or self-care (01) | DRG 291 ==
LOC: ED 12:10 → MS2 15:15
PROVIDERS: ADMIT Nurse Practitioner Gerontology; ATTEND Nurse Practitioner
DX: I11.0 Hypertensive heart disease with heart failure (principal); J90 Pleural effusion, not elsewhere classified; I10 Essential (primary) hypertension; J18.1 Lobar pneumonia, unspecified organism; E11.9 Type 2 diabetes mellitus without complications; F32.9 Major depressive disorder, single episode, unspecified; F41.9 Anxiety disorder, unspecified; M10.9 Gout, unspecified; J44.1 Chronic obstructive pulmonary disease with (acute) exacerbation; I50.23 Acute on chronic systolic (congestive) heart failure; E11.42 Type 2 diabetes mellitus with diabetic polyneuropathy; F17.211 Nicotine dependence, cigarettes, in remission; Z79.82 Long term (current) use of aspirin; Z87.891 Personal history of nicotine dependence; Z89.512 Acquired absence of left leg below knee; Z79.4 Long term (current) use of insulin; I25.2 Old myocardial infarction; Z86.73 Personal history of transient ischemic attack (TIA), and cerebral infarction without residual deficits; Z86.718 Personal history of other venous thrombosis and embolism; Z79.01 Long term (current) use of anticoagulants; I25.10 Atherosclerotic heart disease of native coronary artery without angina pectoris; E83.51 Hypocalcemia; E83.42 Hypomagnesemia
CPT/HCPCS: 36415; 71010; 71250; 74000; 80053; 83036; 83605; 83690; 83735; 83880; 84100; 84484; 85025; 85610; 93005; 93306; 94640; 96374; 99284

== ENCOUNTER 2017-02-10 13:58 | Emergency (ER) | payer MEDICARE, MEDICAID ==
[2017-02-10] MEDS ORDERED: HYDROmorphone 1 MG/ML CARPUJECT IVP STA (15:52)
[2017-02-10] MEDS ORDERED: SODIUM CHLORIDE 0.9% 1,000 ML IV ONE (15:52)
--- NOTE | 2017-02-10 15:54 | ED Physician Documentation ---
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 The right was done about 3 years ago at [facility]. Over the last 4 days she has severe pain of the stump with blackening and discoloration of the stump without fevers.) Review of Systems Ten Systems: 10 systems reviewed and negative Constitutional: denies: Fever, Chills Cardiac: denies: Chest pain / pressure, Palpitations Respiratory: denies: Dyspnea, Cough GI: reports: Reviewed and negative : reports: Reviewed and negative PD PAST MEDICAL HISTORY - Past Medical History Past Medical History: Yes Cardiovascular: Hypertension, Coronary artery disease, Deep vein thrombosis, [place] Respiratory: Asthma, COPD, Emphysema Neuro: CVA, Head injury, Fainting Endocrine/Autoimmune: Type 2 diabetes GI: Hiatal hernia, Hemorrhoids, Diverticulitis : None Psych: Depression, Anxiety Musculoskeletal: Gout Derm: None - Past Surgical History Past Surgical History: Yes General: Appendectomy, Bowel surgery 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 POLITICAL HISTORY: Hysterectomy - Present Medications Home Medications: Ambulatory Orders Medication Instructions Recorded Confirmed Warfarin Sodium [Coumadin] 5 mg PO DAILY 01/15/15 01/09/17 Spironolactone 25 mg ORAL DAILY 11/01/16 01/09/17 Multivit with Calcium,Iron,Min 1 each PO DAILY 12/22/16 01/09/17 [Multiple Vitamins For Women] Aspirin Chewable [[place] Chris 81 mg PO DAILY tablet 12/31/16 01/09/17 Aspirin] Atorvastatin [Lipitor] 80 mg PO QPM tablet 12/31/16 01/09/17 Carvedilol [Coreg] 12.5 mg PO BID tablet 12/31/16 01/09/17 DULoxetine [Cymbalta] 60 mg PO DAILY capsule 12/31/16 01/09/17 Lisinopril [Zestril] 2.5 mg PO DAILY tablet 12/31/16 01/09/17 Magnesium Oxide [Mag Ox] 400 mg PO DAILYWM tablet 12/31/16 01/09/17 traMADol [Ultram] 25 mg PO Q12H PRN #10 tablet 12/31/16 01/09/17 Acetaminophen/Cod 300/30 [Tylenol 1 tab PO Q4H PRN 01/09/17 01/09/17 #3] Albuterol Sulfate [Proair Hfa 1 puffs INH Q12H PRN 01/09/17 01/09/17 Inhaler] Gabapentin [Neurontin] 100 mg PO DAILY 01/09/17 01/09/17 Insulin Aspart [Novolog Flexpen] 0 units SQ ACHS PRN 01/09/17 01/09/17 Albuterol 2.5 mg INH RTQ4H PRN #1 inh 01/11/17 Calcium Carbonate [Tums (Calcium 500 mg PO PRN PRN #30 tablet 01/11/17 Carbonate 500mg)] Ipratropium/Albuterol [Duoneb] 3 ml INH Q4HR PRN #30 neb 01/11/17 Magnesium Oxide [Mag Ox] 400 mg PO BID #60 tablet 01/11/17 - Allergies Allergies/Adverse Reactions: Allergies Allergy/AdvReac Type Severity Reaction Status Date / Time latex Allergy Unknown Verified 11/01/16 12:58 levofloxacin Allergy Itching Verified 07/15/15 11:57 levopropoxyphene Allergy Unknown Verified 11/01/16 12:58 Penicillins Allergy Hives Verified 07/15/15 11:57 - Social History Does the pt smoke?: Yes Smoking Status: Former smoker Does the pt drink ETOH?: No Does the pt have substance abuse?: Yes - Family History Family history: reports: Non contributory - Immunizations Immunizations are current?: No Immunizations: TDAP >10years/unknown - POLST Patient has POLST: No POLST Status: Full Code PD ED PE NORMAL - Vitals Vital signs reviewed: Yes - General General: Alert and oriented X 3, Other (Clearly in pain) - HEENT HEENT: PERRL, EOMI - Neck Neck: Supple, no meningeal sign, No bony TTP - Cardiac Cardiac: RRR, No murmur - Respiratory Respiratory: No respiratory distress, Clear bilaterally - Abdomen Abdomen: Normal bowel sounds, Soft, Non tender - Extremities Extremities: Other (She has a right below-knee amputation, the stump has a tattoo on it and dark discoloration around the stump with definite coolness compared to the opposite side.) - Neuro Neuro: Alert and oriented X 3, Normal speech - Psych Psych: Normal mood, Normal affect Results - Vitals Vitals: Vital Signs - 24 hr 02/10/17 02/10/17 02/10/17 14:19 15:00 16:30 Temperature 36.4 C L Heart Rate 102 H 74 85 Respiratory 24 14 20 Rate Blood Pressure 124/83 H 129/66 122/74 O2 Saturation 94 95 95 02/10/17 02/10/17 17:05 19:20 Temperature Heart Rate 92 94 Respiratory 16 20 Rate Blood Pressure 120/66 126/88 H O2 Saturation 94 95 Oxygen O2 Source Room air - Labs Labs: Laboratory Tests 02/10/17 02/10/17 02/10/17 16:25 16:25 16:25 WBC 16.7 H RBC 4.66 Hgb 12.2 Hct 39.0 MCV 83.7 MCH 26.3 L MCHC 31.4 L RDW 20.8 H Plt Count 291 MPV 8.1 Neut # 14.4 H Lymph # 1.2 L [place] # 1.1 H Eos # 0.0 Baso # 0.1 Absolute Nucleated RBC 0.02 Nucleated RBCs 0.1 Manual Slide Review Indicated WBC Morphology NORMAL APPEARANCE Platelet Estimate NORMAL (130-450,000) Platelet Morphology NORMAL APPEARANCE RBC Morph Micro Appear 1+ TEARDROP CELLS PT 16.7 H INR 1.5 H Sodium Potassium Chloride Carbon Dioxide Anion Gap BUN Creatinine Estimated GFR (MDRD) Glucose Lactic Acid 2.7 H Calcium Total Bilirubin AST ALT Alkaline Phosphatase Total Protein Albumin Globulin Albumin/Globulin Ratio Lipase 02/10/17 17:12 WBC RBC Hgb Hct MCV MCH MCHC RDW Plt Count MPV Neut # Lymph # [place] # Eos # Baso # Absolute Nucleated RBC Nucleated RBCs Manual Slide Review WBC Morphology Platelet Estimate Platelet Morphology RBC Morph Micro Appear PT INR Sodium 128 L Potassium 5.1 H Chloride 90 L Carbon Dioxide 29 Anion Gap 9.0 BUN 42 H Creatinine 0.8 Estimated GFR (MDRD) 73 L Glucose 202 H Lactic Acid Calcium 8.7 Total Bilirubin 1.0 AST 86 H ALT 91 H Alkaline Phosphatase 104 Total Protein 7.2 Albumin 2.3 L Globulin 4.9 H Albumin/Globulin Ratio 0.5 L Lipase 16 L PD MEDICAL DECISION MAKING - ED course ED course: She has what appears to be an ischemic leg which is a recurrent phenomenon for her. I spoke with our on-call orthopedist here, Dr. Richmond who recommended transfer to a tertiary facility for vascular workup, previous work was at [facility], they were called for potential transfer at 3:58 PM. At approximately 4:15 PM I spoke with the transfer center at [facility], and Dr. Duenas they are, they are overwhelmed and cannot take the patient in a timely manner and the vascular surgeon felt it odonnell to start calling around for potentially another facility. Accepted by [facility] to [facility] at 1720, Heparin was started at the time of that conversation given that she was subtherapeutic on her INR. Departure - Departure Disposition: 02 Transfer Acute Care Hosp Clinical Impression: Ischemic leg Condition: Serious Discharge Date/Time: 02/10/17 18:30
[2017-02-10] MEDS ORDERED: HYDROmorphone 1 MG/ML CARPUJECT ONE (16:12)
[2017-02-10 16:46] LABS: BASOPHILS # (AUTO) 0.1 10^3/uL (0.0-0.1); BASOPHILS % (AUTO) 0.3 %; EOSINOPHILS % (AUTO) 0.1 %; HGB - HEMOGLOBIN 12.2 g/dL (12.0-16.0); LYMPHOCYTES # (AUTO) 1.2 10^3/uL (1.5-3.5); LYMPHOCYTES % (AUTO) 7.3 %; MEAN CORPUSCULAR HEMOGLOBIN 26.3 pg (27.0-31.0); MEAN CORPUSCULAR HGB CONC 31.4 g/dL (32.0-36.0); MEAN CORPUSCULAR VOLUME 83.7 fL (81.0-99.0); MEAN PLATELET VOLUME 8.1 fL (7.9-10.8); MONOCYTES # (AUTO) 1.1 10^3/uL (0.0-1.0); MONOCYTES % (AUTO) 6.3 %; NEUTROPHILS # (AUTO) 14.4 10^3/uL (1.5-6.6); NUCLEATED RED BLOOD CELLS AUTO 0.1 /100WBC; RED BLOOD COUNT 4.66 10^6/uL (4.20-5.40); RED CELL DISTRIBUTION WIDTH 20.8 % (12.0-15.0); UNCORRECTED WHITE BLOOD COUNT 16.7 x10^3/uL; WHITE BLOOD COUNT 16.7 x10^3/uL (4.8-10.8)
[2017-02-10 16:49] LABS: INR 1.5 (0.8-1.2); PT - PROTHROMBIN TIME 16.7 secs (9.9-12.6)
[2017-02-10] MEDS ORDERED: HEPARIN 5,000 UNIT/ML VIAL IVP ONE (17:22)
[2017-02-10] MEDS ORDERED: HEPARIN 25000UNITS/500ML (D5W) 500 ML IV STA (17:22)
[2017-02-10 17:29] LABS: ALBUMIN/GLOBULIN RATIO 0.5 (1.0-2.2); CALCIUM 8.7 mg/dL (8.5-10.3); CREATININE 0.8 mg/dL (0.4-1.0); POTASSIUM 5.1 mmol/L (3.5-5.0); TOTAL PROTEIN 7.2 g/dL (6.7-8.2)
[2017-02-10 17:35] LABS: PLATELET ESTIMATE, MANUAL NORMAL (130-450,000) (NORMAL); PLATELET MORPHOLOGY NORMAL APPEARANCE (NORMAL)
[2017-02-10 17:38] LABS: WBC MORPHOLOGY (MULTIPLE) NORMAL APPEARANCE (NORMAL)
[2017-02-10] MEDS ORDERED: HEPARIN 5,000 UNIT/ML VIAL ONE (17:50)
[2017-02-10] MEDS ORDERED: HEPARIN 25000UNITS/500ML (D5W) 500 ML IV ONE (17:50)
[2017-02-10 19:21] VITALS: BP 126/88
== END 2017-02-10 18:30 | disposition short-term general hospital (02) ==
LOC: ED 13:58
DX: I99.8 Other disorder of circulatory system (principal); I42.9 Cardiomyopathy, unspecified; I10 Essential (primary) hypertension; I25.10 Atherosclerotic heart disease of native coronary artery without angina pectoris; E11.8 Type 2 diabetes mellitus with unspecified complications; I25.2 Old myocardial infarction; Z79.4 Long term (current) use of insulin; Z86.73 Personal history of transient ischemic attack (TIA), and cerebral infarction without residual deficits; Z79.01 Long term (current) use of anticoagulants; Z79.82 Long term (current) use of aspirin; Z89.511 Acquired absence of right leg below knee; Z89.612 Acquired absence of left leg above knee; Z87.891 Personal history of nicotine dependence
CPT/HCPCS: 36415; 80053; 83605; 83690; 85025; 85610; 96361; 96365; 96375; 99284; 99285; J1170

== ENCOUNTER 2017-02-10 18:26 | Outpatient (CLI) | payer MEDICARE, MEDICAID | END 2017-02-10 18:27 | disposition short-term general hospital (02) | LOC: EMS 18:26 | PROVIDERS: ATTEND Surgery | DX: M79.604 Pain in right leg (principal); Z89.511 Acquired absence of right leg below knee | CPT/HCPCS: A0170; A0425; A0426 ==